=== PATIENT | female | born 1990 | race Caucasian/White ===

== ENCOUNTER 2023-04-12 17:33 | Emergency (ER) | payer BC, OTHER, SELFPAY ==
--- NOTE | 2023-04-12 17:37 | PC.NURSE ---
patient left without being triaged
== END 2023-04-12 18:23 | disposition left against medical advice (07) ==
LOC: ANHED 18:04
DX: Z53.21 Procedure and treatment not carried out due to patient leaving prior to being seen by health care provider (principal)
CPT/HCPCS: 99199

== ENCOUNTER 2023-04-18 17:28 | Emergency (ER) | payer BC, OTHER, SELFPAY ==
--- NOTE | ~2023-04-18 | XR_ITS ---
EXAM: XR foot LT min 3V DATE: 04/18/2023 20:45 HISTORY: swelling, pain, bruising . COMPARISON: None available. FINDINGS: Normal mineralization. Old lateral malleolus avulsion fracture fragment. No acute fracture or dislocation. No lytic or blastic lesion. Mild degenerative change at the tibiotalar joint. Mild A chilles and plantar enthesopathy. No erosion or periosteal change. Soft tissues within normal limits. IMPRESSION: No acute osseous finding in the left foot. Reviewed, dictated and finalized at location [facility]. ER
[2023-04-18 17:49] VITALS: BP 122/72; PULSE 76; RESP 16; TEMP 36.7; O2SAT 100
[2023-04-18 19:35] VITALS: BP 119/76; PULSE 68; RESP 15; O2SAT 100
[2023-04-18] MEDS: KETOROLAC 30 MG/ML VIAL (*BKC) 15 MG IM (21:20)
[2023-04-18] MEDS: ACETAMINOPHEN 500 MG TABLET 1000 MG PO (21:21)
--- NOTE | 2023-04-18 21:24 | ED.GENADULT ---
HPI - General Adult General Chief complaint: Extremity Injury, Lower Stated complaint: LEFT FOOT PAIN Time Seen by Provider: 04/18/23 20:36 History of Present Illness HPI narrative: This is a 32-year-old female presenting ED with chief complaint foot pain. She has had it for 2 weeks. It is worse with movement. She has some mild swelling over the top her foot. It is associated with some tingling in her center 3 toes. 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 Related Data Home Medications Medication Instructions Recorded Confirmed fluticasone propionate 50 intranasal 04/04/23 04/04/23 mcg/actuation nasal spray,suspension lisdexamfetamine 70 mg capsule 70 mg PO 04/04/23 04/04/23 (Vyvanse) pregabalin 100 mg capsule 100 mg PO TID 04/04/23 04/04/23 Allergies Allergy/AdvReac Type Severity Reaction Status Date / Time No Known Allergies Allergy Mild Verified 04/04/23 10:43 [facility] Past Medical History Medical History (Updated 04/18/23 @ 21:27 by Chance Saavedra MD) Encounter for removal of intrauterine contraceptive device Social History Social History (Updated 04/04/23 @ 10:47 by Page Johnson CMA) Smoking status: Current every day smoker Tobacco type: e-cigarettes/vaping Alcohol intake: never Substance use: never Living arrangements: with family Occupation/Education: occupation Gender identity (if verbalized by the patient): Female Exam Narrative: APPEARANCE: No apparent distress. Head: atraumatic. EYES: EOMI, NOSE: Atraumatic NECK: Trachea midline RESPIRATORY: No increased rate of breathing CARDIOVASCULAR: RRR, ABDOMINAL: Non-distended MUSCULOSKELETAl: Focal exam of the foot revealed some mild swelling over the top of the foot just proximal to the 2nd through 4th toes. NEURO: Alert. Moving 4/4 extremities SKIN:: Warm, dry. Normal color PSYCHIATRIC: Normal affect Course Vital Signs Vital signs: Vital Signs Temperature 98.1 F 04/18/23 17:49 Pulse Rate 76 04/18/23 17:49 Respiratory Rate 16 04/18/23 17:49 Blood Pressure 122/72 04/18/23 17:49 Pulse Oximetry 100 04/18/23 17:49 Temperature 98.1 F 04/18/23 17:49 Pulse Rate 76 04/18/23 17:49 Respiratory Rate 16 04/18/23 17:49 Blood Pressure 122/72 04/18/23 17:49 Pulse Oximetry 100 04/18/23 17:49 Medical Decision Making MDM Narrative Medical decision making narrative: -Course: 32-year-old female presenting with foot pain. X-ray negative. Patient treated with NSAIDs and given Podiatry follow-up -DDX includes but is not limited to: Saenz's neuroma, metatarsalgia arthritis, neuropathy -Co-morbidities complicating care: Neuropathy -Social determinants of health: Works at [employer] -Independent interpretation of studies: X-ray negative -Interventions: Toradol Tylenol -Shared decision making / Disposition: Discharge -RX Motrin Tylenol Vital Signs Vital Signs: Vital Signs Temperature 98.1 F 04/18/23 17:49 Pulse Rate 76 04/18/23 17:49 Respiratory Rate 16 04/18/23 17:49 Blood Pressure 122/72 04/18/23 17:49 Pulse Oximetry 100 04/18/23 17:49 Temperature 98.1 F 04/18/23 17:49 Pulse Rate 76 04/18/23 17:49 Respiratory Rate 16 04/18/23 17:49 Blood Pressure 122/72 04/18/23 17:49 Pulse Oximetry 100 04/18/23 17:49 Discharge Plan Discharge Clinical Impression: Acute foot pain Patient Disposition: Home, Self-Care Condition: Stable Instructions: Antibiotic Form, Metatarsalgia (DC) Additional Instructions: please take Motrin Tylenol as instructed. Please follow-up Podiatry Prescriptions: New ibuprofen 800 mg tablet 800 mg PO TID PRN (Reason: pain) 7 Days Qty: 21 0RF acetaminophen 500 mg tablet 1,000 mg PO TID PRN (Reason: zena) 7 Days Qty: 42 0RF No Action pregabalin 100 mg capsule 100 mg PO TID fluticasone propionate 50 mcg/actuation spray,suspension intranasal lisdexamfetami
[2023-04-18 21:49] VITALS: BP 124/77; PULSE 73; RESP 16; O2SAT 100
== END 2023-04-18 21:50 | disposition home or self-care (01) ==
PROVIDERS: Emergency Provider Emergency Medicine; PCP Family Medicine
DX: M79.672 Pain in left foot (principal); F17.290 Nicotine dependence, other tobacco product, uncomplicated
CPT/HCPCS: 73630; 96372; 99283; A9270; J1885

== ENCOUNTER 2023-05-13 19:31 | Emergency (ER) | payer BC, OTHER, SELFPAY ==
[2023-05-13 19:40] VITALS: BP 131/77; PULSE 78; RESP 14; TEMP 36; O2SAT 96
--- NOTE | 2023-05-13 20:55 | ED.DENTAL ---
HPI - Dental/Oral General Chief complaint: Dental/Oral Stated complaint: broken tooth Time Seen by Provider: 05/13/23 19:54 History of Present Illness HPI Narrative: 32-year-old female presenting with dental pain. States that she thinks that she cracked 1 of her top molars a few days ago. She saw her dentist yesterday who got x-rays. They were unsure if they needed to pull the tooth or if she needed a root canal so they scheduled her to see an press set up person in 4 days. They sent her home with Tylenol with codeine and ibuprofen but no antibiotics. She states that the pain has continued. No swelling or fevers. No further complaints. Related Data Home Medications Medication Instructions Recorded Confirmed fluticasone propionate 50 intranasal 04/04/23 04/21/23 mcg/actuation nasal spray,suspension lisdexamfetamine 70 mg capsule 70 mg PO 04/04/23 04/21/23 (Vyvanse) pregabalin 100 mg capsule 100 mg PO TID 04/04/23 04/21/23 Allergies Allergy/AdvReac Type Severity Reaction Status Date / Time No Known Allergies Allergy Mild Verified 04/21/23 09:10 Review of Systems Review of Systems: All systems reviewed & are unremarkable except as noted in HPI and below PMFSH Past Medical History Medical History Encounter for removal of intrauterine contraceptive device Social History Social History Smoking status: Current every day smoker Tobacco type: e-cigarettes/vaping Alcohol intake: never Substance use: never Living arrangements: with family Occupation/Education: occupation Gender identity (if verbalized by the patient): Female Exam Narrative: GENERAL: Well-appearing, In no acute distress HEAD: Normocephalic, atraumatic. EYES: PERRLA and EOMI. ENT: +tenderness of tooth #3, no obvious cavities, no abscess NECK: Supple. CHEST: No respiratory distress. HEART: Regular rate and rhythm. EXTREMITIES: Normal range of motion. SKIN: Warm, dry, no rash. NEURO: Alert and oriented x3. PSYCH: Normal mood and affect. Course Vital Signs Vital signs: Vital Signs Temperature 96.8 F L 05/13/23 19:40 Pulse Rate 78 03/22/24 19:40 Respiratory Rate 14 05/13/23 19:40 Blood Pressure 131/77 05/13/23 19:40 Pulse Oximetry 96 05/13/23 19:40 Temperature 96.8 F L 05/13/23 19:40 Pulse Rate 78 05/13/23 19:40 Respiratory Rate 14 05/13/23 19:40 Blood Pressure 131/77 05/13/23 19:40 Pulse Oximetry 96 05/13/23 19:40 MDM - Dental/Oral MDM Narrative Medical decision making narrative: 32-year-old female presenting with dental pain. Vitals are stable. Tooth 3 is tender with palpation. Patient has already seen her dentist, has an appointment with an press set up person in 4 days. She is already on ibuprofen and Tylenol with codeine. Will start her on Augmentin. She is safe for outpatient management. Discharged stable condition. Differential Diagnosis Differential diagnosis: Likely gingival abscess, dental caries, toothache, dental abscess, fracture of tooth and aphthous ulcer Medical Records Attestation: I reviewed the patient's medical records. Critical Care Time Critical Care Time Critical Care Time: No Discharge Plan Discharge Clinical Impression: Toothache Patient Disposition: Home, Self-Care Condition: Stable Instructions: Antibiotic Form, Toothache (ED) Additional Instructions: Please complete the antibiotics as prescribed. Please use the ibuprofen and Tylenol with codeine as prescribed. Follow up with the press set up person as scheduled. Prescriptions: New amoxicillin-pot clavulanate 875-125 mg tablet 1 tablet PO Q12H Qty: 14 0RF No Action pregabalin 100 mg capsule 100 mg PO TID fluticasone propionate 50 mcg/actuation spray,suspension intranasal lisdexamfetamine [Vyvanse] 70 mg capsule 70 mg PO Follow-up/Ref
[2023-05-13] MEDS: oxyCODONE/ACETAMINOPHEN (*CRX) 5-325 MG TABLET 1 TABLET PO (21:04)
[2023-05-13] MEDS: KETOROLAC 30 MG/ML VIAL (*BKC) IM (21:04)
[2023-05-13] MEDS: AMOXICILLIN/CLAVULANATE K 875-125 MG TAB 1 TABLET PO (21:10)
== END 2023-05-13 21:16 | disposition home or self-care (01) ==
PROVIDERS: Emergency Provider Emergency Medicine; PCP Family Medicine
DX: K08.89 Other specified disorders of teeth and supporting structures (principal); F17.290 Nicotine dependence, other tobacco product, uncomplicated
CPT/HCPCS: 96372; 99283; A9270; J1885

== ENCOUNTER 2023-05-18 05:36 | Emergency (ER) | payer BC, OTHER, SELFPAY ==
[2023-05-18 05:40] VITALS: BP 147/93; PULSE 95; RESP 18; TEMP 36.4; O2SAT 99
--- NOTE | 2023-05-18 05:48 | ED.DENTAL ---
HPI - Dental/Oral General Chief complaint: Dental/Oral Stated complaint: dental pain, upper right Time Seen by Provider: 05/18/23 05:47 History of Present Illness HPI Narrative: Patient is a 32-year-old female who presents emergency department this evening complaining of a toothache. Patient admits that she had a root canal performed earlier today and she was placed on antibiotics but was not provided with pain medications. Patient states that her tooth continues to bother her and she could not sleep. She denies any fevers or chills, and is currently denying any additional symptoms. There are no other modifying, alleviating, or precipitating factors at this time. Related Data Home Medications Medication Instructions Recorded Confirmed fluticasone propionate 50 intranasal 04/04/23 04/21/23 mcg/actuation nasal spray,suspension lisdexamfetamine 70 mg capsule 70 mg PO 04/04/23 04/21/23 (Vyvanse) pregabalin 100 mg capsule 100 mg PO TID 04/04/23 04/21/23 Allergies Allergy/AdvReac Type Severity Reaction Status Date / Time No Known Allergies Allergy Mild Verified 04/21/23 09:10 Review of Systems Review of Systems: All systems are reviewed and are negative unless stated otherwise in the HPI. [facility] Past Medical History Medical History Encounter for removal of intrauterine contraceptive device Social History Social History Smoking status: Current every day smoker Tobacco type: e-cigarettes/vaping Alcohol intake: never Substance use: never Living arrangements: with family Occupation/Education: occupation Gender identity (if verbalized by the patient): Female Exam Narrative: General: Alert, awake, afebrile, in no acute distress. HEENT: PERRL, no rhinorrhea, no post nasal drip, oropharynx clear, no evidence dental abscess, good dental hygiene. Neck: Trachea midline, no JVD, no lymphadenopathy. Cardiovascular: Regular rate and rhythm, no murmurs, rubs or gallops, no peripheral edema. Respiratory: Clear to auscultation bilaterally, no tachypnea, no wheezing, no rhonchi, no rubs, no respiratory distress. Abdomen: Soft, nontender, nondistended, no rebound, no guarding, no peritoneal signs. Musculoskeletal: No joint swelling or deformity, normal muscle tone. Skin: No rashes or petechia, no signs of infection. Psychiatric: Alert and oriented, normal behavior and judgment for situation. Neurological: Alert and oriented to person, place, and time. Follows all commands. No focal deficits, speech is clear and fluent. Course Vital Signs Vital signs: Vital Signs Temperature 97.5 F L 05/18/23 05:40 Pulse Rate 95 05/18/23 05:40 Respiratory Rate 18 05/18/23 05:40 Blood Pressure 147/93 H 05/18/23 05:40 Pulse Oximetry 99 05/18/23 05:40 Oxygen Delivery Room Air 05/18/23 05:40 Temperature 97.5 F L 05/18/23 05:40 Pulse Rate 95 05/18/23 05:40 Respiratory Rate 18 05/18/23 05:40 Blood Pressure 147/93 H 05/18/23 05:40 Pulse Oximetry 99 05/18/23 05:40 Oxygen Delivery Room Air 05/18/23 05:40 MDM - Dental/Oral MDM Narrative Medical decision making narrative: The patient was evaluated by myself in the emergency department. History is obtained from patient who is an independent historian and physical exam was performed. External medical records were reviewed at this time. Patient was administered an oral Keyes 5-325 mg after confirming that she did not drive here and has a ride home. She was informed that she will not be prescribed any narcotics to go home on as the root canal should have taking care of her pain and that if she continues to have pain she needs to follow up with her dentist for further evaluation patient is agreeable. Comorbidities impacting this visit include none. I have evaluated and discussed social determinants of health with the
[2023-05-18] MEDS: HYDROcodone/acetaminophen (*CRX) 7.5-325 MG TABLET 1 TAB PO (06:22)
== END 2023-05-18 06:24 | disposition home or self-care (01) ==
PROVIDERS: Emergency Provider Emergency Medicine; PCP Family Medicine
DX: K08.89 Other specified disorders of teeth and supporting structures (principal); Z98.818 Other dental procedure status; F17.290 Nicotine dependence, other tobacco product, uncomplicated
CPT/HCPCS: 99283; A9270

== ENCOUNTER 2023-10-16 21:20 | Emergency (ER) | payer BC, SELFPAY ==
[2023-10-16 21:23] VITALS: BP 142/87; PULSE 93; RESP 15; TEMP 36.5; O2SAT 100
--- NOTE | 2023-10-17 05:00 | PC.NURSE ---
Radiology notified of need for 7am outpatient ultrasound appt.
--- NOTE | 2023-10-17 05:11 | ED.GENADULT ---
HPI - General Adult General Chief complaint: Extremity Injury, Lower Stated complaint: lump on R leg , a little SOB Time Seen by Provider: 10/17/23 04:46 History of Present Illness HPI narrative: Patient is a 32-year-old female who presents the emergency department this evening complaining of an area of erythema and tenderness to her right scott region. Patient states that she has had a bump there for a few months but recently noticed that the area was becoming more red and warm to the touch and tender. Patient was concerned about DVT and decided to come to the emergency department for further evaluation. Patient states that she is approximately 4 weeks . Denies any additional symptoms or concerns at this time including any chest pain or shortness of breath. Related Data Home Medications Medication Instructions Recorded Confirmed fluticasone propionate 50 intranasal 04/04/23 04/21/23 mcg/actuation nasal spray,suspension lisdexamfetamine 70 mg capsule 70 mg PO 04/04/23 04/21/23 (Vyvanse) pregabalin 100 mg capsule 100 mg PO TID 04/04/23 04/21/23 Allergies Allergy/AdvReac Type Severity Reaction Status Date / Time No Known Allergies Allergy Mild Verified 10/16/23 21:26 Review of Systems Review of Systems: All systems are reviewed and are negative unless stated otherwise in the HPI. [facility] Past Medical History Medical History Encounter for removal of intrauterine contraceptive device Social History Social History Smoking status: Current every day smoker Tobacco type: e-cigarettes/vaping Alcohol intake: never Substance use: never Living arrangements: with family Occupation/Education: occupation Gender identity (if verbalized by the patient): Female Exam Narrative: General: Alert, awake, afebrile, in no acute distress. HEENT: PERRL, no rhinorrhea, no post nasal drip, oropharynx clear. Cardiovascular: Regular rate and rhythm, no murmurs, rubs or gallops, no peripheral edema. Respiratory: Clear to auscultation bilaterally, no tachypnea, no wheezing, no rhonchi, no rubs, no respiratory distress. Abdomen: Soft, nontender, nondistended, no rebound, no guarding, no peritoneal signs. Musculoskeletal: Right mid scott round area of erythema that is tender to touch measuring approximately 2 x 2 cm, no calf swelling or tenderness to palpation Skin: No rashes or petechia, no signs of infection. Neurological: Alert and oriented to person, place, and time. Follows all commands. No focal deficits, speech is clear and fluent. Course Vital Signs Vital signs: Vital Signs Temperature 97.7 F 10/16/23 21:23 Pulse Rate 93 10/16/23 21:23 Respiratory Rate 15 10/16/23 21:23 Blood Pressure 142/87 H 10/16/23 21:23 Pulse Oximetry 100 10/16/23 21:23 Oxygen Delivery Room Air 10/16/23 21:23 Temperature 97.7 F 10/16/23 21:23 Pulse Rate 93 10/16/23 21:23 Respiratory Rate 15 10/16/23 21:23 Blood Pressure 142/87 H 10/16/23 21:23 Pulse Oximetry 100 10/16/23 21:23 Oxygen Delivery Room Air 10/16/23 21:23 Medical Decision Making MDM Narrative Medical decision making narrative: The patient was evaluated by myself in the emergency department. History is obtained from patient who is an independent historian and physical exam was performed. External medical records were reviewed at this time. Patient was informed that the area does appear to be a local skin infection/ cellulitis. No evidence of fluid collection or abscess. Bedside ultrasound was performed at this time and did reveal cobblestoning concerning with cellulitis patient was informed that she will be placed on an oral antibiotic. Patient was also informed that she will be scheduled for an outpatient ultrasound of right lower extremity to rule out a DVT which will be scheduled in the morning at
[2023-10-17 05:25] VITALS: BP 132/72; PULSE 88; RESP 14; O2SAT 100
== END 2023-10-17 05:27 | disposition home or self-care (01) ==
PROVIDERS: Emergency Provider Emergency Medicine; PCP Family Medicine
DX: L03.115 Cellulitis of right lower limb (principal); F17.290 Nicotine dependence, other tobacco product, uncomplicated
CPT/HCPCS: 99283

== ENCOUNTER 2023-10-17 07:06 | Outpatient (CLI) | payer BC, SELFPAY ==
--- NOTE | ~2023-10-17 | US_ITS ---
Duplex Sonography of the right extremity: Indication: Pain Findings: Sagittal and transverse B-mode images as well as color-flow imaging were performed on the r ight femoral and popliteal veins. B-mode examination was done without and with compression in the tr ansverse plane. There is good visualization of the common femoral, proximal profunda femoral, superf icial femoral, greater saphenous, and popliteal veins. Normal flow was seen on color-flow imaging. N ormal compressibility was demonstrated. Visualized calf veins are also patent. Impression: No evidence of deep vein thrombosis involving the right lower extremity. Reviewed, dictated and finalized at location M. Impression: No evidence of deep vein thrombosis involving the right lower extremity.
== END 2023-10-17 07:07 | disposition home or self-care (01) ==
PROVIDERS: Visit Provider Emergency Medicine
DX: M79.604 Pain in right leg (principal)
CPT/HCPCS: 93971

== ENCOUNTER 2023-11-02 10:28 | Outpatient (CLI) | payer BC, SELFPAY ==
[2023-11-02 19:33] LABS: Basophils Percent Auto 0.3 % (0.2-1.2); Eosinophils Absolute Auto 0.1 K/mm3 (0-0.3); Eosinophils Percent Auto 0.9 % (0-4.4); Hematocrit 37.4 % (37.0-47.0); Hemoglobin 12.5 g/dL (12.0-15.0); Immature Granulocyte Absolute 0.01 K/mm3 (0.00-0.031); Immature Granulocyte Percent A 0.1 % (0-0.5); Lymphocytes Absolute Auto 1.41 K/mm3 (0.9-3.2); Lymphocytes Percent Auto 17.8 % (18.3-44.2); Mean Corpuscular HGB Conc 33.4 g/dl (32-36); Mean Corpuscular Volume 92.8 fl (80-100); Mean Platelet Volume 10.9 fl (7.4-10.4); Monocytes Absolute Auto 0.5 K/mm3 (0.1-0.6); Monocytes Percent Auto 6.4 % (2.6-8.5); Neutrophils Absolute Auto 5.9 K/mm3 (1.3-6.7); Neutrophils Percent Auto 74.5 % (45.5-73.1); Platelet Count Result 256 k/mm3 (150-375); Red Blood Count 4.03 M/mm3 (4.2-5.4); Red Cell Distribution Width 13.1 % (11.5-14.5); White Blood Count 7.9 K/mm3 (4.5-10.0)
[2023-11-02 20:23] LABS: Alanine Aminotransferase 14 U/L (6-35); Albumin Level 3.9 g/dL (3.5-5.1); Alkaline Phosphatase 55 U/L (38-126); Anion Gap 13 mmol/L (4-12); Aspartate Amino Transferase 31 U/L (14-36); Bilirubin,Total 0.3 mg/dL (0.2-1.3); Blood Urea Nitrogen 11 mg/dL (7-17); Carbon Dioxide 21 mmol/L (22-30); Chloride 102 mmol/L (98-107); Estimated Glomerular Filt Rate > 60; Glucose 110 mg/dL (65-110); Glucose 1 Hour PP 50gm Dose 109 mg/dL; Potassium 3.4 mmol/L (3.4-5.0); Sodium 136 mmol/L (137-145)
[2023-11-02 20:43] LABS: Hepatitis B Surface Antigen Negative (Negative); Rubella IgG Antibody 40.4 IU/ML
[2023-11-02 20:45] LABS: HIV 1/2 Ab P24 Ag Result Negative (Negative)
[2023-11-03 01:37] LABS: Rapid Plasma Reagin Non-Reactive (NonReactive)
== END 2023-11-02 10:29 | disposition home or self-care (01) ==
PROVIDERS: Visit Provider Obstetrics & Gynecology
DX: Z34.90 Encounter for supervision of normal pregnancy, unspecified, unspecified trimester (principal); Z3A.00 Weeks of gestation of pregnancy not specified; Z87.59 Personal history of other complications of pregnancy, childbirth and the puerperium
CPT/HCPCS: 36415; 80053; 82947; 84702; 85025; 86592; 86644; 86703; 86747; 86762; 86787; 86850; 86900; 86901; 87086; 87340; G0432

== ENCOUNTER 2023-11-05 10:29 | Emergency (ER) | payer BC, SELFPAY ==
--- NOTE | 2023-11-05 10:44 | PC.NURSE ---
No answer when called for in lobby for triage.
== END 2023-11-05 11:02 | disposition left against medical advice (07) ==
LOC: ANHED 10:53
DX: Z53.21 Procedure and treatment not carried out due to patient leaving prior to being seen by health care provider (principal)
CPT/HCPCS: 99199

== ENCOUNTER 2024-03-26 11:11 | Outpatient (RCR) | payer BC, SELFPAY ==
[2024-03-26 11:31] VITALS: BP 118/65; PULSE 92
[2024-03-26 11:46] VITALS: BP 114/65; PULSE 93
[2024-03-26 12:01] VITALS: BP 112/67; PULSE 90
[2024-03-26 12:16] VITALS: BP 120/70; PULSE 100
[2024-03-26 12:20] VITALS: BP 118/65; PULSE 98
== END 2024-06-24 23:59 | disposition home or self-care (01) ==
LOC: ANHOBOP 11:11
PROVIDERS: Visit Provider Obstetrics & Gynecology
DX: O36.8190 Decreased fetal movements, unspecified trimester, not applicable or unspecified (principal)
CPT/HCPCS: 59025

== ENCOUNTER 2024-04-02 15:25 | Outpatient (CLI) | payer BC, SELFPAY ==
--- OUTSIDE RECORDS SUMMARY | 2024-04-02 15:34 | XMS_ITS | Encounter Summary ---
Author Organization [facility] Address [address] [place] [address] Phone Care Team Providers Care Surveillance Sensor Operator Name Role Phone Enrrique Ordonez MD Primary Care Provider [phone] Rohit Hodgson APRN, CNP Primary Care Pr ovider Reason for Visit * Reason Comments Medication Refill Encounter Details Date Type Department Care Team (Late st Contact Info) Description 06/23/2021 Refill [facility] - Family Medicine [facility] [address] [place] [id number] Enrrique Ordonez MD [address] [place] [address] Medication Refill Social History Tobacco Use Types Packs/Day Years Used Date Smoking Tobacco: Never Cigarettes Smokeless Tobacco: Never Alcohol Use Standard Drinks/Week Comments No 0 (1 standard drink = 0.6 oz pur e alcohol) Quit in 2018 PHQ-2 Answer Date Recorded Total Score - Questions 1-9 10 07/22 Education Answer Date Recorded What is the highest level of school you have completed or the highest degree you have received? Associate degree: academic program 02/13/2020 Comments No Sex and Gender Information Value Date Recorded Sex Assigned at Not on file Legal Sex Female 7:04 AM CDT Gender Identity Female 11/18/2022 7:00 PM CDT Sexual Orientation Straight 11/18/2022 7: 00 PM CDT Occupation Industry Job Start Date Job End Date [employer] Not on file Not on file Not on file documented as of this encounter Miscellaneous Notes * Telephone Encounter - Jenni Crawford RN - 06/24/2021 11:28 AM CDT Medication failed the protocol, provider to review and approve the medication order if appropriate. Requested Prescriptions Pending Prescriptions Disp Refills pregabalin (LYRICA) 100 MG Capsule [Pharmacy Med Name: PREGABALIN 100MG CAPSULES] 90 Capsule 0 Sig: TAKE 1 CAPSULE BY MOUTH THREE TIMES DAILY Not Delegated - Anticonvulsants Excluding Benzodiazepines Protocol Failed - 06/23/2021 7:32 PM Failed - This refill cannot be delegated Passed - Visit with relevant provider in past 12 months or upcoming 90 days Recent Visits Date Type Provider Dept 04/21/21 Office Visit Enrrique Ordonez MD [facility] 03/03/21 Telemedicine Enrrique Ordonez MD [facility] 12/10/20 Office Visit Enrrique Ordonez MD [facility] 07/01/20 Telemedicine Enrrique Ordonez MD [facility] Showing recent visits within past 365 days and meeting all other requirements Future Appointments No visits were found meeting these conditions. Showing future appointments within next 90 days and meeting all other requirements documented in this encounter Plan of Treatment Not on file documented as of this encounter Visit Diagnoses Diagnosis Neuropathy Mononeuritis of unspecified site documented in this encounter Additional Health Concerns Infection Onset Date Last Indicated Resolved Time COVID - 19 12/21/2022 12/21/2022 12/31/2022 12:1 6 AM MANAGEMENT ASSISTANT Assessment Noted Time PHQ-9 Depression Total Score: 10 020 9:19 AM CDT documented as of this encounter Care Teams Surveillance Sensor Operator Relationship Specialty Start Date End Date Enrrique Ordonez MD PCP - General Family Medicine 08/03/19 10/12/23 Rohit Hodgson APRN, MAIL PROCESSING MACHINE OPERATOR [address] [place] [address] PCP - General Advanced Practice Nurse 10/14/23 documented as of this encounter
--- OUTSIDE RECORDS SUMMARY | 2024-04-02 15:34 | XMS_ITS | Encounter Summary ---
Author Organization [facility] Address [address] [place] [address] Phone Care Team Providers Care [employer] Name Role Phone Enrrique Ordonez MD Primary Care Provider [phone] Rohit Hodgson APRN, CNP Primary Care Pr ovider Reason for Visit * Reason Comments Medication Refill Encounter Details Date Type Department Care Team (Late st Contact Info) Description 07/24/2021 Refill [facility] Medical [facility] - Family Medicine [facility] [address] [place] [phone] Enrrique Ordonez MD [address] [place] [address] Medication Refill Social History Tobacco Use Types [...] Industry Job Start Date Job End Date [employer] Not on file Not on file Not on file documented as of this encounter Miscellaneous Notes * Telephone Encounter - Jenni Crawford RN - 07/28/2021 8:15 AM CDT Name from pharmacy: PREGABALIN 100MG CAPSULES Will file in chart as: pregabalin (LYRICA) 100 MG Capsule The original prescription was reordered on 07/24/2021 by Enrrique Ordonez MD. * Telephone Encounter - Helen Bradford RN - 07/24/2021 4:16 PM CDT Duplicate request, original sent to PCP documented in this encounter Plan of Treatment Not on file documented as of this encounter Visit Diagnoses Diagnosis Neuropathy Mononeuritis of unspecified site documented in this encounter Additional Health Concerns Infection Onset Date Last Indicated Resolved Time COVID - 19 12/21/2022 12/21/2022 12/31/2022 12:1 6 AM HAT STOCK LAMINATING MACHINE OPERATOR Assessment Noted Time PHQ-9 Depression Total Score: 10 08/02/ 020 9:19 AM CDT documented as of this encounter Care Teams [employer] Relationship Specialty Start Date End Date Enrrique Ordonez MD PCP - General Family Medicine 08/03/19 10/12/23 Rohit Hodgson, METAL BUGGY OPERATOR, CODING AUDITOR [address] [address] PCP - General Advanced Practice Nurse 10/14/23 documented as of this encounter
--- OUTSIDE RECORDS SUMMARY | 2024-04-02 15:34 | XMS_ITS | Encounter Summary ---
Author Organization [facility] Address [address] [place] [address] Phone Care Team Providers Care Reconciliation Machine Operator Name Role Phone Enrrique Ordonez MD Primary Care Provider [phone] Rohit Hodgson APRN, CNP Primary Care Pr ovider Reason for Visit * Reason Comments Medication Refill Encounter Details Date Type Department Care Team (Late st Contact Info) Description 10/25/[address] [facility] Medical Group - Family Medicine [facility] [address] [place] [address] Rohit Hodgson APRN, EMMANUEL [address] [address] Medication Refill Social History Tobacco Use Types Packs/Day Years Used Date Smoking Tobacco: Never Smokeless Tobacco: Never Alcohol Use Standard Drinks/Week Comments No 0 (1 standard drink = 0.6 oz pur e alcohol) Quit in 2018 PHQ-2 Answer Date Recorded Total Score - Questions 1-9 10 07/22 Education Answer Date Recorded What is the highest level of school you have completed or the highest degree you have received? 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 Requested Prescriptions Pending Prescriptions Disp Refills Lidocaine Viscous HCl (XYLOCAINE) 2 % Solution [Pharmacy Med Name: LIDOCAINE 2% VISC ORAL SOLUTION]300 mL 0 Sig: GARGLE AND SWALLOW 10ML BY MOUTH/THROAT EVERY 4 HOURS NEEDED FOR PAIN OR IRRITATION. Not Delegated - Off Protocol Failed - 10/25/2022 7:59 PM Failed - This refill cannot be delegated Passed - Visit with relevant provider in past 12 months or upcoming 90 days Recent Visits Date Type Provider Dept 04/26/22 Telemedicine Rohit Hodgson APRN, EMMANUEL [facility] [place] 02/01/22 Office Visit Enrrique Ordonez MD [facility] 01/04/22 Office Visit Enrrique Ordonez MD [facility] 12/07/21 Office Visit Enrrique Ordonez MD [facility] 11/09/21 Office Visit Enrrique Ordonez MD [facility] [place] Showing recent visits within past 365 days and meeting all other requirements Future Appointments No visits were found meeting these conditions. Showing future appointments within next 90 days and meeting all other requirements documented in this encounter Plan of Treatment Not on file documented as of this encounter Visit Diagnoses Diagnosis Strep pharyngitis Streptococcal sore throat documented in this encounter Additional Health Concerns Infection Onset Date Last Indicated Resolved Time COVID - 19 12/21/2022 12/21/2022 12/31/2022 12:1 6 AM SKIN CARE INSTRUCTOR Assessment Noted Time PHQ-9 Depression Total Score: 10 020 9:19 AM CDT documented as of this encounter Care Teams Reconciliation Machine Operator Relationship Specialty Start Date End Date Enrrique Ordonez MD PCP - General Family Medicine 08/03/19 10/12/23 Rohit Hodgson APRN, INSULATION HOSEMAN [address] [place] [address] PCP - General Advanced Practice Nurse 10/14/23 documented as of this encounter
--- OUTSIDE RECORDS SUMMARY | 2024-04-02 15:34 | XMS_ITS | Encounter Summary ---
Author Organization [facility] Address [address] 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 No / Unsure 04/13/2021 9:52 AM BLOGS MANAGER documented as of this encounter Miscellaneous Notes * Telephone Encounter - Noa Arce - 04/13/2021 9:52 AM CST Images from the original note were not included. Travel Screening Question Response In the last month, have you been in contact with someone who was confirmed or suspected to have Coronavirus / COVID-19? No / Unsure Have you had a COVID-19 viral test in the last 14 days? Do you have any of the following new or worsening symptoms? Fever;Cough;Fatigue Have you traveled internationally in the last month? No Travel History Travel since 03/13/21 No documented travel since 03/13/21 Is patient experiencing any of the following? Trouble breathing: Persistent pain or pressure in the chest: New confusion: Inability to wake or stay awake: Pale, you, or blue colored skin, lips, or nail Date symptoms began or date of exposure or date of positive test:N/A If none of the above symptoms continue with the below advice: 1. Testing is recommended- go online to [email or web address] for testing locations, utilize [employer] toschedule testing, or use the [employer] tana on your smart phone to locate local testing sites. 2. Remain at home while awaiting test results and until after at least 5 day since symptoms first appeared AND at least 24 hours with no fever without the use of fever-reducing medications AND symptoms have improved. 3. Stay at home unless medical care is advised by your provider 4. Separate yourself from other people and animals in your home as much as possible, wear a well-fitting mask when around others 5. Clean all high touch surfaces everyday. 6. Monitor your symptoms, if you have an emergency warning sign (including trouble breathing) seek emergency medical care immediately. 7. Loss of taste and smell may persist for weeks or months after recovery and need not delay the end of isolation. 8. Utilize cdc.gov for any additional information. [facility] is evaluating the most recent CDC guidance and will make changes as necessary S MANAGER documented in this encounter Plan of Treatment Not on file documented as of this encounter Visit Diagnoses Not on filedocumented in this encounter Additional Health Concerns Infection Onset Date Last Indicated Resolved Time COVID - 19 12/21/2022 12/21/2022 12/31/2022 12:1 6 AM BLOGS MANAGER Assessment Noted Time PHQ-9 Depression Total Score: 10 020 9:19 AM CDT documented as of this encounter Care Teams Educational Diagnostician Relationship Specialty Start Date End Date Enrrique Ordonez MD PCP - General Family Medicine 08/03/19 10/12/23 Rohit Hodgson, DIGITAL COMPUTER SYSTEMS ANALYST, JUMP ROLL OPERATOR [address] [address] PCP - General Advanced Practice Nurse 10/14/23 documented as of this encounter
--- OUTSIDE RECORDS SUMMARY | 2024-04-02 15:34 | XMS_ITS | Encounter Summary ---
Author Organization [facility] Address [address] [place] [address] Phone Care Team Providers Care Drainage Inspector Name Role Phone Enrrique Ordonez MD Primary Care Provider [phone] Rohit Hodgson APRN CANDLEMAKING LABORER Primary Care Pr ovider Reason for Visit * Reason Onset Date Comments Medication Refill Medication Refill 10/28/2020 Medication Refill 10/30/2020 Encounter Details Date Type Department Care Team (Late st Contact Info) Description 10/24/2020 Refill [facility] Medical Group - Family Medicine [facility] [address] [place] [address] Enrrique Ordonez MD [address] [place] [address] Medication Refill; Medication Refill; Medication Refill Social History Tobacco Use Types [...] 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 To [facility]? She will schedule her annual appointment * Telephone Encounter - Jenni Crawford RN - 10/28/2020 10:23 AM CDT Name from pharmacy: PREGABALIN 75MG CAPSULES Will file in chart as: pregabalin (LYRICA) 75 MG Capsule The original prescription was discontinued on 07/01/2020 by Enrrique Ordonez MD for the following reason: Lack of Efficacy. Dose was increased to 100 mg tabs documented in this encounter Plan of Treatment Not on file documented as of this encounter Visit Diagnoses Diagnosis Neuropathy Mononeuritis of unspecified site documented in this encounter Additional Health Concerns Infection Onset Date Last Indicated Resolved Time COVID - 19 Confirmed 03/07/2021 03/07/2021 022 12:16 AM FRONT OFFICE ATTENDANT COVID - 19 12/21/2022 12/21/2022 12/31/2022 12:1 6 AM FRONT OFFICE ATTENDANT Assessment Noted Time PHQ-9 Depression Total Score: 10 020 9:19 AM CDT documented as of this encounter Care Teams Drainage Inspector Relationship Specialty Start Date End Date Enrrique Ordonez MD PCP - General Family Medicine 08/03/19 10/12/23 Rohit Hodgson, INCIDENT HANDLER, CANDLEMAKING LABORER [address] [address] PCP - General Advanced Practice Nurse 10/14/23 documented as of this encounter
--- OUTSIDE RECORDS SUMMARY | 2024-04-02 15:34 | XMS_ITS | Clinical Summary ---
Author Organization [facility] Address [address] [place] [address] Phone Care Team Providers Care Rn Acute Name Role Phone Rohit Hodgson APRN, CNP Primary Care Pr ovider Allergies No known active allergies Medications ondansetron (Zofran) 4 MG Tablet Take 4 mg by mouth every 6 hours as needed for Nausea - 1st line. Active acetaminophen (Tylenol) 325 MG Tablet Take 325 mg by mouth every 4 hours as needed. Active Active Problems Problem Noted Date Diagnosed Date Insomnia 01/04/2022 Increased urinary frequency 01/04/2022 Anxiety 05/07/2020 Attention deficit disorder (ADD) without hyperac tivity 01/02/2020 Visit for annual health examination (Adult) 07/22 Hypothyroid 08/03/2019 Viral hepatitis C 02/20/2018 Overview (08/03/2019): New diagnosis of HCV on 02/18/18 in setting of h/o IVDU. GI consult as above for transaminitis. HCV PCR pending. Cluster B personality disorder 09/25/2012 Overview (08/03/2019): Overview: Personality disorder Depressive disorder 04/13/2012 Overview (08/03/2019): Last Assessment & Plan: Unspecified Depressive Disorder (F 32.9) (secondary diagnoses: Stimulant use disorder, severe, in partial remission Opioid use disorder, severe, in remission) This is a 27 year-old woman with a history of significant substance use and affective symptoms who was admitted for transaminitis. At this time, it is difficult to assign a specific affective disorder diagnosis given significant drug use overlaying her depressive/manic symptoms. It would appear based on history that patient has never had a sustained period of mood elevation/mood depression meeting full criteria for either a Major Depressive Disorder or Bipolar Affective Disorder. However, patient has also never been truly sober for more than 6 months since the onset of substance use at age 19. Furthermore, her lifelong story of emotional dysregulation, volatile relationships, chronic sense of emptiness, fear of abandonment and impulsivity was concerning for Borderline Personality Disorder, which could contribute to the affective symptoms. Given these complicating factors, would assign Unspecified Depressive Disorder, with differentials between substance- induced mood disorder, Major Depressive Disorder, and cluster B personality disorder. Delirium is lower at the differential given no recent history of waxing/waning mental status and 30/30 MMSE. Mental status exam today was otherwise reassuring; there was no objective evidence of psychomotor retardation, dysthymia, or suicidal ideations. Even more encouraging is that patient demonstrates strong sense of responsibility for her unborn child and good future planning. At this time, patient is chronically at low/moderate risk of harming herself due to impulsivity, history of multiple substance use disorders, unstable social situations, and ongoing medical condition. She is protected by good future planning, sense of obligation, access to healthcare, and supportive family. Recommendations: - please continue excellent medical care - based on today's assessment, it would appear that patient's depressive symptoms are reasonably controlled. Given up-trending liver enzymes, will advise to stop duloxetine 20mg right now as the risks outweigh the benefits at this point - once her liver function normalizes, please start a trial of bupropion (Wellbutrin XL): 150mg PO qAM for seven days, then 300mg PO qAM The benefits/risks/side effects were discussed with the patient. We have chosen this agent as patient has failed the first-line agent (SNRI) and has had possibly unwanted side effect in the past with SSRI (possibly paroxetine). Further questionings revealed that patient has had no significant history of seizure or brain injury, which are contraindications to this medication. - please make sure patient is set up to follow a psychiatrist through the [facility] service, if they haven't already been following Psychiatry will follow peripherally. Please call for any questions or concern. Neuropathy Overview (12/04/2019): legs and arms Estimated Date of Delivery Comme nts Yes 06/21/2024 Resolved Problems Problem Noted Date Diagnosed Date Resolved Date Injury of right wrist 08/03/20192019 Finger injury, right, initial encounter 08/03/2019 12/04/2019 Immunizations Immunization Administration Dates Next Due Covid-19, Mrna, Lnp-s, PF, 1 00 mcg/0.5 mL Dose (Moderna) 07/01/2020,06/03/2020 Influenza Vaccine 03/02/2018 Influenza Vaccine greater than 3 yrs 10/15/2020 Influenza Vaccine, Quadrivalent, PF 11/09/2021 Influenza, Recombinant, Quadrivalent,injectable, Pf 12/07/2019 TDAP Vaccine 03/02/2018 Family History Medical History Relation Name Comments No Known Problems Father No Known Problems Maternal Grandfather No Known Problems Maternal Grandmother Cancer Mother Shameka Hoffmann No Known Problems Paternal Grandfather No Known Problems Paternal Grandmother Relation Name Status Comments Father Maternal Grandfather Maternal Grandmother Mother Shameka Hoffmann Alive Paternal Grandfather Paternal Grandmother Social History Tobacco Use Types Packs/Day Years Used Date Smoking Tobacco: Never Smokeless Tobacco: Never Tobacco Cessation:Counseling Given: No Alcohol Use Standard Drinks/Week Comments No 0 (1 standard drink = 0.6 oz pur e alcohol) Quit in 2018 [facility] Utilities Answer Date Recorded In the past 12 months has [email or web address], gas, oil, or water company threatened to shut off services in your home? No 04/20/2023 Social Connection and Isolat ion Panel [NHANES] Answer Date Recorded In a typical week, how many times do you talk on the phone with family, friends, or neighbors? More than three times a week 04/20/2023 How often do you get togethe r with friends or relatives? Once a week 04/20/2023 How often do you attend [facility] or adventist services? 1 to 4 times per year 04/20/2023 Do you belong to any clubs o r organizations such as congregational groups, unions, fraternal or athletic groups, or school groups? No 04/20/2023 How often do you attend meet ings of the clubs or organizations you belong to? Never 04/20/2023 Are you , , di vorced, , never , or living with a partner? Living with partner 04/20/2023 AUDIT-C Answer Date Recorded Q1: How often do you have a drink containing alcohol? Never 04/20/2023 Q2: How many drinks containi ng alcohol do you have on a typical day when you are drinking? Patient does not drink Q3: How often do you have si x or more drinks on one occasion? Never 04/20/2023 Overall Financial Resource Strain (CARDIA) Answe r Date Recorded How hard is it for you to pa y for the very basics like food, housing, medical care, and heating? Not very hard 04/20/2023 PHQ-2 Answer Date Recorded Total Score - Questions 1-9 10 07/22 [facility] - Occupational Stress Questionnaire Answer Date Recorded Do you feel stress - tense, restless, nervous, or anxious, or unable to sleep at night because your mind is troubled all the time - these days? To some extent 04/20/2023 Exercise Vital Sign Answer Date Recorde d On average, how many days pe r week do you engage in moderate to strenuous exercise (like a brisk walk)? 2 days 04/20/2023 On average, how many minutes do you engage in exercise at this level? 20 min 04/20/2023 Hunger Vital Sign Answer Date Recorded Within the past 12 months, y ou worried that your food would run out before you got the money to buy more. Never true 04/20/19 24 Within the past 12 months, t he food you bought just didn't last and you didn't have money to get more. Never true 04/20/2023 PRAPARE - Transportation Answer Date Re corded In the past 12 months, has l ack of transportation kept you from medical appointments or from getting medications? No 03/25 In the past 12 months, has l ack of transportation kept you from meetings, work, or from getting things needed for daily living? No 04/20/2023 Housing Stability Vital Sign Answer Elias e Recorded In the last 12 months, was t here a time when you were not able to pay the mortgage or rent on time? No 04/20/2023 In the last 12 months, how many places have you lived? 1 04/20/2023 In the last 12 months, was t here a time when you did not have a steady place to sleep or slept in a residential (including now)? No 04/20/2023 Education Answer Date Recorded What is the highest level of school you have completed or the highest degree you have received? 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 on file Not on file Last Filed Vital Signs Vital Sign Reading Time Taken Comments Blood Pressure 116/62 12/02/2023 9:24 AM CDT Pulse 93 12/02/2023 9:24 AM CDT Temperature 36.3 C (97.4 F) 12/02/2023 9:24 AM CDT Respiratory Rate 16 12/02/2023 9:24 AM CDT Oxygen Saturation 99% 12/02/2023 9:24 AM CDT Inhaled Oxygen Concentration - - Weight 101.6 kg (224 lb) 12/02/2023 9:24 AM CDT Height 170.2 cm (5' 7 ) 12/02/2023 9:24 AM CDT Body Mass Index 35.08 12/02/2023 9:24 AM CDT Plan of Treatment Health Maintenance Due Date Last Done Comments Hepatitis B Immunization (1 of 3 - 19+ 3-dose series) 12/04/2011 Pap Smear 10/10/2021 10/10/2018, 10/10/2018 Cervical Cancer Screening (CCS) 2022 HPV/Cotest 2022 Influenza Immunization (#1) 10/23/202310/22, 10/15/2020, 12/07/2019, Additional history exists Td Immunization Every 10 Years (Adults With 1 Tdap) 03/02/2028 03/02/2018 SARS-COV-2 Immunization Discontinued 04/30/19 22, 07/01/2020, 06/03/2020 Meningococcal Immunization (ACWY) Aged Out No longer eligible based on patient's age to complete this topic Pneumococcal Immunization Combined Aged Out No longer eligible based on patient's age to complete this topic Respiratory Syncytial Virus (RSV) Immunization (Adult) (No Doses Required) Completed Rotavirus Immunization Aged Out No lo nger eligible based on patient's age to complete this topic Procedures Procedure Name Priority Date/Time Associated Diagnosis Comments PATHOLOGY CYTOLOGY RECORD MAKER Routine 10/10/2018 from Last 3 Months or Most Recently Relevant to Health Maintenance Results * PATHOLOGY CYTOLOGY RECORD MAKER (10/10/2018) Other Alissa Schultz MD PATHOLOGY/CYTOLOGY ORDER DENNIS Final Result from Last 3 Months or Most Recently Relevant to Health [place] [address] [place] [address] [facility] Care Teams Rn Acute Relationship Specialty Start Date End Date Rohit Hodgson, COACH BUILDER, AVIATION SAFETY EQUIPMENT TECHNICIAN [address] [place] [id number] PCP - General Advanced Practice Nurse 10/14/23
--- OUTSIDE RECORDS SUMMARY | 2024-04-02 15:34 | XMS_ITS | Encounter Summary ---
Author Organization [facility] Address [address] 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 Requested Prescriptions Pending Prescriptions Disp Refills pregabalin (LYRICA) 100 MG Capsule [Pharmacy Med Name: PREGABALIN 100MG CAPSULES] 90 Capsule Sig: TAKE 1 CAPSULE BY MOUTH THREE TIMES DAILY Not Delegated - Anticonvulsants Excluding Benzodiazepines Protocol Failed - 09/30/2021 1:24 PM Failed - This refill cannot be delegated Passed - Visit with relevant provider in past 12 months or upcoming 90 days Recent Visits Date Type Provider Dept 04/21/21 Office Visit Enrrique Ordonez MD [facility] 03/03/21 Telemedicine Enrrique Ordonez MD [facility] 12/10/20 Office Visit Enrrique Ordonez MD [facility] [place] Showing recent visits within past 365 [...] 19 12/21/2022 12/21/2022 12/31/2022 12:1 6 AM RECREATION THERAPY AIDES TEACHER Assessment Noted Time PHQ-9 Depression Total Score: 10 020 9:19 AM CDT documented as of this encounter Care Teams Manager Clinical Research Relationship Specialty Start Date End Date Enrrique Ordonez MD PCP - General Family Medicine 08/03/19 10/12/23 Rohit Hodgson APRN, COMMERCIAL CARPENTER [address] [place] [address] [address] PCP - General Advanced Practice Nurse 10/14/23 documented as of this encounter
--- OUTSIDE RECORDS SUMMARY | 2024-04-02 15:34 | XMS_ITS | Encounter Summary ---
Author Organization [facility] Address [address] [place] [address] Phone Care Team Providers Care Goodwill Representative Name Role Phone Enrrique Ordonez MD Primary Care Provider [phone] Rohit Hodgson APRN, REALTY LOAN SPECIALIST Primary Care Pr ovider Reason for Visit * Reason Comments Medication Refill Encounter Details Date Type Department Care Team (Late st Contact Info) Description 12/21/2022 Refill 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 No / Unsure 12/21/2022 7:00 AM CDT documented as of this encounter Plan of Treatment Not on file documented as of this encounter Visit Diagnoses Diagnosis Viral upper respiratory illness Acute upper respiratory infections of unspecified site documented in this encounter Additional Health Concerns Infection Onset Date Last Indicated Resolved Time COVID - 19 12/21/2022 12/21/2022 12/31/2022 12:1 6 AM APARTMENT MAINTENANCE SUPERVISOR Assessment Noted Time PHQ-9 Depression Total Score: 10 020 9:19 AM CDT documented as of this encounter Care Teams Goodwill Representative Relationship Specialty Start Date End Date Enrrique Ordonez MD PCP - General Family Medicine 08/03/19 10/12/23 Rohit Hodgson APRN, REALTY LOAN SPECIALIST #[address] [address] PCP - General Advanced Practice Nurse 10/14/23 documented as of this encounter
--- OUTSIDE RECORDS SUMMARY | 2024-04-02 15:34 | XMS_ITS | Encounter Summary ---
Author Organization [facility] Address [address] [place] [address] Phone Care Team Providers Care Ground Host/Hostess Name Role Phone Enrrique Ordonez MD Primary Care Provider [phone] Rohit Hodgson APRN, CNP Primary Care Pr ovider Reason for Visit * Reason Comments Medication Refill Encounter Details Date Type Department Care Team (Late st Contact Info) Description 04/10/2022 Refill [facility] - [facility] [address] [place] [id number] Enrrique Ordonez MD [address] [place] [address] Medication Refill Social History Tobacco Use Types [...] have received? 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 Not on file Not on file documented as of this encounter Plan of Treatment Not on file documented as of this encounter Visit Diagnoses Diagnosis Neuropathy Mononeuritis of unspecified site documented in this encounter Additional Health Concerns Infection Onset Date Last Indicated Resolved Time COVID - 19 12/21/2022 12/21/2022 12/31/2022 12:1 6 AM FLORAL DEPARTMENT SPECIALIST Assessment Noted Time PHQ-9 Depression Total Score: 10 020 9:19 AM CDT documented as of this encounter Care Teams Ground Host/Hostess Relationship Specialty Start Date End Date Enrrique Ordonez MD PCP - General Family Medicine 08/03/19 10/12/23 Rohit Hodgson, HEDGE FUND ACCOUNTANT, PARACHUTE CROWN SEWER #[address] [address] PCP - General Advanced Practice Nurse 10/14/23 documented as of this encounter
--- OUTSIDE RECORDS SUMMARY | 2024-04-02 15:34 | XMS_ITS | Encounter Summary ---
Author Organization [facility] Address [address] 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 No / Unsure 11/09/2021 1:12 PM CDT documented as of this encounter Miscellaneous Notes * Telephone Encounter - Jenni Crawford RN - 2021 7:36 AM CDT Name from pharmacy: PREGABALIN 100MG CAPSULES Will file in chart as: pregabalin (LYRICA) 100 MG Capsule The original prescription was reordered on 12/02/2021 by Enrrique Ordonez MD. * Telephone Encounter - Jenni Crawford RN - 12/02/2021 11:59 AM CDT duplicate documented in this encounter Plan of Treatment Not on file documented as of this encounter Visit Diagnoses Diagnosis Neuropathy Mononeuritis of unspecified site documented in this encounter Additional Health Concerns Infection Onset Date Last Indicated Resolved Time COVID - 19 12/21/2022 12/21/2022 12/31/2022 12:1 6 AM PEDIATRIC CARDIOLOGIST Assessment Noted Time PHQ-9 Depression Total Score: 10 020 9:19 AM CDT documented as of this encounter Care Teams Process Improvement Engineer Relationship Specialty Start Date End Date Enrrique Ordonez MD PCP - General Family Medicine 08/03/19 10/12/23 Rohit Hodgson APRN, FACILITIES MANAGER #[address] [address] PCP - General Advanced Practice Nurse 10/14/23 documented as of this encounter
--- OUTSIDE RECORDS SUMMARY | 2024-04-02 15:34 | XMS_ITS | Encounter Summary ---
Author Organization [facility] Address [address] 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 Unsure of cause muscle pain goes up to right calf ASSESSMENT: Symptom Description / Location: right foot pain sharp pain and tender to touch Pain (0-10): 10 upon rising 8 later with activity Temp: no Treatment / Response: lyrica 100 three times daily and Venlafaxine 75 mg daily ibuprofen LMP / / : no RECOMMENDATION: See care advice and disposition for Guideline Patient states she works two jobs and pain in foot is interfering with work Patient is in severe pain and would not be able to get off for two weeks and she lives far away Instructed according to care advice Request something for pain or imaging Will send a picture to [employer] Please advise? Pharm/meds/allergies/address verified First positive answer recorded, all responses to prior questions were negative. If symptoms increase, change or if new symptoms develop, call your HCP or call back. Recommendations were based on caller information and is not a diagnosis. Verified and reviewed all triage information with caller. Reason for Disposition ??? SEVERE pain (e.g., excruciating, unable to do any normal activities) Protocols used: FOOT PAIN-A-OH documented in this encounter Plan of Treatment Not on file documented as of this encounter Visit Diagnoses Not on filedocumented in this encounter Additional Health Concerns Infection Onset Date Last Indicated Resolved Time COVID - 19 12/21/2022 12/21/2022 12/31/2022 12:1 6 AM MACHINE CEMENTER AND FOLDER Assessment Noted Time PHQ-9 Depression Total Score: 10 020 9:19 AM CDT documented as of this encounter Care Teams Nascar Driver Relationship Specialty Start Date End Date Enrrique Ordonez MD PCP - General Family Medicine 08/03/19 10/12/23 Rohit Hodgson, BUCKLE ATTACHING MACHINE OPERATOR, INVASIVE CARDIOLOGIST [address] [place] [address] PCP - General Advanced Practice Nurse 10/14/23 documented as of this encounter
--- OUTSIDE RECORDS SUMMARY | 2024-04-02 15:34 | XMS_ITS | Encounter Summary ---
Author Organization [facility] Address [address] [place] [address] Phone Care Team Providers Care Tool Drawing Checker Name Role Phone Ernrique Ordonez MD Primary Care Provider [phone] Rohit Hodgson APRN, CNP Primary Care Pr ovider Reason for Visit * Reason Comments Medication Refill Encounter Details Date Type Department Care Team (Late st Contact Info) Description 03/28/[address] 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 No / Unsure 03/20/2021 10:09 AM INSIDE SALES SUPERVISOR documented as of this encounter Miscellaneous Notes * Telephone Encounter - Jenni Crawford RN - 03/30/2021 9:42 AM CST PDMP 02/24/21 Medication failed the protocol, provider to review and approve the medication order if appropriate. Requested Prescriptions Pending Prescriptions Disp Refills pregabalin (LYRICA) 100 MG Capsule [Pharmacy Med Name: PREGABALIN 100MG CAPSULES] 90 Capsule 2 Sig: TAKE 1 CAPSULE BY MOUTH THREE TIMES DAILY Not Delegated - Anticonvulsants Excluding Benzodiazepines Protocol Failed - 03/30/2021 9:42 AM Failed - This refill cannot be delegated Passed - Visit with relevant provider in past 12 months or upcoming 90 days Recent Visits Date Type Provider Dept 03/03/21 Appointment Enrrique Ordonez MD [facility] 12/10/20 Office Visit Enrrique Ordonez MD [facility] 07/01/20 Telemedicine Enrrique Ordonez MD [facility] Showing recent visits within past 365 days and meeting all other requirements Future Appointments No visits were found meeting these conditions. Showing future appointments within next 90 days and meeting all other requirements DE SALES SUPERVISOR documented in this encounter Plan of Treatment Not on file documented as of this encounter Visit Diagnoses Diagnosis Neuropathy Mononeuritis of unspecified site documented in this encounter Additional Health Concerns Infection Onset Date Last Indicated Resolved Time COVID - 19 12/21/2022 12/21/2022 12/31/2022 12:1 6 AM INSIDE SALES SUPERVISOR Assessment Noted Time PHQ-9 Depression Total Score: 10 020 9:19 AM CDT documented as of this encounter Care Teams Tool Drawing Checker Relationship Specialty Start Date End Date Enrrique Ordonez MD PCP - General Family Medicine 08/03/19 10/12/23 Rohit Hodgson APRN, 3D MODELER #[address] [address] PCP - General Advanced Practice Nurse 10/14/23 documented as of this encounter
--- OUTSIDE RECORDS SUMMARY | 2024-04-02 15:34 | XMS_ITS | Encounter Summary ---
Author Organization [facility] Address [address] 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 on file Not on file documented as of this encounter Miscellaneous Notes * Telephone Encounter - Mita Bates RN - 06/14/2022 9:43 AM CDT Duplicate documented in this encounter Plan of Treatment Not on file documented as of this encounter Visit Diagnoses Diagnosis Insomnia, unspecified type documented in this encounter Additional Health Concerns Infection Onset Date Last Indicated Resolved Time COVID - 19 12/21/2022 12/21/2022 12/31/2022 12:1 6 AM PRODUCTION LINE WELDER Assessment Noted Time PHQ-9 Depression Total Score: 10 020 9:19 AM CDT documented as of this encounter Care Teams Railcar Mechanic Relationship Specialty Start Date End Date Enrrique Ordonez MD PCP - General Family Medicine 08/03/19 10/12/23 Rohit Hodgson, ESTABLISHMENT GUIDE, CATEGORY DIRECTOR #[address] [address] PCP - General Advanced Practice Nurse 10/14/23 documented as of this encounter
--- OUTSIDE RECORDS SUMMARY | 2024-04-02 15:34 | XMS_ITS | Encounter Summary ---
Author Organization [facility] Address [address] [place] [address] Phone Care Team Providers Care Electrical Electronics Engineer Name Role Phone Enrrique Ordonez MD Primary Care Provider [phone] Rohit Hodgson APRN, CNP Primary Care Pr ovider Reason for Visit * Reason Onset Date Comments Medication Refill 10/23/2019 Encounter Details Date Type Department Care Team (Late st Contact Info) Description 10/23/2019 Refill [facility] [address] [place] [address] Enrrique Ordonez MD [address] [place] [address] Medication Refill Social History Tobacco Use Types Packs/Day Years Used Date Smoking Tobacco: Never Cigarettes Smokeless Tobacco: Never Alcohol Use Standard Drinks/Week Comments No 0 (1 standard drink = 0.6 oz pur e alcohol) Quit in 2018 PHQ-2 Answer Date Recorded Total Score - Questions 1-9 10 07/22 Comments No Sex and Gender Information Value Date Recorded Sex Assigned at Not on file Legal Sex Female 7:04 AM CDT Gender Identity Female 11/18/2022 7:00 PM CDT Sexual Orientation Straight 11/18/2022 7: 00 PM CDT 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 No / Unsure 10/16/2019 2:55 PM CDT documented as of this encounter Miscellaneous Notes * Telephone Encounter - Linda Kendrick RN - 10/23/2019 6:11 PM CDT Refill pended * Telephone Encounter - Pratima Bentley RN - 10/23/2019 2:05 PM CDT NEW PHARMACY Received: [x]FAX []TELEPHONE CALL []MYCHART from: [x]PHARMACY []PATIENT/OTHER regarding medication management. Medication name and dose: gabapentin 400mg caps Quantity: (30 day, 90 day, 3 monthly scripts) 90 days Pharmacy preference for this medication: [facility] Outcome: [x]Medication pended, routed to surescripts []Medication refused []Informed caller of refills at pharmacy []Additional message to medication management RN []Verbal authorization for written order to pharmacy []Additional message to provider []Verified medication with pharmacy SUKHDEV Padilla RN Nurse Triage documented in this encounter Plan of Treatment Not on file documented as of this encounter Visit Diagnoses Not on filedocumented in this encounter Additional Health Concerns Infection Onset Date Last Indicated Resolved Time COVID - 19 03/10/2020 03/10/2020 03/13/2020 10:0 5 PM PUBLICATION EDITOR COVID - 19 09/23/2020 09/23/2020 09/24/2020 9:09 AM CDT COVID - 19 Confirmed 03/07/2021 03/07/2021 022 12:16 AM PUBLICATION EDITOR COVID - 19 12/21/2022 12/21/2022 12/31/2022 12:1 6 AM PUBLICATION EDITOR Assessment Noted Time PHQ-9 Depression Total Score: 10 020 9:19 AM CDT documented as of this encounter Care Teams Electrical Electronics Engineer Relationship Specialty Start Date End Date Enrrique Ordonez MD PCP - General Family Medicine 08/03/19 10/12/23 Rohit Hodgson, CARLINE, STRINGED INSTRUMENT TUNER [address] [place] [address] PCP - General Advanced Practice Nurse 10/14/23 documented as of this encounter
--- OUTSIDE RECORDS SUMMARY | 2024-04-02 15:34 | XMS_ITS | Encounter Summary ---
Author Organization [facility] Address [address] 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 * Telephone Encounter - Jenni Crawford RN - 08/31/2021 2:34 PM CDT Duplicate pended to PCP documented in this encounter Plan of Treatment Not on file documented as of this encounter Visit Diagnoses Diagnosis Neuropathy Mononeuritis of unspecified site documented in this encounter Additional Health Concerns Infection Onset Date Last Indicated Resolved Time COVID - 19 12/21/2022 12/21/2022 12/31/2022 12:1 6 AM [employer] SALES CONSULTANT Assessment Noted Time PHQ-9 Depression Total Score: 10 08/02/ 020 9:19 AM CDT documented as of this encounter Care Teams Medical Office Receptionist Relationship Specialty Start Date End Date Enrrique Ordonez MD PCP - General Family Medicine 08/03/19 10/12/23 Rohit Hodgson APRN, ELECTRONIC DEVICE REPAIRER #[address] [address] PCP - General Advanced Practice Nurse 10/14/23 documented as of this encounter
[2024-04-02 19:00] LABS: Hematocrit 33.7 % (37.0-47.0); Hemoglobin 11.3 g/dL (12.0-15.0); Mean Corpuscular HGB Conc 33.5 g/dl (32-36); Mean Corpuscular Hemoglobin 30.5 pg (26-34); Mean Corpuscular Volume 90.8 fl (80-100); Platelet Count Result 271 k/mm3 (150-375); Red Blood Count 3.71 M/mm3 (4.2-5.4); Red Cell Distribution Width 12.6 % (11.5-14.5); White Blood Count 11.6 K/mm3 (4.5-10.0)
[2024-04-02 19:49] LABS: HIV 1/2 Ab P24 Ag Result Negative (Negative)
[2024-04-03 13:32] LABS: Rapid Plasma Reagin Non-Reactive (NonReactive)
[2024-04-06 15:53] LABS: Chenodeoxycholic Acid <0.5 umol/L (< OR = 3.9); Cholic Acid <0.5 umol/L (< OR = 2.8); Deoxycholic Acid <0.5 umol/L (< OR = 2.3); Total Bile Acids <1.5 umol/L (< OR = 8.3)
== END 2024-04-02 15:26 | disposition home or self-care (01) ==
PROVIDERS: Visit Provider Obstetrics & Gynecology
DX: Z34.90 Encounter for supervision of normal pregnancy, unspecified, unspecified trimester (principal); L29.9 Pruritus, unspecified; R35.0 Frequency of micturition
CPT/HCPCS: 36415; 82542; 85027; 86592; 86703; 87086; G0432

== ENCOUNTER 2024-04-03 11:16 | Emergency (ER) | payer BC, SELFPAY ==
[2024-04-03 11:27] VITALS: BP 150/76; PULSE 115; RESP 18; TEMP 36.1; O2SAT 100
--- OUTSIDE RECORDS SUMMARY | 2024-04-03 12:39 | XMS_ITS | Encounter Summary ---
Author Organization [facility] Address [address] [place] [address] Phone Care Team Providers Care Branch Examiner Name Role Phone Enrrique Ordonez MD Primary Care Provider [phone] Rohit Hodgson APRN, CNP Primary Care Pr ovider Reason for Visit * Reason Onset Date Comments Medication Refill 10/23/2019 Encounter Details Date Type Department Care Team (Late st Contact Info) Description 10/23/[address] 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 on file Not [...] days Pharm[facility] preference [facility] medication[facility] [place] Outcome: [x]Medication pended, routed to surescripts []Medication [...] 19 03/10/2020 03/10/2020 03/13/2020 10:0 5 PM RHEOSTAT ASSEMBLER COVID - 19 09/23/2020 09/23/2020 09/24/2020 9:09 AM CDT COVID - 19 Confirmed 03/07/2021 03/07/2021 022 12:16 AM RHEOSTAT ASSEMBLER COVID - 19 12/21/2022 12/21/2022 12/31/2022 12:1 6 AM RHEOSTAT ASSEMBLER Assessment Noted Time PHQ-9 Depression Total Score: 10 020 9:19 AM CDT documented as of this encounter Care Teams Branch Examiner Relationship Specialty Start Date End Date Enrrique Ordonez MD PCP - General Family Medicine 08/03/19 10/12/23 Rohit Hodgson, CARLINE, CHAIN TENDER [address] [place] [address] PCP - General Advanced Practice Nurse 10/14/23 documented as of this encounter
--- OUTSIDE RECORDS SUMMARY | 2024-04-03 12:39 | XMS_ITS | Encounter Summary ---
Author Organization [facility] Address [address] 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
--- OUTSIDE RECORDS SUMMARY | 2024-04-03 12:39 | XMS_ITS | Clinical Summary ---
Author Organization [facility] Address [address] [place] [address] Phone Care Team Providers Care Supervisor Research Kennel Name Role Phone Rohit Hodgson APRN, CNP [...] to follow a psychiatrist through the [facility] service, if they haven't already been [...] oz pur e alcohol) Quit in 2018 [facility] Utilities Answer Date Recorded In the past 12 months has [employer], gas, oil, or water company threatened to [...] week 04/20/2023 How often do you attend [facility] or [facility] services? 1 to 4 times per year 04/20/2023 Do you belong to any clubs o r organizations such as rastafari groups, unions, fraternal or athletic groups, or [...] Total Score - Questions 1-9 10 07/22 [facility] - Occupational [...] place to sleep or slept in a mcc (including now)? 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 on file Not [...] Priority Date/Time Associated Diagnosis Comments PATHOLOGY CYTOLOGY QUALITY ASSURANCE DIRECTOR Routine 10/10/2018 from Last 3 Months or Most Recently Relevant to Health Maintenance Results * PATHOLOGY CYTOLOGY QUALITY ASSURANCE DIRECTOR (10/10/2018) Other Alissa Schultz MD PATHOLOGY/CYTOLOGY ORDER DENNIS Final Result from Last 3 Months or Most Recently Relevant to Health Maintenance [place] [address] [facility] Care Teams Supervisor Research Kennel Relationship Specialty Start Date End Date Rohit Hodgson, BOAT TESTER, POLYETHYLENE COMBINER [address] [place] [id number] PCP - General Advanced Practice Nurse 10/14/23
--- OUTSIDE RECORDS SUMMARY | 2024-04-03 12:39 | XMS_ITS | Encounter Summary ---
Author Organization [facility] Address [address] 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 [place] Showing recent visits within past 365 [...] 19 12/21/2022 12/21/2022 12/31/2022 12:1 6 AM CHARGE WEIGHER Assessment Noted Time PHQ-9 Depression Total Score: 10 020 9:19 AM CDT documented as of this encounter Care Teams Construction Management Instructor Relationship Specialty Start Date End Date Enrrique Ordonez MD PCP - General Family Medicine 08/03/19 10/12/23 Rohit Hodgson APRN, BREAD SLICER MACHINE [address] [place] [address] PCP - General Advanced Practice Nurse 10/14/23 documented as of this encounter
--- OUTSIDE RECORDS SUMMARY | 2024-04-03 12:39 | XMS_ITS | Encounter Summary ---
Author Organization [facility] Address [address] 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
--- OUTSIDE RECORDS SUMMARY | 2024-04-03 12:39 | XMS_ITS | Encounter Summary ---
Author Organization [facility] Address [address] 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 on file Not on file documented as of this encounter Plan of Treatment Not on file documented as of this encounter Visit Diagnoses Diagnosis Neuropathy Mononeuritis of unspecified site documented in this encounter Additional Health Concerns Infection Onset Date Last Indicated Resolved Time COVID - 19 12/21/2022 12/21/2022 12/31/2022 12:1 6 AM RISK CONTROL ANALYST Assessment Noted Time PHQ-9 Depression Total Score: 10 020 9:19 AM CDT documented as of this encounter Care Teams Tree Cutter Relationship Specialty Start Date End Date Enrrique Ordonez MD PCP - General Family Medicine 08/03/19 10/12/23 Rohit Hodgson, SPREADER OPERATOR AUTOMATIC, ROLLER STAKER #[address] [address] PCP - General Advanced Practice Nurse 10/14/23 documented as of this encounter
--- OUTSIDE RECORDS SUMMARY | 2024-04-03 12:39 | XMS_ITS | Encounter Summary ---
Author Organization [facility] Address [address] 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
--- OUTSIDE RECORDS SUMMARY | 2024-04-03 12:39 | XMS_ITS | Encounter Summary ---
Author Organization [facility] Address [address] 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 No / Unsure 03/20/2021 10:09 AM SCHOOL AGE PROGRAM ASSOCIATE documented as of this encounter Miscellaneous Notes [...] 90 days and meeting all other requirements OL AGE PROGRAM ASSOCIATE documented in this encounter Plan of Treatment Not on file documented as of this encounter Visit Diagnoses Diagnosis Neuropathy Mononeuritis of unspecified site documented in this encounter Additional Health Concerns Infection Onset Date Last Indicated Resolved Time COVID - 19 12/21/2022 12/21/2022 12/31/2022 12:1 6 AM SCHOOL AGE PROGRAM ASSOCIATE Assessment Noted Time PHQ-9 Depression Total Score: 10 020 9:19 AM CDT documented as of this encounter Care Teams Back Up Scan Coordinator Relationship Specialty Start Date End Date Enrrique Ordonez MD PCP - General Family Medicine 08/03/19 10/12/23 Rohit Hodgson APRN, CONFIGURATION SPECIALIST #[address] [address] PCP - General Advanced Practice Nurse 10/14/23 documented as of this encounter
--- OUTSIDE RECORDS SUMMARY | 2024-04-03 12:39 | XMS_ITS | Encounter Summary ---
Author Organization [facility] Address [address] 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
--- OUTSIDE RECORDS SUMMARY | 2024-04-03 12:39 | XMS_ITS | Encounter Summary ---
Author Organization [facility] Address [address] 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 Not [...] [facility] 07/01/20 Telemedicine [facility] Showing recent visits within past 365 days [...] 19 12/21/2022 12/21/2022 12/31/2022 12:1 6 AM CARBONATION EQUIPMENT TENDER Assessment Noted Time PHQ-9 Depression Total Score: 10 020 9:19 AM CDT documented as of this encounter Care Teams Skiving Machine Operator Relationship Specialty Start Date End Date Enrrique Ordonez MD PCP - General Family Medicine 08/03/19 10/12/23 Rohit Hodgson APRN, LOSS PREVENTION SUPERVISOR [address] [place] [address] PCP - General Advanced Practice Nurse 10/14/23 documented as of this encounter
--- OUTSIDE RECORDS SUMMARY | 2024-04-03 12:39 | XMS_ITS | Encounter Summary ---
Author Organization [facility] Address [address] [place] [address] Phone Care Team Providers Care Mac Artist Name Role Phone Enrrique Ordonez MD Primary Care Provider [phone] Rohit Hodgson APRN, CNP Primary Care Pr ovider Reason for Visit * Reason Onset Date Comments Foot Pain 05/29/2021 Encounter Details Date Type Department Care Team (Late st Contact Info) Description 05/29/2021 Nurse Triage [facility] Medical Group - Family 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 Pharm/meds/allergies/address verified First positive answer [...] 12/21/2022 12/21/2022 12/31/2022 12:1 6 AM SCHOOL DIRECTOR Assessment Noted Time PHQ-9 Depression Total Score: 10 020 9:19 AM CDT documented as of this encounter Care Teams Mac Artist Relationship Specialty Start Date End Date Enrrique Ordonez MD PCP - General Family Medicine 08/03/19 10/12/23 Rohit Hodgson, NUTRITION EDUCATOR, SET UP OPERATOR [address] [place] [address] PCP - General Advanced Practice Nurse 10/14/23 documented as of this encounter
--- OUTSIDE RECORDS SUMMARY | 2024-04-03 12:39 | XMS_ITS | Encounter Summary ---
Author Organization [facility] Address [address] [place] [address] Phone Care Team Providers Care Pathology Laboratory Technologist Name Role Phone Enrrique Ordonez MD Primary Care Provider [phone] Rohit Hodgson APRN, SENIOR PARALEGAL Primary Care Pr ovider Reason for Visit * Reason Comments Medication Refill Encounter Details Date Type Department Care Team (Late st Contact Info) Description 12/21/2022 Refill 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
--- OUTSIDE RECORDS SUMMARY | 2024-04-03 12:39 | XMS_ITS | Encounter Summary ---
Author Organization [facility] Address [address] 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 No / Unsure 04/13/2021 9:52 AM FROZEN FOOD DEPARTMENT MANAGER documented as of this encounter Miscellaneous [...] 1. Testing is recommended- go online to [employer] for testing locations, utilize [employer] toschedule testing, or use the [employer] tana on your smart phone to locate [...] guidance and will make changes as necessary EN FOOD DEPARTMENT MANAGER documented in this encounter Plan of Treatment Not on file documented as of this encounter Visit Diagnoses Not on filedocumented in this encounter Additional Health Concerns Infection Onset Date Last Indicated Resolved Time COVID - 19 12/21/2022 12/21/2022 12/31/2022 12:1 6 AM FROZEN FOOD DEPARTMENT MANAGER Assessment Noted Time PHQ-9 Depression Total Score: 10 020 9:19 AM CDT documented as of this encounter Care Teams Infant Toddler Lead Teacher Relationship Specialty Start Date End Date Enrrique Ordonez MD PCP - General Family Medicine 08/03/19 10/12/23 Rohit Hodgson, FILTER CLOTH MAKER, ENVIRONMENTAL CONTROL ADMINISTRATOR #[address] [address] PCP - General Advanced Practice Nurse 10/14/23 documented as of this encounter
--- OUTSIDE RECORDS SUMMARY | 2024-04-03 12:39 | XMS_ITS | Encounter Summary ---
Author Organization [facility] Address [address] [place] [address] Phone Care Team Providers Care Water Jet Loom Fixer Name Role Phone Enrrique Ordonez MD Primary Care Provider [phone] Rohit Hodgson APRN LIGHT OIL OPERATOR Primary Care Pr ovider Reason for Visit * Reason Onset Date Comments Medication Refill Medication Refill 10/28/2020 Medication Refill 10/30/2020 Encounter Details Date Type Department Care Team (Late st Contact Info) Description 10/24/2020 Refill [facility] Medical Group - Family Medicine [facility] #2 [place] [address] Enrrique Ordonez MD [address] [place] [address] Medication Refill; Medication Refill; Medication Refill Social [...] 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 Dose was increased to 100 mg tabs documented in this encounter Plan of Treatment Not on file documented as of this encounter Visit Diagnoses Diagnosis Neuropathy Mononeuritis of unspecified site documented in this encounter Additional Health Concerns Infection Onset Date Last Indicated Resolved Time COVID - 19 Confirmed 03/07/2021 03/07/2021 022 12:16 AM HOUSE MOVER HELPER COVID - 19 12/21/2022 12/21/2022 12/31/2022 12:1 6 AM HOUSE MOVER HELPER Assessment Noted Time PHQ-9 Depression Total Score: 10 020 9:19 AM CDT documented as of this encounter Care Teams Water Jet Loom Fixer Relationship Specialty Start Date End Date Enrrique Ordonez MD PCP - General Family Medicine 08/03/19 10/12/23 Rohit Hodgson, GRIPPER INSTALLER, LIGHT OIL OPERATOR #[address] [address] PCP - General Advanced Practice Nurse 10/14/23 documented as of this encounter
--- OUTSIDE RECORDS SUMMARY | 2024-04-03 12:39 | XMS_ITS | Encounter Summary ---
Author Organization [facility] Address [address] [place] [address] Phone Care Team Providers Care Used Car Salesperson Name Role Phone Enrrique Ordonez MD Primary Care Provider [phone] Rohit Hodgson APRN, CNP Primary Care Pr ovider Reason for Visit * Reason Comments Medication Refill Encounter Details Date Type Department Care Team (Late st Contact Info) Description 09/30/[address] 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 Not [...] [place] 12/10/20 Office Visit Enrrique Ordonez MD [facility] [place] Showing recent visits within past [...] 19 12/21/2022 12/21/2022 12/31/2022 12:1 6 AM SPECIAL EDUCATION TEACHER Assessment Noted Time PHQ-9 Depression Total Score: 10 020 9:19 AM CDT documented as of this encounter Care Teams Used Car Salesperson Relationship Specialty Start Date End Date Enrrique Ordonez MD PCP - General Family Medicine 08/03/19 10/12/23 Rohit Hodgson APRN, SIGNAL HELPER [address] [place] [address] [address] PCP - General Advanced Practice Nurse 10/14/23 documented as of this encounter
[2024-04-03 14:16] LABS: Influenza A QL RT-PCR Negative (Negative); Influenza B QL RT-PCR Negative (Negative); RSV RNA, RT-PCR Negative (Negative); SARS-CoV-2 RNA PCR Negative (Negative)
--- NOTE | 2024-04-03 14:32 | ED_ITS ---
HPI - Nausea/Vomiting/Diarrhea General Chief complaint: Nausea/Vomiting/Diarrhea <Olivia Valerio PA-C - Last Filed: 04/03/24 15:15> Stated complaint: flulike s/s 29 weeks <Olivia Valerio PA-C - Last Filed: 04/03/24 15:15> Time Seen by Provider: 04/03/24 14:32 <Olivia Valerio PA-C - Last Filed: 04/03/24 15:15> Focused HPI: Patient is a 33-year-old female who presents the ED with report of headache. Patient reports over the past few days, she has been having intermittent HAs, bilateral blurry vision, trouble focusing/concentrating at work. Noted her BP was elevated today. Patient is and currently 29 weeks gestation. Was referred to the ED by her OBGYN, Dr. Delgado. Patient does have Hx of preeclampsia with previous with labor. She does take ASA 81mg daily. Has not taken anything further for pain today. Declined tylenol. Also reports abdominal pain RUQ intermittently for the past 1 week, and diarrhea for past few days. Denies fevers, vaginal bleeding, significant edema in BLE. GENERAL: Well-appearing, obese with BMI of 37.9, and in no acute distress. HEAD: Normocephalic, atraumatic. CHEST: Clear to auscultation. ?No respiratory distress. HEART: Regular rate and rhythm.? ABD: Uterus gravid, nontender. NEURO: ?Alert and oriented x3. Patient screened in triage and initial orders placed.? ?Additional care and disposition to be based upon?diagnostic testing and treatment. <Olivia Valerio PA-C - Last Filed: 04/03/24 15:15> Source: patient <Olivia Valerio PA-C - Last Filed: 04/03/24 15:15> Mode of arrival: ambulatory <Olivia Valerio PA-C - Last Filed: 04/03/24 15:15> Limitations: no limitations <Olivia Valerio PA-C - Last Filed: 04/03/24 15:15> History of Present Illness HPI Narrative: agree with HPI <Shasha Nunn MD - Last Filed: 04/03/24 17:17> Related Data Home medications: Home Medications ?Medication ?Instructions ?Recorded ?Confirmed ?Last Taken ?Type No Home Medications 02/29/24 03/28/24 Unknown History <Olivia Valerio PA-C - Last Filed: 04/03/24 15:15> Allergies/Adverse reactions: Allergies Allergy/AdvReac Type Severity Reaction Status Date / Time No Known Allergies Allergy Mild Verified 04/03/24 11:31 <Olivia Valerio PA-C - Last Filed: 04/03/24 15:15> Review of Systems 2 Review of Systems: All systems reviewed & are unremarkable except as noted in HPI and below <Shasha Nunn MD - Last Filed: 04/03/24 17:17> [facility] Past Medical History Medical History: Medical History (Updated 04/03/24 @ 17:07 by Shasha Nunn MD) Dysuria Itching of both hands Encounter for removal of intrauterine contraceptive device <Olivia Valerio PA-C - Last Filed: 04/03/24 15:15> Social History Social History: Social History Smoking status: Former smoker Tobacco type: e-cigarettes/vaping Alcohol intake: never Substance use: never Do You Feel Safe in your Home?: Yes Lack of Transportation: No Lack of Food: Never True Current Housing: I Have Housing Concerned About Future Housing: No Difficulty Paying Gas/Electric Bills: No Difficulty Paying for Meds: No Currently Unemployed: No Education: Bachelor's Degree Difficulty w/ Childcare or Family Care: No Living arrangements: with family Occupation/Education: occupation Gender identity (if verbalized by the patient): Female <Olivia Valerio PA-C - Last Filed: 04/03/24 15:15> Exam 2 Narrative: EXAMINATION OF ORGAN SYSTEMS/BODY AREAS: Constitutional: Vital signs per nursing GENERAL:[No acute distress, non-toxic appearing.] HEAD: Normal with no signs of head trauma. EYES: EOMI, conjunctiva normal ENT: Hearing grossly intact LUNGS: Nonlabored breathing. HEART: [Regular rate and rhythm] ABD: [Soft], [nontender to palpation], gravid EXT: Normal range of motion SKIN: [No rashes or lesions.] NEURO: [Alert and oriented x 3. No gross focal sensory or strength deficits.] PSYCH: Normal affect <Shasha Nunn MD - Last Filed: 04/03/24 17:17> Course Vital Signs Vital signs: Vital Signs Temperature 97.0 F L 04/03/24 11:27 Pulse Rate 115 H 04/03/24 11:27 Respiratory Rate 18 04/03/24 11:27 Blood Pressure 150/76 H 04/03/24 11:27 Pulse Oximetry 100 04/03/24 11:27 Oxygen Delivery Room Air 04/03/24 11:27 Temperature 97.0 F L 04/03/24 11:27 Pulse Rate 97 04/03/24 15:33 Respiratory Rate 18 04/03/24 15:33 Blood Pressure 125/80 04/03/24 15:33 Pulse Oximetry 100 04/03/24 15:33 Oxygen Delivery Room Air 04/03/24 11:27 <Olivia Valerio PA-C - Last Filed: 04/03/24 15:15> Vital Signs Temperature 97.0 F L 04/03/24 11:27 Pulse Rate 115 H 04/03/24 11:27 Respiratory Rate 18 04/03/24 11:27 Blood Pressure 150/76 H 04/03/24 11:27 Pulse Oximetry 100 04/03/24 11:27 Oxygen Delivery Room Air 04/03/24 11:27 Temperature 97.0 F L 04/03/24 11:27 Pulse Rate 97 04/03/24 15:33 Respiratory Rate 18 04/03/24 15:33 Blood Pressure 125/80 04/03/24 15:33 Pulse Oximetry 100 04/03/24 15:33 Oxygen Delivery Room Air 04/03/24 11:27 <Shasha Nunn MD - Last Filed: 04/03/24 17:17> MDM - Nausea/Vomiting/Diarrhea MDM Narrative Medical decision making narrative: MSE by IVETTE in triage. <Olivia Valerio PA-C - Last Filed: 04/03/24 15:15> MSE by IVETTE in triage. // Patient 21 weeks here with some viral syndrome with headache, some itching to her legs, he intermittent right-sided pain, in diarrhea for last few days. Very concern for preeclampsia given prior history, blood pressure slightly elevated here when she 1st arrived however potentially from anxiety since after she had within the room and discussed normal labs, she calmed down and her blood pressure is now completely normal and so was her heart rate. Labs thankfully benign with normal LFTs, creatinine, no proteinuria. She is tolerating p.o. without issues. Discussed with her OBGYN, reassuring labs/exam/vital signs, not c/w pre-eclampsia, he is working her up outpt for the itching, and will follow up with her in clinic, agreeable to outpatient management. On re-evaluation she feels much better. Strict return precautions discussed. <Shasha Nunn MD - Last Filed: 04/03/24 17:17> Lab Data Result diagrams: 04/03/24 15:01 04/03/24 15:01 <Olivia Valerio PA-C - Last Filed: 04/03/24 15:15> Labs: Lab Results 04/03/24 04/03/24 Range/Units 13:34 15:01 WBC 11.4 H (4.5-10.0) K/mm3 RBC 3.80 L (4.2-5.4) M/mm3 Hgb 11.7 L (12.0-15.0) g/dL Hct 35.3 L (37.0-47.0) % MCV 92.9 (80-100) fl MCH 30.8 (26-34) pg MCHC 33.1 (32-36) g/dl RDW 12.9 (11.5-14.5) % Plt Count 273 (150-375) k/mm3 MPV 9.5 (7.4-10.4) fl Immature Gran % (Auto) 0.4 (0-0.5) % Neut % (Auto) 80.1 H (45.5-73.1) % Lymph % (Auto) 14.3 L (18.3-44.2) % [place] % (Auto) 4.5 (2.6-8.5) % Eos % (Auto) 0.5 (0-4.4) % Baso % (Auto) 0.2 (0.2-1.2) % Lymph # (Auto) 1.63 (0.9-3.2) K/mm3 [place] # (Auto) 0.5 (0.1-0.6) K/mm3 Eos # (Auto) 0.1 (0-0.3) K/mm3 Baso # (Auto) 0.0 (0.0-0.1) K/mm3 Abs Immat Gran (auto) 0.04 H (0.00-0.031) K/mm3 Absolute Neuts (auto) 9.1 H (1.3-6.7) K/mm3 Absolute Nucleated RBC 0.000 (0.0-0.012) K/mm3 Nucleated RBC % 0.0 (0.0-0.2) % PT 14.0 (11.1-14.7) Seconds INR 1.0 APTT 30.3 (22.3-36.8) Seconds Fibrinogen 455 (215-510) mg/dl Sodium 136 L (137-145) mmol/L Potassium 4.0 (3.4-5.0) mmol/L Chloride 107 (98-107) mmol/L Carbon Dioxide 21 L (22-30) mmol/L Anion Gap 8 (4-12) mmol/L BUN 9 (7-17) mg/dL Creatinine 0.44 L (0.7-1.0) mg/dL Estim Creat Clear Calc 194 ml/min Estimated GFR > 60 (59 - ) Glucose 82 (65-110) mg/dL Calcium 8.9 (8.4-10.2) mg/dL Magnesium 1.9 (1.6-2.3) mg/dL Total Bilirubin 0.4 (0.2-1.3) mg/dL AST 17 (14-36) U/L ALT 11 (6-35) U/L Alkaline Phosphatase 85 (38-126) U/L Lactate Dehydrogenase 148 (120-246) U/L Total Protein 7.0 (6.3-8.2) g/dL Albumin 3.6 (3.5-5.1) g/dL Urine Color Yellow (Yellow) Urine Appearance Clear (Clear) Urine pH 6.0 (5.0-9.0) Ur Specific [place] 1.024 (1.001-1.035) Urine Protein Negative (Negative) mg/dL Urine Glucose (UA) Negative (Negative) mg/dL Urine Ketones Negative (Negative) mg/dL Ur Blood (Man) Negative (Negative) Urine Nitrate Negative (Negative) Urine Bilirubin Negative (Negative) Urine Urobilinogen 0.2 (<2.0) mg/dL Leukocyte Esterase Rfl Negative (Negative) ERASMO/UL Influenza A (RT-PCR) Negative (Negative) Influenza B (RT-PCR) Negative (Negative) RSV (RT-PCR) Negative (Negative) SARS-CoV-2 RNA (RT-PCR) Negative (Negative) <Olivia Valerio PA-C - Last Filed: 04/03/24 15:15> Lab Results 04/03/24 04/03/24 Range/Units 13:34 15:01 WBC 11.4 H (4.5-10.0) K/mm3 RBC 3.80 L (4.2-5.4) M/mm3 Hgb 11.7 L (12.0-15.0) g/dL Hct 35.3 L (37.0-47.0) % MCV 92.9 (80-100) fl MCH 30.8 (26-34) pg MCHC 33.1 (32-36) g/dl RDW 12.9 (11.5-14.5) % Plt Count 273 (150-375) k/mm3 MPV 9.5 (7.4-10.4) fl Immature Gran % (Auto) 0.4 (0-0.5) % Neut % (Auto) 80.1 H (45.5-73.1) % Lymph % (Auto) 14.3 L (18.3-44.2) % [place] % (Auto) 4.5 (2.6-8.5) % Eos % (Auto) 0.5 (0-4.4) % Baso % (Auto) 0.2 (0.2-1.2) % Lymph # (Auto) 1.63 (0.9-3.2) K/mm3 [place] # (Auto) 0.5 (0.1-0.6) K/mm3 Eos # (Auto) 0.1 (0-0.3) K/mm3 Baso # (Auto) 0.0 (0.0-0.1) K/mm3 Abs Immat Gran (auto) 0.04 H (0.00-0.031) K/mm3 Absolute Neuts (auto) 9.1 H (1.3-6.7) K/mm3 Absolute Nucleated RBC 0.000 (0.0-0.012) K/mm3 Nucleated RBC % 0.0 (0.0-0.2) % PT 14.0 (11.1-14.7) Seconds INR 1.0 APTT 30.3 (22.3-36.8) Seconds Fibrinogen 455 (215-510) mg/dl Sodium 136 L (137-145) mmol/L Potassium 4.0 (3.4-5.0) mmol/L Chloride 107 (98-107) mmol/L Carbon Dioxide 21 L (22-30) mmol/L Anion Gap 8 (4-12) mmol/L BUN 9 (7-17) mg/dL Creatinine 0.44 L (0.7-1.0) mg/dL Estim Creat Clear Calc 194 ml/min Estimated GFR > 60 (59 - ) Glucose 82 (65-110) mg/dL Calcium 8.9 (8.4-10.2) mg/dL Magnesium 1.9 (1.6-2.3) mg/dL Total Bilirubin 0.4 (0.2-1.3) mg/dL AST 17 (14-36) U/L ALT 11 (6-35) U/L Alkaline Phosphatase 85 (38-126) U/L Lactate Dehydrogenase 148 (120-246) U/L Total Protein 7.0 (6.3-8.2) g/dL Albumin 3.6 (3.5-5.1) g/dL Urine Color Yellow (Yellow) Urine Appearance Clear (Clear) Urine pH 6.0 (5.0-9.0) Ur Specific [place] 1.024 (1.001-1.035) Urine Protein Negative (Negative) mg/dL Urine Glucose (UA) Negative (Negative) mg/dL Urine Ketones Negative (Negative) mg/dL Ur Blood (Man) Negative (Negative) Urine Nitrate Negative (Negative) Urine Bilirubin Negative (Negative) Urine Urobilinogen 0.2 (<2.0) mg/dL Leukocyte Esterase Rfl Negative (Negative) ERASMO/UL Influenza A (RT-PCR) Negative (Negative) Influenza B (RT-PCR) Negative (Negative) RSV (RT-PCR) Negative (Negative) SARS-CoV-2 RNA (RT-PCR) Negative (Negative) <Shasha Nunn MD - Last Filed: 04/03/24 17:17> Discharge Plan Discharge Clinical Impression: Diarrhea <Olivia Valerio PA-C - Last Filed: 04/03/24 15:15> Patient Disposition: Home, Self-Care <Olivia Valerio PA-C - Last Filed: 04/03/24 15:15> Condition: Stable <Olivia Valerio PA-C - Last Filed: 04/03/24 15:15> Instructions: Acute Diarrhea (ED) <Olivia Valerio PA-C - Last Filed: 04/03/24 15:15> Additional Instructions: Please follow-up with your OBGYN, make sure you are keeping hydrated, and come back to the emergency room for any further issues. <Olivia Valerio PA-C - Last Filed: 04/03/24 15:15> Patient Language: Armenian <Olivia Valerio PA-C - Last Filed: 04/03/24 15:15> Prescriptions: No Action No Home Medications <Olivia Valerio PA-C - Last Filed: 04/03/24 15:15> Follow-up/Referrals: Jun Delgado MD [Physician] - 2 Days PHYSICIAN NOT ON STAFF,NONSTAFF [Non-Staff] - <Olivia Valerio PA-C - Last Filed: 04/03/24 15:15>
[2024-04-03 15:08] LABS: Basophils Percent Auto 0.2 % (0.2-1.2); Eosinophils Absolute Auto 0.1 K/mm3 (0-0.3); Eosinophils Percent Auto 0.5 % (0-4.4); Hematocrit 35.3 % (37.0-47.0); Hemoglobin 11.7 g/dL (12.0-15.0); Immature Granulocyte Absolute 0.04 K/mm3 (0.00-0.031); Immature Granulocyte Percent A 0.4 % (0-0.5); Lymphocytes Absolute Auto 1.63 K/mm3 (0.9-3.2); Lymphocytes Percent Auto 14.3 % (18.3-44.2); Mean Corpuscular HGB Conc 33.1 g/dl (32-36); Mean Corpuscular Hemoglobin 30.8 pg (26-34); Mean Corpuscular Volume 92.9 fl (80-100); Mean Platelet Volume 9.5 fl (7.4-10.4); Monocytes Absolute Auto 0.5 K/mm3 (0.1-0.6); Monocytes Percent Auto 4.5 % (2.6-8.5); Neutrophils Absolute Auto 9.1 K/mm3 (1.3-6.7); Neutrophils Percent Auto 80.1 % (45.5-73.1); Platelet Count Result 273 k/mm3 (150-375); Red Cell Distribution Width 12.9 % (11.5-14.5); White Blood Count 11.4 K/mm3 (4.5-10.0)
[2024-04-03 15:10] LABS: Add Urine Microscopic? NO; Appearance Urine Clear (Clear); Bilirubin Urine Negative (Negative); Blood Urine Negative (Negative); Color Urine Yellow (Yellow); Glucose Urine UA Negative (Negative); Ketones Urine Negative (Negative); Leukocyte Esterase Ur Negative LEU/UL (Negative); Nitrate Urine Negative (Negative); Protein Urine Negative (Negative); Specific Grav Ur 1.024 (1.001-1.035); Urobilinogen Urine 0.2 mg/dL (<2.0)
[2024-04-03 15:18] LABS: Alanine Aminotransferase 11 U/L (6-35); Albumin Level 3.6 g/dL (3.5-5.1); Alkaline Phosphatase 85 U/L (38-126); Anion Gap 8 mmol/L (4-12); Aspartate Amino Transferase 17 U/L (14-36); Bilirubin,Total 0.4 mg/dL (0.2-1.3); Blood Urea Nitrogen 9 mg/dL (7-17); Calcium 8.9 mg/dL (8.4-10.2); Carbon Dioxide 21 mmol/L (22-30); Chloride 107 mmol/L (98-107); Estimated CRCL calculation 194 ml/min; Estimated Glomerular Filt Rate > 60; Glucose 82 mg/dL (65-110); Lactate Dehydrogenase 148 U/L (120-246); Sodium 136 mmol/L (137-145)
[2024-04-03 15:24] LABS: Fibrinogen 455 mg/dl (215-510); Partial Thromboplastin Time 30.3 Seconds (22.3-36.8)
--- OUTSIDE RECORDS SUMMARY | 2024-04-03 15:32 | XMS_ITS | Encounter Summary ---
Author Organization [facility] Address [address] 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
--- OUTSIDE RECORDS SUMMARY | 2024-04-03 15:32 | XMS_ITS | Encounter Summary ---
Author Organization [facility] Address [address] [place] [address] Phone Care Team Providers Care Lead Teller Name Role Phone Enrrique Ordonez MD Primary Care Provider [phone] Rohit Hodgson APRN, CNP Primary Care Pr ovider Reason for Visit * Reason Comments Medication Refill Encounter Details Date Type Department Care Team (Late st Contact Info) Description 10/25/2022 Refill [facility] Medical [facility] - Family Medicine [facility] [address] [place] [address] Rohit Hodgson APRN, EMMANUEL [address] [address] Medication Refill Social History Tobacco Use Types [...] 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 on file Not [...] Dept 04/26/22 Telemedicine Rohit Hodgson APRN[place] [facility] [place] Office Visit Enrrique Ordonez MD [facility] 01/04/22 Office Visit Enrrique Ordonez MD [facility] 12/07/21 Office Visit Enrrique Ordonez MD [facility] 11/09/21 Office Visit Enrrique Ordonez MD [facility] [place] Showing recent visits within past 365 [...] 19 12/21/2022 12/21/2022 12/31/2022 12:1 6 AM VALUE ENGINEER Assessment Noted Time PHQ-9 Depression Total Score: 10 020 9:19 AM CDT documented as of this encounter Care Teams Lead Teller Relationship Specialty Start Date End Date Enrrique Ordonez MD PCP - General Family Medicine 08/03/19 10/12/23 Rohit Hodgson APRN, ABRASIVE WORKER [address] [place] [address] PCP - General Advanced Practice Nurse 10/14/23 documented as of this encounter
--- OUTSIDE RECORDS SUMMARY | 2024-04-03 15:32 | XMS_ITS | Encounter Summary ---
Author Organization [facility] Address [address] 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
--- OUTSIDE RECORDS SUMMARY | 2024-04-03 15:32 | XMS_ITS | Encounter Summary ---
Author Organization [facility] Address [address] [place] [address] Phone Care Team Providers Care Independent Sales Representative Name Role Phone Enrrique Ordonez MD Primary Care Provider [phone] Rohit Hodgson APRN, SANITATION INSPECTOR Primary Care Pr ovider Reason for Visit * Reason Comments Medication Refill Encounter Details Date Type Department Care Team (Late st Contact Info) Description 12/21/2022 Refill [facility] Medical [facility] - Family Medicine [facility] [address] [place] [address] Rosie Velez APRN, SANITATION INSPECTOR [address] [place] [address] Medication Refill Social History Tobacco Use Types [...] 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
--- OUTSIDE RECORDS SUMMARY | 2024-04-03 15:32 | XMS_ITS | Encounter Summary ---
Author Organization [facility] Address [address] 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 No / Unsure 10/16/2019 2:55 PM CDT documented as of this encounter Miscellaneous Notes * Telephone Encounter - Linda Kednrick RN - 10/23/2019 6:11 PM CDT Refill pended * Telephone Encounter - Pratiam Bentley RN - 10/23/2019 2:05 PM CDT NEW PHARMACY Received: [x]FAX []TELEPHONE CALL []MYCHART from: [x]PHARMACY []PATIENT/OTHER regarding medication management. Medication name and dose: gabapentin 400mg caps Quantity: (30 day, 90 day, 3 monthly scripts) 90 days Pharmacy preference for this medication: [facility] Outcome: [x]Medication pended, routed to surescripts []Medication [...] 19 03/10/2020 03/10/2020 03/13/2020 10:0 5 PM CASH CONTROL SPECIALIST COVID - 19 09/23/2020 09/23/2020 09/24/2020 9:09 AM CDT COVID - 19 Confirmed 03/07/2021 03/07/2021 022 12:16 AM CASH CONTROL SPECIALIST COVID - 19 12/21/2022 12/21/2022 12/31/2022 12:1 6 AM CASH CONTROL SPECIALIST Assessment Noted Time PHQ-9 Depression Total Score: 10 020 9:19 AM CDT documented as of this encounter Care Teams Industrial Diamond Polisher Relationship Specialty Start Date End Date Enrrique Ordonez MD PCP - General Family Medicine 08/03/19 10/12/23 Rohit Hodgson, CARLINE, UTILITY TECHNICIAN [address] [place] [address] PCP - General Advanced Practice Nurse 10/14/23 documented as of this encounter
--- OUTSIDE RECORDS SUMMARY | 2024-04-03 15:32 | XMS_ITS | Encounter Summary ---
Author Organization [facility] Address [address] [place] [address] Phone Care Team Providers Care Procurement Coordinator Name Role Phone Enrrique Ordonez MD Primary Care Provider [phone] Rohit Hodgson APRN PIPE AND TEST SUPERVISOR Primary Care Pr ovider Reason for Visit * Reason Onset Date Comments Medication Refill Medication Refill 10/28/2020 Medication Refill 10/30/2020 Encounter Details Date Type Department Care Team (Late st Contact Info) Description 10/24/2020 Refill [facility] Medical [facility] - Family Medicine [facility] [address] [place] [address] Enrrique Ordonez MD [address] [place] [address] Medication Refill; Medication Refill; Medication Refill Social [...] 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
--- OUTSIDE RECORDS SUMMARY | 2024-04-03 15:32 | XMS_ITS | Encounter Summary ---
Author Organization [facility] Address [address] 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
--- OUTSIDE RECORDS SUMMARY | 2024-04-03 15:32 | XMS_ITS | Encounter Summary ---
Author Organization [facility] Address [address] 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
--- OUTSIDE RECORDS SUMMARY | 2024-04-03 15:32 | XMS_ITS | Encounter Summary ---
Author Organization [facility] Address [address] 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 Not [...] [place] 12/10/20 Office Visit Enrrique Ordonez MD [facility] [place] Showing recent visits within past 365 [...] 19 12/21/2022 12/21/2022 12/31/2022 12:1 6 AM COMMUNITY HEALTH COORDINATOR Assessment Noted Time PHQ-9 Depression Total Score: 10 020 9:19 AM CDT documented as of this encounter Care Teams Maintenance Worker House Trailer Relationship Specialty Start Date End Date Enrrique Ordonez MD PCP - General Family Medicine 08/03/19 10/12/23 Rohit Hodgson APRN, SPINNER FIXER [address] [address] [address] PCP - General Advanced Practice Nurse 10/14/23 documented as of this encounter
--- OUTSIDE RECORDS SUMMARY | 2024-04-03 15:32 | XMS_ITS | Encounter Summary ---
Author Organization [facility] Address [address] 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
--- OUTSIDE RECORDS SUMMARY | 2024-04-03 15:32 | XMS_ITS | Clinical Summary ---
Author Organization [facility] Address [address] [place] [address] Phone Care Team Providers Care Information Systems Professor Name Role Phone Rohit Hodgson APRN, CNP [...] up to follow a psychiatrist through the [facility] service, if they haven't already been [...] oz pur e alcohol) Quit in 2018 [facility] Utilities Answer Date Recorded In the past 12 months has [employer], gas, oil, or water company threatened to [...] week 04/20/2023 How often do you attend [facility] or alevism services? 1 to 4 times per year 04/20/2023 Do you belong to any clubs o r organizations such as sikh groups, unions, fraternal or athletic groups, or [...] Total Score - Questions 1-9 10 07/22 [facility] of Occupat ional Health - Occupational Stress [...] place to sleep or slept in a skilled nursing (including now)? 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 on file Not [...] Priority Date/Time Associated Diagnosis Comments PATHOLOGY CYTOLOGY MUD ANALYSIS WELL LOGGING CAPTAIN Routine 10/10/2018 from Last 3 Months or Most Recently Relevant to Health Maintenance Results * PATHOLOGY CYTOLOGY MUD ANALYSIS WELL LOGGING CAPTAIN (10/10/2018) Other Alissa Schultz MD PATHOLOGY/CYTOLOGY ORDER DENNIS Final Result from Last 3 Months or Most Recently Relevant to Health Maintenance [place] [address] [facility] Care Teams Information Systems Professor Relationship Specialty Start Date End Date Rohit Hodgson, COURT SUPERVISOR, DIESEL DINKEY OPERATOR [address] [place] [id number] PCP - General Advanced Practice Nurse 10/14/23
--- OUTSIDE RECORDS SUMMARY | 2024-04-03 15:32 | XMS_ITS | Encounter Summary ---
Author Organization [facility] Address [address] [place] [address] Phone Care Team Providers Care Coating Technician Name Role Phone Enrrique Ordonez MD Primary Care Provider Rohit Hodgson APRN, CNP Primary Care Pr ovider Reason for Visit * Reason Onset Date Comments Foot Pain 05/29/2021 Encounter Details Date Type Department Care Team (Late st Contact Info) Description 05/29/2021 Nurse Triage [facility] Medical Group - Family [facility] [address] [place] [address] Enrrique Ordonez MD [address] [place] [address] Foot Pain Social History Tobacco Use Types [...] Industry Job Start Date Job End Date [employer] Not on file Not on file Not [...] or imaging Will send a picture to [employer] Please advise? Pharm/meds/allergies/address verified First positive answer [...] 19 12/21/2022 12/21/2022 12/31/2022 12:1 6 AM POLICE LIEUTENANT Assessment Noted Time PHQ-9 Depression Total Score: 10 020 9:19 AM CDT documented as of this encounter Care Teams Coating Technician Relationship Specialty Start Date End Date Enrrique Ordonez MD PCP - General Family Medicine 08/03/19 10/12/23 Rohit Hodgson, THERMITE WELDER, AUTOMOTIVE LOT ATTENDANT [address] [place] [address] PCP - General Advanced Practice Nurse 10/14/23 documented as of this encounter
--- OUTSIDE RECORDS SUMMARY | 2024-04-03 15:32 | XMS_ITS | Encounter Summary ---
Author Organization [facility] Address [address] [facility] 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 No / Unsure 04/13/2021 9:52 AM INSURANCE SALESPERSON documented as of this encounter Miscellaneous Notes [...] 1. Testing is recommended- go online to [employer] for testing locations, utilize [employer] toschedule testing, or use the [employer] tana on your smart phone to locate [...] guidance and will make changes as necessary RANCE SALESPERSON documented in this encounter Plan of Treatment Not on file documented as of this encounter Visit Diagnoses Not on filedocumented in this encounter Additional Health Concerns Infection Onset Date Last Indicated Resolved Time COVID - 19 12/21/2022 12/21/2022 12/31/2022 12:1 6 AM INSURANCE SALESPERSON Assessment Noted Time PHQ-9 Depression Total Score: 10 020 9:19 AM CDT documented as of this encounter Care Teams Dinkey Locomotive Operator Relationship Specialty Start Date End Date Enrrique Ordonez MD PCP - General Family Medicine 08/03/19 10/12/23 Rohit Hodgson, VEGETABLE FARMING SUPERVISOR, TOWER CLEANER #[address] [address] PCP - General Advanced Practice Nurse 10/14/23 documented as of this encounter
--- OUTSIDE RECORDS SUMMARY | 2024-04-03 15:32 | XMS_ITS | Encounter Summary ---
Author Organization [facility] Address [address] 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 No / Unsure 03/20/2021 10:09 AM HEAD START COORDINATOR documented as of this encounter Miscellaneous Notes [...] 90 days and meeting all other requirements START COORDINATOR documented in this encounter Plan of Treatment Not on file documented as of this encounter Visit Diagnoses Diagnosis Neuropathy Mononeuritis of unspecified site documented in this encounter Additional Health Concerns Infection Onset Date Last Indicated Resolved Time COVID - 19 12/21/2022 12/21/2022 12/31/2022 12:1 6 AM HEAD START COORDINATOR Assessment Noted Time PHQ-9 Depression Total Score: 10 020 9:19 AM CDT documented as of this encounter Care Teams Propulsion Machinery Service Engineer Relationship Specialty Start Date End Date Enrrique Ordonez MD PCP - General Family Medicine 08/03/19 10/12/23 Rohit Hodgson APRN, TENSILE TESTER [address] [address] PCP - General Advanced Practice Nurse 10/14/23 documented as of this encounter
--- OUTSIDE RECORDS SUMMARY | 2024-04-03 15:32 | XMS_ITS | Encounter Summary ---
Author Organization [facility] Address [address] 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 Not on file Not on file documented as of this encounter Plan of Treatment Not on file documented as of this encounter Visit Diagnoses Diagnosis Neuropathy Mononeuritis of unspecified site documented in this encounter Additional Health Concerns Infection Onset Date Last Indicated Resolved Time COVID - 19 12/21/2022 12/21/2022 12/31/2022 12:1 6 AM LOOM CHECKER Assessment Noted Time PHQ-9 Depression Total Score: 10 020 9:19 AM CDT documented as of this encounter Care Teams Director Corporate Communications Relationship Specialty Start Date End Date Enrrique Ordonez MD PCP - General Family Medicine 08/03/19 10/12/23 Rohit Hodgson, BOX SPRING FRAME BUILDER, DIRECTOR OF ACCREDITATION #[address] [address] PCP - General Advanced Practice Nurse 10/14/23 documented as of this encounter
[2024-04-03 15:33] VITALS: BP 125/80; PULSE 97; RESP 18; O2SAT 100
[2024-04-03 15:55] LABS: Magnesium 1.9 mg/dL (1.6-2.3)
[2024-04-03] MEDS: METOCLOPRAMIDE HCL INJ 10 MG/2 ML VIAL IV PUSH (16:15)
[2024-04-03] MEDS: diphenhydrAMINE HCl INJ 50 MG/ML VIAL 25 MG IV PUSH (16:15)
[2024-04-03] MEDS: LACTATED RINGERS 1,000 ML 999 ML IV CONT (16:15)
[2024-04-03 17:40] VITALS: BP 113/70; PULSE 88; RESP 16; TEMP 36.3; O2SAT 100
== END 2024-04-03 17:48 | disposition home or self-care (01) ==
PROVIDERS: Physician Assistant; Emergency Provider Emergency Medicine
DX: O99.891 Other specified diseases and conditions complicating pregnancy (principal); R19.7 Diarrhea, unspecified; Z20.822 Contact with and (suspected) exposure to COVID-19; Z3A.29 29 weeks gestation of pregnancy
CPT/HCPCS: 36415; 80053; 81003; 83615; 83735; 85025; 85384; 85610; 85730; 87637; 96361; 96374; 96375; 99284; J1200; J2765; J7120

== ENCOUNTER 2024-04-05 15:39 | Outpatient (CLI) | payer BC, SELFPAY ==
--- OUTSIDE RECORDS SUMMARY | 2024-04-05 15:49 | XMS_ITS | Encounter Summary ---
Author Organization [facility] Address [address] 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
--- OUTSIDE RECORDS SUMMARY | 2024-04-05 15:49 | XMS_ITS | Encounter Summary ---
Author Organization [facility] Address [address] 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
--- OUTSIDE RECORDS SUMMARY | 2024-04-05 15:49 | XMS_ITS | Encounter Summary ---
Author Organization [facility] Address [address] [facility] 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 No / Unsure 04/13/2021 9:52 AM MANAGER MENTAL HEALTH documented as of this encounter Miscellaneous Notes [...] 1. Testing is recommended- go online to [employer] for testing locations, utilize KeepTraxhart toschedule testing, or use the [employer] tana on your smart phone to locate [...] guidance and will make changes as necessary GER MENTAL HEALTH documented in this encounter Plan of Treatment Not on file documented as of this encounter Visit Diagnoses Not on filedocumented in this encounter Additional Health Concerns Infection Onset Date Last Indicated Resolved Time COVID - 19 12/21/2022 12/21/2022 12/31/2022 12:1 6 AM MANAGER MENTAL HEALTH Assessment Noted Time PHQ-9 Depression Total Score: 10 020 9:19 AM CDT documented as of this encounter Care Teams Beef Specialist Relationship Specialty Start Date End Date Enrrique Ordonez MD PCP - General Family Medicine 08/03/19 10/12/23 Rohit Hodgson, UROLOGY PHYSICIAN ASSISTANT, GOLF STUD RIVETER #[address] [address] PCP - General Advanced Practice Nurse 10/14/23 documented as of this encounter
--- OUTSIDE RECORDS SUMMARY | 2024-04-05 15:49 | XMS_ITS | Encounter Summary ---
Author Organization [facility] Address [address] 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 on file Not [...] Dept 04/26/22 Telemedicine Rohit Hodgson APRN, EMMANUEL [facility] [place] [facility] Office Visit Enrrique [...] 19 12/21/2022 12/21/2022 12/31/2022 12:1 6 AM HEART DOCTOR Assessment Noted Time PHQ-9 Depression Total Score: 10 020 9:19 AM CDT documented as of this encounter Care Teams Alberene Stone Setter Relationship Specialty Start Date End Date Enrrique Ordonez MD PCP - General Family Medicine 08/03/19 10/12/23 Rohit Hodsgon APRN, TELECOMMUNICATIONS ENGINEER [address] [place] [address] PCP - General Advanced Practice Nurse 10/14/23 documented as of this encounter
--- OUTSIDE RECORDS SUMMARY | 2024-04-05 15:49 | XMS_ITS | Encounter Summary ---
Author Organization [facility] Address [address] [place] [address] Phone Care Team Providers Care Certified Registered Dental Assistant Name Role Phone Enrrique Ordonez MD Primary Care Provider [phone] Rohit Hodgson APRN, CNP Primary Care Pr ovider Reason for Visit * Reason Comments Medication Refill Encounter Details Date Type Department Care Team (Late st Contact Info) Description 03/28/2021 Refill [facility] Medical Group - Family Medicine [facility] [address]2 [place] [phone] Enrrique Ordonez MD [address] [place] [address] Medication Refill Social History Tobacco Use Types [...] 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 No / Unsure 03/20/2021 10:09 AM REGIONAL SERVICE MANAGER documented as of this encounter Miscellaneous [...] 90 days and meeting all other requirements ONAL SERVICE MANAGER documented in this encounter Plan of Treatment Not on file documented as of this encounter Visit Diagnoses Diagnosis Neuropathy Mononeuritis of unspecified site documented in this encounter Additional Health Concerns Infection Onset Date Last Indicated Resolved Time COVID - 19 12/21/2022 12/21/2022 12/31/2022 12:1 6 AM REGIONAL SERVICE MANAGER Assessment Noted Time PHQ-9 Depression Total Score: 10 020 9:19 AM CDT documented as of this encounter Care Teams Certified Registered Dental Assistant Relationship Specialty Start Date End Date Enrrique Ordonez MD PCP - General Family Medicine 08/03/19 10/12/23 Rohit Hodgson APRN, EARLY CHILDHOOD DIRECTOR [address] [address] PCP - General Advanced Practice Nurse 10/14/23 documented as of this encounter
--- OUTSIDE RECORDS SUMMARY | 2024-04-05 15:49 | XMS_ITS | Encounter Summary ---
Author Organization [facility] Address [address] 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
--- OUTSIDE RECORDS SUMMARY | 2024-04-05 15:49 | XMS_ITS | Encounter Summary ---
Author Organization [facility] Address [address] [place] [address] Phone Care Team Providers Care Fur Buyer Name Role Phone Enrrique Ordonez MD Primary Care Provider [phone] Rohit Hodgson APRN, CNP Primary Care Pr ovider Reason for Visit * Reason Comments Medication Refill Encounter Details Date Type Department Care Team (Late st Contact Info) Description 06/13/2022 Refill [facility] Medical Group - Family Medicine 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
--- OUTSIDE RECORDS SUMMARY | 2024-04-05 15:49 | XMS_ITS | Clinical Summary ---
Author Organization [facility] Address [address] [place] [address] Phone Care Team Providers Care Paper Tube Cutter Name Role Phone Rohit Hodgson APRN, CNP [...] up to follow a psychiatrist through the [facility] service, if they haven't already been following [...] oz pur e alcohol) Quit in 2018 [facility] Utilities Answer Date Recorded In the past 12 months has [employer], gas, oil, or water company threatened to [...] week 04/20/2023 How often do you attend [facility] or synagogue services? 1 to 4 times per year 04/20/2023 Do you belong to any clubs o r organizations such as judaism groups, unions, fraternal or athletic groups, or [...] Total Score - Questions 1-9 10 07/22 [facility] of Occupat ional Health - Occupational Stress [...] place to sleep or slept in a fpc (including now)? 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 [...] Priority Date/Time Associated Diagnosis Comments PATHOLOGY CYTOLOGY SQUARE CUTTER Routine 10/10/2018 from Last 3 Months or Most Recently Relevant to Health Maintenance Results * PATHOLOGY CYTOLOGY SQUARE CUTTER (10/10/2018) Other Alissa Schultz MD PATHOLOGY/CYTOLOGY ORDER DENNIS Final Result from Last 3 Months or Most Recently Relevant to Health Maintenance [place] [address] [place] [address] [facility] Care Teams Paper Tube Cutter Relationship Specialty Start Date End Date Rohit Hodgson, PHYS THERAPIST, SUPERVISOR CLOTH WINDING [address] [place] [id number] PCP - General Advanced Practice Nurse 10/14/23
--- OUTSIDE RECORDS SUMMARY | 2024-04-05 15:49 | XMS_ITS | Encounter Summary ---
Author Organization [facility] Address [address] [place] [address] Phone Care Team Providers Care Inventory Representative Name Role Phone Enrrique Ordonez MD Primary Care Provider [phone] Rohit Hodgson APRN, ENDOSCOPY RN Primary Care Pr ovider Reason for Visit * Reason Comments Medication Refill Encounter Details Date Type Department Care Team (Late st Contact Info) Description 12/21/2022 Refill 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
--- OUTSIDE RECORDS SUMMARY | 2024-04-05 15:49 | XMS_ITS | Encounter Summary ---
Author Organization [facility] Address [address] [place] [address] Phone Care Team Providers Care Curriculum Assistant Principal Name Role Phone Enrrique Ordonez MD Primary Care Provider [phone] Rohit Hodgson APRN, CNP Primary Care Pr ovider Reason for Visit * Reason Onset Date Comments Foot Pain 05/29/2021 Encounter Details Date Type Department Care Team (Late st Contact Info) Description 05/29/[address] 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 Pharm/meds/allergies/address verified First positive answer [...] 19 12/21/2022 12/21/2022 12/31/2022 12:1 6 AM ICER MACHINE OPERATOR Assessment Noted Time PHQ-9 Depression Total Score: 10 020 9:19 AM CDT documented as of this encounter Care Teams Curriculum Assistant Principal Relationship Specialty Start Date End Date Enrrique Ordonez MD PCP - General Family Medicine 08/03/19 10/12/23 Rohit Hodgson, BREAD DOUGH MIXER, POST GRADUATE INTERNSHIP #2 [place] [address] PCP - General Advanced Practice Nurse 10/14/23 documented as of this encounter
--- OUTSIDE RECORDS SUMMARY | 2024-04-05 15:49 | XMS_ITS | Encounter Summary ---
Author Organization [facility] Address [address] 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
--- OUTSIDE RECORDS SUMMARY | 2024-04-05 15:49 | XMS_ITS | Encounter Summary ---
Author Organization [facility] Address [address] [place] [address] Phone Care Team Providers Care Automobile Parts Assembler Name Role Phone Enrrique Ordonez MD Primary Care Provider [phone] Rohit Hodgson APRN PANEL SAW OPERATOR Primary Care Pr ovider Reason for Visit * Reason Onset Date Comments Medication Refill Medication Refill 10/28/2020 Medication Refill 10/30/2020 Encounter Details Date Type Department Care Team (Late st Contact Info) Description 10/24/2020 Refill [facility] Medical Group - Family Medicine [facility] [address]2 [place] [address] Enrrique Ordonez MD [address] [place] [address] Medication Refill; Medication Refill; Medication Refill Social [...] 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
--- OUTSIDE RECORDS SUMMARY | 2024-04-05 15:49 | XMS_ITS | Encounter Summary ---
Author Organization [facility] Address [address] 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 file Not on file documented as of this encounter Plan of Treatment Not on file documented as of this encounter Visit Diagnoses Diagnosis Neuropathy Mononeuritis of unspecified site documented in this encounter Additional Health Concerns Infection Onset Date Last Indicated Resolved Time COVID - 19 12/21/2022 12/21/2022 12/31/2022 12:1 6 AM CHANNEL SALES DIRECTOR Assessment Noted Time PHQ-9 Depression Total Score: 10 020 9:19 AM CDT documented as of this encounter Care Teams Clinical Assoc Relationship Specialty Start Date End Date Enrrique Ordonez MD PCP - General Family Medicine 08/03/19 10/12/23 Rohit Hodgson, EXPANSION JOINT BUILDER, CIRCUIT COURT MAGISTRATE #[address] [address] PCP - General Advanced Practice Nurse 10/14/23 documented as of this encounter
--- OUTSIDE RECORDS SUMMARY | 2024-04-05 15:49 | XMS_ITS | Encounter Summary ---
Author Organization [facility] Address [address] 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 on file [...] days Pharmacy preference for this medication: [facility] Outcome: [x]Medication pended, routed to surescripts []Medication [...] 19 03/10/2020 03/10/2020 03/13/2020 10:0 5 PM VENDING MACHINE MECHANIC COVID - 19 09/23/2020 09/23/2020 09/24/2020 9:09 AM CDT COVID - 19 Confirmed 03/07/2021 03/07/2021 022 12:16 AM VENDING MACHINE MECHANIC COVID - 19 12/21/2022 12/21/2022 12/31/2022 12:1 6 AM VENDING MACHINE MECHANIC Assessment Noted Time PHQ-9 Depression Total Score: 10 020 9:19 AM CDT documented as of this encounter Care Teams Patient Day Coordinator Relationship Specialty Start Date End Date Enrrique Ordonez MD PCP - General Family Medicine 08/03/19 10/12/23 Rohit Hodgson, CARLINE, MOTOR COACH DRIVER [address] [place] [address] PCP - General Advanced Practice Nurse 10/14/23 documented as of this encounter
--- OUTSIDE RECORDS SUMMARY | 2024-04-05 15:49 | XMS_ITS | Encounter Summary ---
Author Organization [facility] Address [address] 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 * Telephone Encounter - eJnni Crawford RN - 12/02/2021 11:59 AM CDT duplicate documented in this encounter Plan of Treatment Not on file documented as of this encounter Visit Diagnoses Diagnosis Neuropathy Mononeuritis of unspecified site documented in this encounter Additional Health Concerns Infection Onset Date Last Indicated Resolved Time COVID - 19 12/21/2022 12/21/2022 12/31/2022 12:1 6 AM BOAT TENDER Assessment Noted Time PHQ-9 Depression Total Score: 10 020 9:19 AM CDT documented as of this encounter Care Teams Save All Operator Relationship Specialty Start Date End Date Enrrique Ordonez MD PCP - General Family Medicine 08/03/19 10/12/23 Rohit Hodgson APRN, PT SKILLED #[address] [address] PCP - General Advanced Practice Nurse 10/14/23 documented as of this encounter
--- NOTE | 2024-04-05 15:50 | PC.NURSE ---
pt reports having blurred vision while up moving around, [place] that is dull but denies taking pain medication. Pt also reports having facial swelling. Pt states her palms, feet and shins are itchy. Pt states that MD knows about these symptoms.
[2024-04-05 16:00] VITALS: BP 125/70; PULSE 102
[2024-04-05 16:02] VITALS: BP 124/62; PULSE 97
[2024-04-05 16:16] VITALS: BP 126/66; PULSE 101
--- NOTE | 2024-04-05 16:24 | PC.NURSE ---
MD notified of pt symptoms. MD aware of pt having pending Bile acids and pt having PIH blood work 2 days ago. Order received for PIH work up today.
[2024-04-05 16:31] VITALS: BP 134/97; PULSE 102
[2024-04-05 16:51] LABS: Basophils Percent Auto 0.1 % (0.2-1.2); Eosinophils Absolute Auto 0.1 K/mm3 (0-0.3); Eosinophils Percent Auto 0.7 % (0-4.4); Hemoglobin 11.1 g/dL (12.0-15.0); Immature Granulocyte Absolute 0.06 K/mm3 (0.00-0.031); Immature Granulocyte Percent A 0.4 % (0-0.5); Lymphocytes Absolute Auto 1.46 K/mm3 (0.9-3.2); Lymphocytes Percent Auto 10.9 % (18.3-44.2); Mean Corpuscular HGB Conc 33.6 g/dl (32-36); Mean Corpuscular Hemoglobin 30.9 pg (26-34); Mean Corpuscular Volume 91.9 fl (80-100); Mean Platelet Volume 9.6 fl (7.4-10.4); Monocytes Absolute Auto 0.6 K/mm3 (0.1-0.6); Monocytes Percent Auto 4.2 % (2.6-8.5); Neutrophils Absolute Auto 11.2 K/mm3 (1.3-6.7); Neutrophils Percent Auto 83.7 % (45.5-73.1); Platelet Count Result 273 k/mm3 (150-375); Red Blood Count 3.59 M/mm3 (4.2-5.4); Red Cell Distribution Width 12.7 % (11.5-14.5); White Blood Count 13.4 K/mm3 (4.5-10.0)
[2024-04-05 17:01] LABS: Add Urine Microscopic? YES; Appearance Urine Turbid (Clear); Bacteria Urine None Seen /hpf; Bilirubin Urine Negative (Negative); Blood Urine Negative (Negative); Calcium Oxalate Crystals Urine Present /hpf; Color Urine Yellow (Yellow); Glucose Urine UA Negative (Negative); Ketones Urine Trace mg/dL (Negative); Leukocyte Esterase Ur Negative LEU/UL (Negative); Need Manual Microscopic Reviewed; Nitrate Urine Negative (Negative); Non Pathogenic Casts 0-2; Protein Urine Trace mg/dL (Negative); RBC Urine 0-2 /hpf (0-2); Specific Grav Ur 1.028 (1.001-1.035); Squamous Epithelial Cell Urine Few /hpf (Few); Urobilinogen Urine 0.2 mg/dL (<2.0); WBC Urine 0-5 /hpf (0-3)
[2024-04-05 17:05] VITALS: BP 126/66; PULSE 101
[2024-04-05 17:09] LABS: Alanine Aminotransferase 12 U/L (6-35); Albumin Level 3.3 g/dL (3.5-5.1); Alkaline Phosphatase 73 U/L (38-126); Anion Gap 10 mmol/L (4-12); Aspartate Amino Transferase 15 U/L (14-36); Bilirubin,Total 0.3 mg/dL (0.2-1.3); Blood Urea Nitrogen 12 mg/dL (7-17); Carbon Dioxide 18 mmol/L (22-30); Chloride 107 mmol/L (98-107); Estimated Glomerular Filt Rate > 60; Glucose 89 mg/dL (65-110); Potassium 3.6 mmol/L (3.4-5.0); Sodium 135 mmol/L (137-145); Uric Acid 3.7 mg/dL (2.5-7.5)
[2024-04-05 17:12] LABS: Creatinine Urine 266.6 mg/dL; Total Protein Urine Random 13 mg/dL; Ur Ttl Prot Creatinine Ratio 0.05 mg/mg (0-0.20)
--- NOTE | 2024-04-05 17:31 | PC.NURSE ---
Dr. Cheng updated on labs. MD okay with pt going home. Pt to see MD in the office at her normal appointment. If symptoms get worse to come back in and be checked out.
== END 2024-04-05 17:32 | disposition home or self-care (01) ==
LOC: ANHOBOP 15:44 → ANHOBPP 15:46
PROVIDERS: Visit Provider Obstetrics & Gynecology
DX: O13.9 Gestational [pregnancy-induced] hypertension without significant proteinuria, unspecified trimester (principal); Z3A.00 Weeks of gestation of pregnancy not specified
CPT/HCPCS: 36415; 59025; 80053; 81001; 82570; 84156; 84550; 85025; 99199

== ENCOUNTER 2024-06-03 13:51 | Observation (INO) | payer BC, SELFPAY ==
--- OUTSIDE RECORDS SUMMARY | 2024-06-03 13:56 | XMS_ITS | Encounter Summary ---
Author Organization [facility] Address [address] 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
--- OUTSIDE RECORDS SUMMARY | 2024-06-03 13:56 | XMS_ITS | Encounter Summary ---
Author Organization [facility] Address [address] 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 No / Unsure 04/13/2021 9:52 AM MUSEUM LIBRARIAN documented as of this encounter Miscellaneous Notes [...] 1. Testing is recommended- go online to [employer] for testing locations, utilize [employer] toschedule testing, or use the [employer] tana on your smart phone to locate [...] guidance and will make changes as necessary UM LIBRARIAN documented in this encounter Plan of Treatment Not on file documented as of this encounter Visit Diagnoses Not on filedocumented in this encounter Additional Health Concerns Infection Onset Date Last Indicated Resolved Time COVID - 19 12/21/2022 12/21/2022 12/31/2022 12:1 6 AM MUSEUM LIBRARIAN Assessment Noted Time PHQ-9 Depression Total Score: 10 020 9:19 AM CDT documented as of this encounter Care Teams Director Of Public Health Relationship Specialty Start Date End Date Enrrique Ordonez MD PCP - General Family Medicine 08/03/19 10/12/23 Rohit Hodgson, LINK TRAINER TEACHER, MILITARY EXCHANGE WIRELESS MANAGER #[address] [address] PCP - General Advanced Practice Nurse 10/14/23 documented as of this encounter
--- OUTSIDE RECORDS SUMMARY | 2024-06-03 13:56 | XMS_ITS | Encounter Summary ---
Author Organization [facility] Address [address] 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
--- OUTSIDE RECORDS SUMMARY | 2024-06-03 13:56 | XMS_ITS | Encounter Summary ---
Author Organization [facility] Address [address] 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 Pharm/meds/allergies/address verified First positive answer [...] 19 12/21/2022 12/21/2022 12/31/2022 12:1 6 AM ADMINISTRATIVE ASSISTANT COORDINATOR Assessment Noted Time PHQ-9 Depression Total Score: 10 020 9:19 AM CDT documented as of this encounter Care Teams Volunteer Services Manager Relationship Specialty Start Date End Date Enrrique Ordonez MD PCP - General Family Medicine 08/03/19 10/12/23 Rohit Hodgson, LAWN MAINTENANCE WORKER, LENS POLISHER HAND [address] [place] [address] PCP - General Advanced Practice Nurse 10/14/23 documented as of this encounter
--- OUTSIDE RECORDS SUMMARY | 2024-06-03 13:56 | XMS_ITS | Clinical Summary ---
Author Organization [facility] Address [address] [place] [address] Phone Care Team Providers Care Natural Science Manager Name Role Phone Rohit Hodgson APRN, CNP [...] up to follow a psychiatrist through the [facility] service, if they haven't already been following [...] oz pur e alcohol) Quit in 2018 [facility] Utilities Answer Date Recorded In the past 12 months has [employer], gas, oil, or water company threatened to [...] week 04/20/2023 How often do you attend formerly [facility] or restorationist services? 1 to 4 times per year 04/20/2023 Do you belong to any clubs o r organizations such as gnosticist groups, unions, fraternal or athletic groups, or [...] Total Score - Questions 1-9 10 07/22 [facility] - Occupational [...] place to sleep or slept in a assisted (including now)? 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 [...] Priority Date/Time Associated Diagnosis Comments PATHOLOGY CYTOLOGY ELECTRON BEAM MACHINE WELDER SETTER Routine 10/10/2018 from Last 3 Months or Most Recently Relevant to Health Maintenance Results * PATHOLOGY CYTOLOGY ELECTRON BEAM MACHINE WELDER SETTER (10/10/2018) Other Alissa Schultz MD PATHOLOGY/CYTOLOGY ORDER DENNIS Final Result from Last 3 Months or Most Recently Relevant to Health Maintenance [place] [place] [address] [facility] Care Teams Natural Science Manager Relationship Specialty Start Date End Date Rohit Hodgson, DEBURRER, DEVELOPER SUPPORT ENGINEER [address] [place] [id number] PCP - General Advanced Practice Nurse 10/14/23
--- OUTSIDE RECORDS SUMMARY | 2024-06-03 13:57 | XMS_ITS | Encounter Summary ---
Author Organization [facility] Address [address] 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 No / Unsure 03/20/2021 10:09 AM COMPOSITE ASSEMBLER documented as of this encounter Miscellaneous Notes [...] 90 days and meeting all other requirements OSITE ASSEMBLER documented in this encounter Plan of Treatment Not on file documented as of this encounter Visit Diagnoses Diagnosis Neuropathy Mononeuritis of unspecified site documented in this encounter Additional Health Concerns Infection Onset Date Last Indicated Resolved Time COVID - 19 12/21/2022 12/21/2022 12/31/2022 12:1 6 AM COMPOSITE ASSEMBLER Assessment Noted Time PHQ-9 Depression Total Score: 10 020 9:19 AM CDT documented as of this encounter Care Teams Recovery Engineer Relationship Specialty Start Date End Date Enrrique Ordonez MD PCP - General Family Medicine 08/03/19 10/12/23 Rohit Hodgson APRN, COMPOSITION BOARD PRESS OPERATOR #[address] [address] PCP - General Advanced Practice Nurse 10/14/23 documented as of this encounter
--- OUTSIDE RECORDS SUMMARY | 2024-06-03 13:57 | XMS_ITS | Encounter Summary ---
Author Organization [facility] Address [address] 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 Not on file Not on file documented as of this encounter Plan of Treatment Not on file documented as of this encounter Visit Diagnoses Diagnosis Neuropathy Mononeuritis of unspecified site documented in this encounter Additional Health Concerns Infection Onset Date Last Indicated Resolved Time COVID - 19 12/21/2022 12/21/2022 12/31/2022 12:1 6 AM SAFETY INVESTIGATOR/CAUSE ANALYST Assessment Noted Time PHQ-9 Depression Total Score: 10 020 9:19 AM CDT documented as of this encounter Care Teams Lay Midwife Relationship Specialty Start Date End Date Enrrique Ordonez MD PCP - General Family Medicine 08/03/19 10/12/23 Rohit Hodgson, CROSSING WATCHMAN, INFECTION CONTROL MANAGER #[address] [address] PCP - General Advanced Practice Nurse 10/14/23 documented as of this encounter
--- OUTSIDE RECORDS SUMMARY | 2024-06-03 13:57 | XMS_ITS | Encounter Summary ---
Author Organization [facility] Address [address] 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
--- OUTSIDE RECORDS SUMMARY | 2024-06-03 13:57 | XMS_ITS | Encounter Summary ---
Author Organization [facility] Address [address] 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 Not on file Not [...] Dept 04/26/22 Telemedicine Rohit Hodgson APRN, EMMANUEL [facility] [place] 02/01/22 Office Visit Enrrique Ordonez MD [facility] 01/04/22 Office Visit Enrrique Ordonez MD [facility] 12/07/21 Office Visit Enrrique Ordonez MD [facility] 11/09/21 Office Visit Enrrique Ordonez MD [facility] [place] Showing recent visits within past 365 [...] 19 12/21/2022 12/21/2022 12/31/2022 12:1 6 AM COST AND RISK ANALYSIS MANAGER Assessment Noted Time PHQ-9 Depression Total Score: 10 020 9:19 AM CDT documented as of this encounter Care Teams New Business Clerk Relationship Specialty Start Date End Date Enrrique Ordonez MD PCP - General Family Medicine 08/03/19 10/12/23 Rohit Hodgson APRN, SHIRT SEWER [address]2 [place] [address] PCP - General Advanced Practice Nurse 10/14/23 documented as of this encounter
--- OUTSIDE RECORDS SUMMARY | 2024-06-03 13:57 | XMS_ITS | Encounter Summary ---
Author Organization [facility] Address [address] 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 on file Not [...] days Pharmacy preference for this medication: [facility] Outcome: [x]Medication pended, routed to surescripts []Medication [...] 19 03/10/2020 03/10/2020 03/13/2020 10:0 5 PM RAILROAD CONDUCTOR COVID - 19 09/23/2020 09/23/2020 09/24/2020 9:09 AM CDT COVID - 19 Confirmed 03/07/2021 03/07/2021 022 12:16 AM RAILROAD CONDUCTOR COVID - 19 12/21/2022 12/21/2022 12/31/2022 12:1 6 AM RAILROAD CONDUCTOR Assessment Noted Time PHQ-9 Depression Total Score: 10 020 9:19 AM CDT documented as of this encounter Care Teams Assembly Worker Relationship Specialty Start Date End Date Enrrique Ordonez MD PCP - General Family Medicine 08/03/19 10/12/23 Rohit Hodgson, CARLINE, MOBILE GAME ENGINEER [address] [place] [address] PCP - General Advanced Practice Nurse 10/14/23 documented as of this encounter
--- OUTSIDE RECORDS SUMMARY | 2024-06-03 13:57 | XMS_ITS | Encounter Summary ---
Author Organization [facility] Address [address] 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 file Not [...] [place] 12/10/20 Office Visit Enrrique Ordonez MD [facility] [place] Showing recent visits within past 365 [...] 19 12/21/2022 12/21/2022 12/31/2022 12:1 6 AM SPOOL HAULER Assessment Noted Time PHQ-9 Depression Total Score: 10 020 9:19 AM CDT documented as of this encounter Care Teams Packaging Machine Supplies Distributor Relationship Specialty Start Date End Date Enrrique Ordonez MD PCP - General Family Medicine 08/03/19 10/12/23 Rohit Hodgson APRN, CELL POURER [address] [address] PCP - General Advanced Practice Nurse 10/14/23 documented as of this encounter
--- OUTSIDE RECORDS SUMMARY | 2024-06-03 13:57 | XMS_ITS | Encounter Summary ---
Author Organization [facility] Address [address] 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
--- OUTSIDE RECORDS SUMMARY | 2024-06-03 13:57 | XMS_ITS | Encounter Summary ---
Author Organization [facility] Address [address] [place] [address] Phone Care Team Providers Care Operations Accountant Name Role Phone Enrrique Ordonez MD Primary Care Provider [phone] Rohit Hodgson APRN PRIMARY CARE PHYSICIAN Primary Care Pr ovider Reason for Visit * Reason Onset Date Comments Medication Refill Medication Refill 10/28/2020 Medication Refill 10/30/2020 Encounter Details Date Type Department Care Team (Late st Contact Info) Description 10/24/2020 Refill [facility] - Family Medicine [facility] [address]2 [place] [address] Enrrique Ordonez MD [address] [place] [address] Medication Refill; Medication Refill; Medication Refill Social [...] 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
--- OUTSIDE RECORDS SUMMARY | 2024-06-03 13:57 | XMS_ITS | Encounter Summary ---
Author Organization [facility] Address [address] 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
--- OUTSIDE RECORDS SUMMARY | 2024-06-03 13:57 | XMS_ITS | Encounter Summary ---
Author Organization [facility] Address [address] 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
[2024-06-03 14:15] VITALS: BP 120/65; PULSE 103
[2024-06-03 14:30] VITALS: BP 117/72; PULSE 100
[2024-06-03 14:45] VITALS: BP 119/71; PULSE 105
[2024-06-03 15:00] VITALS: BP 114/75; PULSE 107
--- NOTE | 2024-06-03 15:11 | PM.OBTRLD ---
OB - Triage/Final Diagnosis Visit Information Comments/Additional reasons for admission: I have assessed the risk for this patient, Adrienne Carcamo, and determined that she would benefit from observation care. Evaluation Vital signs: Vital Signs - 24 hr 06/03/24 14:15 06/03/24 14:30 06/03/24 14:45 Pulse Rate 103 H 100 105 H Blood Pressure 120/65 117/72 119/71 06/03/24 15:00 Pulse Rate 107 H Blood Pressure 114/75 Final Diagnosis (1) Fall from slip, trip, or stumble: Code(s): W01.0XXA - Fall on same level from slipping, tripping and stumbling without subsequent striking against object, initial encounter Status: Acute
--- NOTE | 2024-06-03 15:12 | OBADM ---
This patient, Adrienne Carcamo, admitted to the OB room OB Post 116 for observation. Patient/family oriented to hospital policies and general routines including ID bracelet, bed and alarms, visiting hours, pain management, procedures, bathroom and other care routines, personal items, smoking policy, room service/diet, and visiting hours. Patient/Family are encouraged to report perceived risks to care and to ask questions if they do not understand what they are told or what they should do.
[2024-06-03 15:16] VITALS: BP 102/56; PULSE 104
== END 2024-06-03 16:09 | disposition home or self-care (01) ==
PROVIDERS: Admitting Provider Obstetrics & Gynecology; Visit Provider Obstetrics & Gynecology
DX: O26.893 Other specified pregnancy related conditions, third trimester (principal); W01.0XXA Fall on same level from slipping, tripping and stumbling without subsequent striking against object, initial encounter; Z3A.37 37 weeks gestation of pregnancy
CPT/HCPCS: G0378; G0379

== ENCOUNTER 2024-06-13 22:27 | Outpatient (CLI) | payer BC, MEDICAID, SELFPAY ==
[2024-06-13] VITALS (18 sets, daily range): BP systolic 136–140; BP diastolic 78–87; PULSE 85–111; O2SAT 95–100; BMI 43.1
--- NOTE | 2024-06-13 22:27 | PC.NURSE ---
Pt arrives to unit with elevated blood pressures at home, headache, blurred vision, and swelling.
--- OUTSIDE RECORDS SUMMARY | 2024-06-13 22:34 | XMS_ITS | Clinical Summary ---
Author Organization [facility] Address [address] [place] [address] Phone Care Team Providers Care Template Reproduction Technician Name Role Phone Rohit Hodgson APRN, CNP [...] up to follow a psychiatrist through the [facility] service, if they haven't already been following [...] oz pur e alcohol) Quit in 2018 [facility] Utilities Answer Date Recorded In the past 12 months has [employer], gas, oil, or water company threatened to [...] How often do you attend [facility] or gnosticist services? 1 to 4 times per year 04/20/2023 Do you belong to any clubs o r organizations such as anglican groups, unions, fraternal or athletic groups, or [...] Total Score - Questions 1-9 10 07/22 [facility] - Occupational [...] place to sleep or slept in a senior care (including now)? 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 Not [...] Priority Date/Time Associated Diagnosis Comments PATHOLOGY CYTOLOGY TROUBLE TRACER Routine 10/10/2018 from Last 3 Months or Most Recently Relevant to Health Maintenance Results * PATHOLOGY CYTOLOGY TROUBLE TRACER (10/10/2018) Other Alissa Schultz MD PATHOLOGY/CYTOLOGY ORDER DENNIS Final Result from Last 3 Months or Most Recently Relevant to Health [place] [address] [place] [address] [facility] Care Teams Template Reproduction Technician Relationship Specialty Start Date End Date Rohit Hodgson, CALL TAKER, UPPER CASER [address] [place] [id number] PCP - General Advanced Practice Nurse 10/14/23
--- OUTSIDE RECORDS SUMMARY | 2024-06-13 22:34 | XMS_ITS | Encounter Summary ---
Author Organization [facility] Address [address] [place] [address] Phone Care Team Providers Care Beef Ribber Name Role Phone Enrrique Ordonez MD Primary Care Provider [phone] Rohit Hodgson APRN, CNP Primary Care Pr ovider Reason for Visit * Reason Onset Date Comments Foot Pain 05/29/2021 Encounter Details Date Type Department Care Team (Late st Contact Info) Description 05/29/2021 Nurse Triage [facility] Medical [facility] - Family 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 Pharm/meds/allergies/address verified First positive answer [...] 19 12/21/2022 12/21/2022 12/31/2022 12:1 6 AM PULP MILL SUPERVISOR Assessment Noted Time PHQ-9 Depression Total Score: 10 020 9:19 AM CDT documented as of this encounter Care Teams Beef Ribber Relationship Specialty Start Date End Date Enrrique Ordonez MD PCP - General Family Medicine 08/03/19 10/12/23 Rohit Hodgson, ADVISORY INTERN, COATING AND BAKING OPERATOR [address] [place] [address] PCP - General Advanced Practice Nurse 10/14/23 documented as of this encounter
--- OUTSIDE RECORDS SUMMARY | 2024-06-13 22:34 | XMS_ITS | Encounter Summary ---
Author Organization [facility] Address [address] [facility] 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 No / Unsure 04/13/2021 9:52 AM CERTIFIED PERSONAL FINANCE COUNSELOR documented as of this encounter Miscellaneous Notes [...] 1. Testing is recommended- go online to [employer] for testing locations, utilize [employer] toschedule testing, or use the [employer] tana on your smart phone to locate [...] guidance and will make changes as necessary IFIED PERSONAL FINANCE COUNSELOR documented in this encounter Plan of Treatment Not on file documented as of this encounter Visit Diagnoses Not on filedocumented in this encounter Additional Health Concerns Infection Onset Date Last Indicated Resolved Time COVID - 19 12/21/2022 12/21/2022 12/31/2022 12:1 6 AM CERTIFIED PERSONAL FINANCE COUNSELOR Assessment Noted Time PHQ-9 Depression Total Score: 10 020 9:19 AM CDT documented as of this encounter Care Teams Class A Regional Drivers Relationship Specialty Start Date End Date Enrrique Ordonez MD PCP - General Family Medicine 08/03/19 10/12/23 Rohit Hodgson, WELL SERVICE FLOOR WORKER, MICA INSPECTOR #[address] [address] PCP - General Advanced Practice Nurse 10/14/23 documented as of this encounter
--- OUTSIDE RECORDS SUMMARY | 2024-06-13 22:34 | XMS_ITS | Encounter Summary ---
Author Organization [facility] Address [address] 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
--- OUTSIDE RECORDS SUMMARY | 2024-06-13 22:34 | XMS_ITS | Encounter Summary ---
Author Organization [facility] Address [address] 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
--- OUTSIDE RECORDS SUMMARY | 2024-06-13 22:34 | XMS_ITS | Encounter Summary ---
Author Organization [facility] Address [address] 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
--- OUTSIDE RECORDS SUMMARY | 2024-06-13 22:34 | XMS_ITS | Encounter Summary ---
Author Organization [facility] Address [address] 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 [...] [place] 12/10/20 Office Visit Enrrique Ordonez MD [facility] [place] Showing recent visits [...] 19 12/21/2022 12/21/2022 12/31/2022 12:1 6 AM OPERATIONS AND MAINTENANCE TECHNICAN Assessment Noted Time PHQ-9 Depression Total Score: 10 020 9:19 AM CDT documented as of this encounter Care Teams Calender Roll Operator Relationship Specialty Start Date End Date Enrrique Ordonez MD PCP - General Family Medicine 08/03/19 10/12/23 Rohit Hodgson APRN, PARALEGALS #[address] [address] PCP - General Advanced Practice Nurse 10/14/23 documented as of this encounter
--- OUTSIDE RECORDS SUMMARY | 2024-06-13 22:34 | XMS_ITS | Encounter Summary ---
Author Organization [facility] Address [address] 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 Not on file documented as of this encounter Plan of Treatment Not on file documented as of this encounter Visit Diagnoses Diagnosis Neuropathy Mononeuritis of unspecified site documented in this encounter Additional Health Concerns Infection Onset Date Last Indicated Resolved Time COVID - 19 12/21/2022 12/21/2022 12/31/2022 12:1 6 AM DEFENSIVE LINE COACH Assessment Noted Time PHQ-9 Depression Total Score: 10 020 9:19 AM CDT documented as of this encounter Care Teams Undercollar Baster Relationship Specialty Start Date End Date Enrrique Ordonez MD PCP - General Family Medicine 08/03/19 10/12/23 Rohit Hodgson, PATIENT ACCESS SPECIALIST, SALES PROMOTION DIRECTOR #[address] [address] PCP - General Advanced Practice Nurse 10/14/23 documented as of this encounter
--- OUTSIDE RECORDS SUMMARY | 2024-06-13 22:34 | XMS_ITS | Encounter Summary ---
Author Organization [facility] Address [address] 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
--- OUTSIDE RECORDS SUMMARY | 2024-06-13 22:34 | XMS_ITS | Encounter Summary ---
Author Organization [facility] Address [address] 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 * Telephone Encounter - Hleen Bradford RN - 07/24/2021 4:16 PM CDT Duplicate request, original sent to PCP documented in this encounter Plan of Treatment Not on file documented as of this encounter Visit Diagnoses Diagnosis Neuropathy Mononeuritis of unspecified site documented in this encounter Additional Health Concerns Infection Onset Date Last Indicated Resolved Time COVID - 19 12/21/2022 12/21/2022 12/31/2022 12:1 6 AM TOOL AND CUTTER GRINDER Assessment Noted Time PHQ-9 Depression Total Score: 10 08/02/ 020 9:19 AM CDT documented as of this encounter Care Teams Canvas Baster Relationship Specialty Start Date End Date Enrrique Ordonez MD PCP - General Family Medicine 08/03/19 10/12/23 Rohit Hodgson, BIODIESEL PROCESSING TECHNICIAN, SENIOR CLINICAL PROJECT MANAGER #[address] [address] PCP - General Advanced Practice Nurse 10/14/23 documented as of this encounter
--- OUTSIDE RECORDS SUMMARY | 2024-06-13 22:35 | XMS_ITS | Encounter Summary ---
Author Organization [facility] Address [address] 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 No / Unsure 03/20/2021 10:09 AM SAP TREASURY CONSULTANT documented as of this encounter Miscellaneous Notes [...] 90 days and meeting all other requirements TREASURY CONSULTANT documented in this encounter Plan of Treatment Not on file documented as of this encounter Visit Diagnoses Diagnosis Neuropathy Mononeuritis of unspecified site documented in this encounter Additional Health Concerns Infection Onset Date Last Indicated Resolved Time COVID - 19 12/21/2022 12/21/2022 12/31/2022 12:1 6 AM SAP TREASURY CONSULTANT Assessment Noted Time PHQ-9 Depression Total Score: 10 020 9:19 AM CDT documented as of this encounter Care Teams Medical Laboratory Specialist Relationship Specialty Start Date End Date Enrrique Ordonez MD PCP - General Family Medicine 08/03/19 10/12/23 Rohit Hodgson APRN, PRESS OFFICER #[address] [address] PCP - General Advanced Practice Nurse 10/14/23 documented as of this encounter
--- OUTSIDE RECORDS SUMMARY | 2024-06-13 22:35 | XMS_ITS | Encounter Summary ---
Author Organization [facility] Address [address] [place] [address] Phone Care Team Providers Care Direct Support Staff Name Role Phone Enrrique Ordonez MD Primary Care Provider [phone] Rohit Hodgson APRN CHIP MACHINE OPERATOR Primary Care Pr ovider Reason for Visit * Reason Onset Date Comments Medication Refill Medication Refill 10/28/2020 Medication Refill 10/30/2020 Encounter Details Date Type Department Care Team (Late st Contact Info) Description 10/24/2020 Refill 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
--- OUTSIDE RECORDS SUMMARY | 2024-06-13 22:35 | XMS_ITS | Encounter Summary ---
Author Organization [facility] Address [address] [place] [address] Phone Care Team Providers Care Floor Mechanic Name Role Phone Enrrique Ordonez MD Primary Care Provider [phone] Rohit Hodgson APRN, HOSPITALITY SERVICES MANAGER Primary Care Pr ovider Reason for Visit * Reason Comments Medication Refill Encounter Details Date Type Department Care Team (Late st Contact Info) Description 12/21/2022 Refill [facility] Medical [facility] - Family Medicine [facility] [address]2 [place] [address] Rosie Velez APRN, HOSPITALITY SERVICES MANAGER [address] [place] [address] Medication Refill Social History Tobacco Use Types [...] 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
--- OUTSIDE RECORDS SUMMARY | 2024-06-13 22:35 | XMS_ITS | Encounter Summary ---
Author Organization [facility] Address [address] 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 Not [...] Dept 04/26/22 Telemedicine Rohit Hodgson APRN, EMMANUEL [facility] [place] 02/01/22 Office Visit Enrrique Ordonez MD [facility] 01/04/22 Office Visit Enrrique Ordonez MD [facility] 12/07/21 Office Visit Enrrique Ordonez MD [facility] 11/09/21 Office Visit Enrrique Ordonez MD [facility] [place] Showing recent visits within past 365 [...] 19 12/21/2022 12/21/2022 12/31/2022 12:1 6 AM REHAB OFFICE COORDINATOR Assessment Noted Time PHQ-9 Depression Total Score: 10 020 9:19 AM CDT documented as of this encounter Care Teams Boating Safety Officer Relationship Specialty Start Date End Date Enrrique Ordonez MD PCP - General Family Medicine 08/03/19 10/12/23 Rohit Hodgson APRN, INSURANCE AGENTS SUPERVISOR [address] [place] [address] PCP - General Advanced Practice Nurse 10/14/23 documented as of this encounter
--- OUTSIDE RECORDS SUMMARY | 2024-06-13 22:35 | XMS_ITS | Encounter Summary ---
Author Organization [facility] Address [address] 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 on file [...] days Pharm[facility] preference for this medication[facility] [place] [facility] Outcome: [x]Medication pended, routed to surescripts []Medication [...] 19 03/10/2020 03/10/2020 03/13/2020 10:0 5 PM TOBACCO PACKER COVID - 19 09/23/2020 09/23/2020 09/24/2020 9:09 AM CDT COVID - 19 Confirmed 03/07/2021 03/07/2021 022 12:16 AM TOBACCO PACKER COVID - 19 12/21/2022 12/21/2022 12/31/2022 12:1 6 AM TOBACCO PACKER Assessment Noted Time PHQ-9 Depression Total Score: 10 020 9:19 AM CDT documented as of this encounter Care Teams Monument Erector Relationship Specialty Start Date End Date Enrrique Ordonez MD PCP - General Family Medicine 08/03/19 10/12/23 Rohit Hodgson, CARILNE, GAME OPERATOR [address] [place] [address] PCP - General Advanced Practice Nurse 10/14/23 documented as of this encounter
[2024-06-14] VITALS: BP 131/81; PULSE 86
[2024-06-14 00:01] LABS: Basophils Percent Auto 0.2 % (0.2-1.2); Eosinophils Absolute Auto 0.1 K/mm3 (0-0.3); Eosinophils Percent Auto 0.9 % (0-4.4); Hematocrit 29.9 % (37.0-47.0); Hemoglobin 9.6 g/dL (12.0-15.0); Immature Granulocyte Absolute 0.04 K/mm3 (0.00-0.031); Immature Granulocyte Percent A 0.4 % (0-0.5); Lymphocytes Absolute Auto 1.65 K/mm3 (0.9-3.2); Lymphocytes Percent Auto 15.6 % (18.3-44.2); Mean Corpuscular HGB Conc 32.1 g/dl (32-36); Mean Corpuscular Hemoglobin 27.8 pg (26-34); Mean Corpuscular Volume 86.7 fl (80-100); Mean Platelet Volume 10.1 fl (7.4-10.4); Monocytes Absolute Auto 0.8 K/mm3 (0.1-0.6); Monocytes Percent Auto 7.1 % (2.6-8.5); Neutrophils Absolute Auto 8.1 K/mm3 (1.3-6.7); Neutrophils Percent Auto 75.8 % (45.5-73.1); Platelet Count Result 264 k/mm3 (150-375); Red Blood Count 3.45 M/mm3 (4.2-5.4); Red Cell Distribution Width 13.7 % (11.5-14.5); White Blood Count 10.6 K/mm3 (4.5-10.0)
[2024-06-14 00:04] VITALS: PULSE 94; O2SAT 98
[2024-06-14 00:07] LABS: Add Urine Microscopic? YES; Appearance Urine Clear (Clear); Bacteria Urine None Seen /hpf; Bilirubin Urine Negative (Negative); Blood Urine Negative (Negative); Color Urine Yellow (Yellow); Glucose Urine UA Negative (Negative); Ketones Urine Negative (Negative); Leukocyte Esterase Ur Trace LEU/UL (Negative); Nitrate Urine Negative (Negative); Non Pathogenic Casts 0-2; Protein Urine Negative (Negative); RBC Urine 0-2 /hpf (0-2); Specific Grav Ur 1.018 (1.001-1.035); Squamous Epithelial Cell Urine Occasional /hpf (Few); Urobilinogen Urine 0.2 mg/dL (<2.0); WBC Urine 0-5 /hpf (0-3); pH Urine 6.5 (5.0-9.0)
[2024-06-14 00:08] LABS: Creatinine Urine 81.3 mg/dL; Total Protein Urine Random 21 mg/dL; Ur Ttl Prot Creatinine Ratio 0.26 mg/mg (0-0.20)
[2024-06-14 00:09] VITALS: PULSE 94; O2SAT 98
[2024-06-14 00:14] VITALS: PULSE 104; O2SAT 99
[2024-06-14 00:14] LABS: Alanine Aminotransferase 12 U/L (6-35); Albumin Level 3.2 g/dL (3.5-5.1); Alkaline Phosphatase 117 U/L (38-126); Anion Gap 11 mmol/L (4-12); Aspartate Amino Transferase 16 U/L (14-36); Bilirubin,Total 0.1 mg/dL (0.2-1.3); Blood Urea Nitrogen 9 mg/dL (7-17); Carbon Dioxide 18 mmol/L (22-30); Chloride 106 mmol/L (98-107); Estimated CRCL calculation 205 ml/min; Estimated Glomerular Filt Rate > 60; Glucose 117 mg/dL (65-110); Potassium 3.6 mmol/L (3.4-5.0); Sodium 135 mmol/L (137-145); Uric Acid 4.1 mg/dL (2.5-7.5)
--- NOTE | 2024-06-14 00:18 | PC.NURSE ---
Called Dr. Gallagher, update on pt, elevated blood pressure at home, headache, blurred vision, swelling, decreased movement, blood pressure, tracing, marking movement, tracing, and labs. Orders received to discharge pt with instructions to take Tylenol 1000 mg as needed for headache, keep next scheduled appointment, and when to return to the unit.
[2024-06-14 00:19] VITALS: PULSE 98; O2SAT 99
[2024-06-14 00:22] VITALS: BP 136/87; PULSE 95
--- NOTE | 2024-06-14 00:28 | PC.NURSE ---
Pt discharged with instructions to take Tylenol 1000 mg as needed for headache, keep next scheduled appointment, and when to return to the unit, pt verbalizes understanding.
== END 2024-06-14 00:28 | disposition home or self-care (01) ==
LOC: ANHOBOP 22:32 → ANHOBPP 22:33
PROVIDERS: Visit Provider Student in an Organized Health Care Education/Training Program
DX: O13.9 Gestational [pregnancy-induced] hypertension without significant proteinuria, unspecified trimester (principal); Z3A.00 Weeks of gestation of pregnancy not specified
CPT/HCPCS: 36415; 59025; 80053; 81001; 82570; 84156; 84550; 85025

== ENCOUNTER 2024-06-18 15:19 | Outpatient (CLI) | payer BC, MEDICAID, SELFPAY ==
--- NOTE | ~2024-06-18 | US_ITS ---
LIMITED OBSTETRIC ULTRASOUND/BIOPHYSICAL PROFILE Ordering provider: Jun Delgado MD History: . growth scan . Comparison: None. FINDINGS: MATERNAL CERVIX: Not visualized. PRESENTATION: Vertex Longitudinal lie. PLACENTAL LOCATION: Anterior No previa. HEART RATE: 137 bpm (normal is between 110 to 160 bpm). AMNIOTIC FLUID INDEX: 13.37 cm. 5th percentile is 7.2cm . 95th percentile is 22.6 cm. Largest vertic al pocket is 8.54 cm. normal (ROBERT between 5-25 cm in from 20-35 weeks gestation is considered normal) . Number of fetuses: BIOMETRY: BPD: 9.73 cm (39weeks 6 days) HC: 36.41 cm out of range. AC: 37.17 cm (41 weeks 1 days) FL: 7.47 cm (38 weeks 1 days) Parametric ratios: Today's average US gestational age: 39 weeks 5 days Today's EDC: June 20, 2024 Estimated weight: 4142 gm. Rank: EFW/GP 90.9%. ROBERT: 13.33 CI: 75.78 HC/AC: 0.98 FL/BPD: 76.77 FL/AC: 20.1 OTHER: Maternal ovaries not visualized. SCORE: breathing movements: 2 movements: 2 tone: 2 Amniotic fluid volume: 2 Total: 8 IMPRESSION: Normal biophysical profile. Single live fetus of cephalic presentation. Reviewed, dictated and finalized at location A.
[2024-06-18 15:28] VITALS: PULSE 117; BMI 43.1
[2024-06-18 15:39] VITALS: BP 118/73; PULSE 112
[2024-06-18 15:46] VITALS: BP 123/74; PULSE 102
[2024-06-18 16:00] VITALS: BP 132/72; PULSE 104
--- NOTE | 2024-06-18 16:06 | PC.NURSE ---
Called Dr. Delgado to notify of pt. admission. Orders received for NST BPP with growth.
--- NOTE | 2024-06-18 16:55 | PC.NURSE ---
Called Dr. Cheng with US results as Danny is psychosocial rehabilitation counselor. Order received to Call Dr. Delgado directly for him to determine plan of care.
--- NOTE | 2024-06-18 16:59 | PC.NURSE ---
Dr. Delgado Exchange number called with request for call back on if pt. can dc or needs to be admitted.
--- NOTE | 2024-06-18 17:14 | PC.NURSE ---
Dr. Delgado returned call. Discussed 90.9th percentile for growth, BPP 09/28 and ROBERT 13.33. Given order to dc pt. home to self care and to plan for induction on tuesday 06/20. If pt. elects to have a she will need to call the office to set up the surgery.
--- OUTSIDE RECORDS SUMMARY | 2024-06-18 17:33 | XMS_ITS | Encounter Summary ---
Author Organization [facility] Address [address] [place] [address] Phone Care Team Providers Care Apartment Assistant Manager Name Role Phone Enrrique Ordonez MD Primary Care Provider [phone] Rohit Hodgson APRN, ACTING INSTRUCTOR Primary Care Pr ovider Reason for Visit * Reason Comments Medication Refill Encounter Details Date Type Department Care Team (Late st Contact Info) Description 12/21/2022 Refill [facility] Medical Group - Family Medicine [facility] [address]2 [place] [address] Rosie Velez APRN, ACTING INSTRUCTOR [address] [place] [address] Medication Refill Social History Tobacco Use Types [...] 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
--- OUTSIDE RECORDS SUMMARY | 2024-06-18 17:33 | XMS_ITS | Encounter Summary ---
Author Organization [facility] Address [address] [facility] 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 No / Unsure 04/13/2021 9:52 AM AUDIT ASSOCIATE documented as of this encounter Miscellaneous [...] 1. Testing is recommended- go online to [employer] for testing locations, utilize VOIP Depoth[employer] toschedule testing, or use the [employer] tana on your smart phone to locate [...] guidance and will make changes as necessary T ASSOCIATE documented in this encounter Plan of Treatment Not on file documented as of this encounter Visit Diagnoses Not on filedocumented in this encounter Additional Health Concerns Infection Onset Date Last Indicated Resolved Time COVID - 19 12/21/2022 12/21/2022 12/31/2022 12:1 6 AM AUDIT ASSOCIATE Assessment Noted Time PHQ-9 Depression Total Score: 10 020 9:19 AM CDT documented as of this encounter Care Teams Clinical Operations Manager Relationship Specialty Start Date End Date Enrrique Ordonez MD PCP - General Family Medicine 08/03/19 10/12/23 Rohit Hodgson, CLEAT FEEDER, SEAM STEAMER [address] [address] PCP - General Advanced Practice Nurse 10/14/23 documented as of this encounter
--- OUTSIDE RECORDS SUMMARY | 2024-06-18 17:33 | XMS_ITS | Encounter Summary ---
Author Organization [facility] Address [address] 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 [place] 02/01/22 Office Visit Enrrique [...] 19 12/21/2022 12/21/2022 12/31/2022 12:1 6 AM STROKE PROGRAM COORDINATOR Assessment Noted Time PHQ-9 Depression Total Score: 10 020 9:19 AM CDT documented as of this encounter Care Teams Rocket Engine Tester Relationship Specialty Start Date End Date Enrrique Ordonez MD PCP - General Family Medicine 08/03/19 10/12/23 Rohit Hodgson APRN, SENIOR DIRECTOR [address] [place] [address] PCP - General Advanced Practice Nurse 10/14/23 documented as of this encounter
--- OUTSIDE RECORDS SUMMARY | 2024-06-18 17:33 | XMS_ITS | Encounter Summary ---
Author Organization [facility] Address [address] 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 Not [...] [facility] 07/01/20 Telemedicine Enrrique Ordonez MD [facility] Showing recent visits within past 365 days [...] 19 12/21/2022 12/21/2022 12/31/2022 12:1 6 AM DONOR CENTER TECHNICIAN Assessment Noted Time PHQ-9 Depression Total Score: 10 020 9:19 AM CDT documented as of this encounter Care Teams Electrocardiograph Operator Relationship Specialty Start Date End Date Enrrique Ordonez MD PCP - General Family Medicine 08/03/19 10/12/23 Rohit Hodgson APRN, OFFICE CLERK ROUTINE [address] [place] [address] PCP - General Advanced Practice Nurse 10/14/23 documented as of this encounter
--- OUTSIDE RECORDS SUMMARY | 2024-06-18 17:33 | XMS_ITS | Encounter Summary ---
Author Organization [facility] Address [address] [place] [address] Phone Care Team Providers Care Computer Forensics Analyst Name Role Phone Enrrique Ordonez MD Primary Care Provider [phone] Rohit Hodgson APRN MERCHANDISE EXECUTIVE Primary Care Pr ovider Reason for Visit * Reason Onset Date Comments Medication Refill Medication Refill 10/28/2020 Medication Refill 10/30/2020 Encounter Details Date Type Department Care Team (Late st Contact Info) Description 10/24/[address] [facility] - Family Medicine 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
--- OUTSIDE RECORDS SUMMARY | 2024-06-18 17:33 | XMS_ITS | Clinical Summary ---
Author Organization [facility] Address [address] [place] [address] Phone Care Team Providers Care Coding Team Lead Name Role Phone Rohit Hodgson APRN, CNP [...] up to follow a psychiatrist through the [facility] service, if they haven't already been [...] e alcohol) Quit in 2018 [facility] Utilities Answer Date Recorded In the past 12 months has [employer], gas, oil, or water company threatened to [...] 04/20/2023 How often do you attend [facility] or yazidi services? 1 to 4 times per year 04/20/2023 Do you belong to any clubs o r organizations such as faith groups, unions, fraternal or athletic groups, or [...] Total Score - Questions 1-9 10 07/22 [facility] - Occupational [...] place to sleep or slept in a snf (including now)? 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 [...] Priority Date/Time Associated Diagnosis Comments PATHOLOGY CYTOLOGY TELETYPE OR VARITYPE KEYBOARD OPERATOR Routine 10/10/2018 from Last 3 Months or Most Recently Relevant to Health Maintenance Results * PATHOLOGY CYTOLOGY TELETYPE OR VARITYPE KEYBOARD OPERATOR (10/10/2018) Other Alissa Schultz MD PATHOLOGY/CYTOLOGY ORDER DENNIS Final Result from Last 3 Months or Most Recently Relevant to Health Maintenance [place] [address] [place] [address] [facility] Care Teams Coding Team Lead Relationship Specialty Start Date End Date Rohit Hodgson, INSOLE STIFFENER, TRACK TEMPLATE MAKER [address] [place] [id number] PCP - General Advanced Practice Nurse 10/14/23
--- OUTSIDE RECORDS SUMMARY | 2024-06-18 17:33 | XMS_ITS | Encounter Summary ---
Author Organization [facility] Address [address] 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 on file Not [...] days [facility] Outcome: [x]Medication pended, routed to surescripts []Medication [...] 19 03/10/2020 03/10/2020 03/13/2020 10:0 5 PM SAND CARRIER COVID - 19 09/23/2020 09/23/2020 09/24/2020 9:09 AM CDT COVID - 19 Confirmed 03/07/2021 03/07/2021 022 12:16 AM SAND CARRIER COVID - 19 12/21/2022 12/21/2022 12/31/2022 12:1 6 AM SAND CARRIER Assessment Noted Time PHQ-9 Depression Total Score: 10 020 9:19 AM CDT documented as of this encounter Care Teams Decal Applier Relationship Specialty Start Date End Date Enrrique Ordonez MD PCP - General Family Medicine 08/03/19 10/12/23 Rohit Hodgson, CARLINE, COMPENSATOR WORKER [address] [place] [address] PCP - General Advanced Practice Nurse 10/14/23 documented as of this encounter
--- OUTSIDE RECORDS SUMMARY | 2024-06-18 17:33 | XMS_ITS | Encounter Summary ---
Author Organization [facility] Address [address] 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 No / Unsure 03/20/2021 10:09 AM STEAM FINISHER documented as of this encounter Miscellaneous Notes [...] 90 days and meeting all other requirements M FINISHER documented in this encounter Plan of Treatment Not on file documented as of this encounter Visit Diagnoses Diagnosis Neuropathy Mononeuritis of unspecified site documented in this encounter Additional Health Concerns Infection Onset Date Last Indicated Resolved Time COVID - 19 12/21/2022 12/21/2022 12/31/2022 12:1 6 AM STEAM FINISHER Assessment Noted Time PHQ-9 Depression Total Score: 10 020 9:19 AM CDT documented as of this encounter Care Teams Radio Mechanic Helper Relationship Specialty Start Date End Date Enrrique Ordonez MD PCP - General Family Medicine 08/03/19 10/12/23 Rohit Hodgson APRN, MASTER CONTROL TECHNICIAN #[address] [address] PCP - General Advanced Practice Nurse 10/14/23 documented as of this encounter
--- OUTSIDE RECORDS SUMMARY | 2024-06-18 17:33 | XMS_ITS | Encounter Summary ---
Author Organization [facility] Address [address] 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
--- OUTSIDE RECORDS SUMMARY | 2024-06-18 17:33 | XMS_ITS | Encounter Summary ---
Author Organization [facility] Address [address] 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 Pharm/meds/allergies/address verified First positive answer [...] 19 12/21/2022 12/21/2022 12/31/2022 12:1 6 AM BLENDER MACHINE OPERATOR Assessment Noted Time PHQ-9 Depression Total Score: 10 020 9:19 AM CDT documented as of this encounter Care Teams Central Office Maintainer Relationship Specialty Start Date End Date Enrrique Ordonez MD PCP - General Family Medicine 08/03/19 10/12/23 Rohit Hodgson, ENGINEERING MANAGER, PLATING TANK OPERATOR APPRENTICE #2 [place] [address] PCP - General Advanced Practice Nurse 10/14/23 documented as of this encounter
--- OUTSIDE RECORDS SUMMARY | 2024-06-18 17:33 | XMS_ITS | Encounter Summary ---
Author Organization [facility] Address [address] 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
--- OUTSIDE RECORDS SUMMARY | 2024-06-18 17:33 | XMS_ITS | Encounter Summary ---
Author Organization [facility] Address [address] 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
--- OUTSIDE RECORDS SUMMARY | 2024-06-18 17:33 | XMS_ITS | Encounter Summary ---
Author Organization [facility] Address [address] 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 Not on file documented as of this encounter Plan of Treatment Not on file documented as of this encounter Visit Diagnoses Diagnosis Neuropathy Mononeuritis of unspecified site documented in this encounter Additional Health Concerns Infection Onset Date Last Indicated Resolved Time COVID - 19 12/21/2022 12/21/2022 12/31/2022 12:1 6 AM UPHOLSTERY REPAIRER Assessment Noted Time PHQ-9 Depression Total Score: 10 020 9:19 AM CDT documented as of this encounter Care Teams Document Management Analyst Relationship Specialty Start Date End Date Enrrique Ordonez MD PCP - General Family Medicine 08/03/19 10/12/23 Rohit Hodgson, ENERGY AUDIT ADVISOR, LOCK TENDER CHIEF OPERATOR #[address] [address] PCP - General Advanced Practice Nurse 10/14/23 documented as of this encounter
--- OUTSIDE RECORDS SUMMARY | 2024-06-18 17:33 | XMS_ITS | Encounter Summary ---
Author Organization [facility] Address [address] [place] [address] Phone Care Team Providers Care Guitar Maker Hand Name Role Phone Enrrique Ordonez MD Primary Care Provider [phone] Rohit Hodgson APRN, CNP Primary Care Pr ovider Reason for Visit * Reason Comments Medication Refill Encounter Details Date Type Department Care Team (Late st Contact Info) Description 08/30/2021 Refill [facility] Medical Group - Family Medicine 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
--- OUTSIDE RECORDS SUMMARY | 2024-06-18 17:33 | XMS_ITS | Encounter Summary ---
Author Organization [facility] Address [address] 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
[2024-06-18 17:34] VITALS: BP 132/72; PULSE 104
== END 2024-06-18 17:20 | disposition home or self-care (01) ==
LOC: ANHOBOP 15:23 → ANHOBPP 15:24
PROVIDERS: Visit Provider Obstetrics & Gynecology
DX: O13.9 Gestational [pregnancy-induced] hypertension without significant proteinuria, unspecified trimester (principal); Z3A.00 Weeks of gestation of pregnancy not specified
CPT/HCPCS: 59025; 76816; 76819; 99199

== ENCOUNTER 2024-06-20 16:06 | Inpatient (IN) | payer MEDICAID, SELFPAY ==
[2024-06-20] VITALS (16 sets, daily range): BP systolic 122–142; BP diastolic 73–93; PULSE 85–100; RESP 20; TEMP 36.6–36.8; BMI 43.1
--- OUTSIDE RECORDS SUMMARY | 2024-06-20 16:37 | XMS_ITS | Encounter Summary ---
Author Organization [facility] Address [address] 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
--- OUTSIDE RECORDS SUMMARY | 2024-06-20 16:37 | XMS_ITS | Encounter Summary ---
Author Organization [facility] Address [address] 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 on file [...] days Pharmacy preference for this medication: [facility] Outcome: [x]Medication pended, routed to surescripts []Medication [...] 19 03/10/2020 03/10/2020 03/13/2020 10:0 5 PM LICENSED AIRCRAFT MAINTENANCE ENGINEER COVID - 19 09/23/2020 09/23/2020 09/24/2020 9:09 AM CDT COVID - 19 Confirmed 03/07/2021 03/07/2021 022 12:16 AM LICENSED AIRCRAFT MAINTENANCE ENGINEER COVID - 19 12/21/2022 12/21/2022 12/31/2022 12:1 6 AM LICENSED AIRCRAFT MAINTENANCE ENGINEER Assessment Noted Time PHQ-9 Depression Total Score: 10 020 9:19 AM CDT documented as of this encounter Care Teams Head Custodian Relationship Specialty Start Date End Date Enrrique Ordonez MD PCP - General Family Medicine 08/03/19 10/12/23 Rohit Hodgson, CARLINE, VICE PRESIDENT OF OPERATIONS [address]2 [place] [address] PCP - General Advanced Practice Nurse 10/14/23 documented as of this encounter
--- OUTSIDE RECORDS SUMMARY | 2024-06-20 16:37 | XMS_ITS | Encounter Summary ---
Author Organization [facility] Address [address] 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
--- OUTSIDE RECORDS SUMMARY | 2024-06-20 16:37 | XMS_ITS | Clinical Summary ---
Author Organization [facility] Address [address] [place] [address] Phone Care Team Providers Care Cheese Blender Name Role Phone Rohit Hodgson APRN, CNP [...] up to follow a psychiatrist through the [facility] service, if they haven't already been following [...] oz pur e alcohol) Quit in 2018 [facility] Utilities Answer Date Recorded In the past 12 months has [employer], gas, oil, or water company threatened to [...] week 04/20/2023 How often do you attend [facility] or scientologist services? 1 to 4 times per year 04/20/2023 Do you belong to any clubs o r organizations such as religious groups, unions, fraternal or athletic groups, or [...] Total Score - Questions 1-9 10 07/22 [facility] - Occupational [...] place to sleep or slept in a long-term (including now)? 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 on file [...] Priority Date/Time Associated Diagnosis Comments PATHOLOGY CYTOLOGY PLATEN GRINDER Routine 10/10/2018 from Last 3 Months or Most Recently Relevant to Health Maintenance Results * PATHOLOGY CYTOLOGY PLATEN GRINDER (10/10/2018) Other Alissa Schultz MD PATHOLOGY/CYTOLOGY ORDER DENNIS Final Result from Last 3 Months or Most Recently Relevant to Health Maintenance [place] [address] [place] [address] [facility] Care Teams Cheese Blender Relationship Specialty Start Date End Date Rohit Hodgson, TIP OUT WORKER, RESIDENT ADVISOR #[address] [place] [address] PCP - General Advanced Practice Nurse 10/14/23
--- OUTSIDE RECORDS SUMMARY | 2024-06-20 16:37 | XMS_ITS | Encounter Summary ---
Author Organization [facility] Address [address] 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
--- OUTSIDE RECORDS SUMMARY | 2024-06-20 16:37 | XMS_ITS | Encounter Summary ---
Author Organization [facility] Address [address] 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 on file Not [...] [place] 12/10/20 Office Visit Enrrique Ordonez MD [facility] [place] Showing recent visits within past 365 [...] 19 12/21/2022 12/21/2022 12/31/2022 12:1 6 AM GRAVITY PROSPECTING OBSERVER HELPER Assessment Noted Time PHQ-9 Depression Total Score: 10 020 9:19 AM CDT documented as of this encounter Care Teams Senior Cyber Intelligence Analyst Relationship Specialty Start Date End Date Enrrique Ordonez MD PCP - General Family Medicine 08/03/19 10/12/23 Rohit Hodgson APRN, MASK DESIGNER #[address] [place] [address] [address] PCP - General Advanced Practice Nurse 10/14/23 documented as of this encounter
--- OUTSIDE RECORDS SUMMARY | 2024-06-20 16:37 | XMS_ITS | Encounter Summary ---
Author Organization [facility] Address [address] [place] [address] Phone Care Team Providers Care Political Science Faculty Member Name Role Phone Enrrique Ordonez MD Primary Care Provider [phone] Rohit Hodgson APRN, CNP Primary Care Pr ovider Reason for Visit * Reason Comments Medication Refill Encounter Details Date Type Department Care Team (Late st Contact Info) Description 12/01/2021 Refill [facility] Medical Group - Family Medicine [facility] #2 [place] [phone] Enrrique Ordonez MD [address]1 [place] [address] Medication Refill Social History Tobacco Use Types [...] 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
--- OUTSIDE RECORDS SUMMARY | 2024-06-20 16:37 | XMS_ITS | Encounter Summary ---
Author Organization [facility] Address [address] 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
--- OUTSIDE RECORDS SUMMARY | 2024-06-20 16:37 | XMS_ITS | Encounter Summary ---
Author Organization [facility] Address [address] 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
--- OUTSIDE RECORDS SUMMARY | 2024-06-20 16:37 | XMS_ITS | Encounter Summary ---
Author Organization [facility] Address [address] 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 Not on file documented as of this encounter Plan of Treatment Not on file documented as of this encounter Visit Diagnoses Diagnosis Neuropathy Mononeuritis of unspecified site documented in this encounter Additional Health Concerns Infection Onset Date Last Indicated Resolved Time COVID - 19 12/21/2022 12/21/2022 12/31/2022 12:1 6 AM COPPER FLOTATION OPERATOR Assessment Noted Time PHQ-9 Depression Total Score: 10 020 9:19 AM CDT documented as of this encounter Care Teams Binding Printer Relationship Specialty Start Date End Date Enrrique Ordonez MD PCP - General Family Medicine 08/03/19 10/12/23 Rohit Hodgson, CEMENT CONVEYOR OPERATOR, BARREL POLISHER INSIDE #[address] [address] PCP - General Advanced Practice Nurse 10/14/23 documented as of this encounter
--- OUTSIDE RECORDS SUMMARY | 2024-06-20 16:37 | XMS_ITS | Encounter Summary ---
Author Organization [facility] Address [address] [place] [address] Phone Care Team Providers Care Support Services Coordinator Name Role Phone Enrrique Ordonez MD Primary Care Provider [phone] Rohit Hodgson APRN SENIOR ELECTRICAL PROJECT MANAGER Primary Care Pr ovider Reason for Visit * Reason Onset Date Comments Medication Refill Medication Refill 10/28/2020 Medication Refill 10/30/2020 Encounter Details Date Type Department Care Team (Late st Contact Info) Description 10/24/2020 Refill [facility] - Family Medicine [facility] [address] [place] [address] Enrrique Ordonez MD [address] [place] [address] Medication Refill; Medication Refill; Medication Refill Social [...] 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
--- OUTSIDE RECORDS SUMMARY | 2024-06-20 16:37 | XMS_ITS | Encounter Summary ---
Author Organization [facility] Address [address] [facility] 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 No / Unsure 04/13/2021 9:52 AM TRAINING CONSULTANT documented as of this encounter Miscellaneous [...] 1. Testing is recommended- go online to [email or web address] for testing locations, utilize [employer] toschedule testing, or use the [employer] tana on your smart phone to [...] guidance and will make changes as necessary NING CONSULTANT documented in this encounter Plan of Treatment Not on file documented as of this encounter Visit Diagnoses Not on filedocumented in this encounter Additional Health Concerns Infection Onset Date Last Indicated Resolved Time COVID - 19 12/21/2022 12/21/2022 12/31/2022 12:1 6 AM TRAINING CONSULTANT Assessment Noted Time PHQ-9 Depression Total Score: 10 020 9:19 AM CDT documented as of this encounter Care Teams Paralegal Assistant Relationship Specialty Start Date End Date Enrrique Ordonez MD PCP - General Family Medicine 08/03/19 10/12/23 Rohit Hodgson, SUPERVISOR GROUNDS, ADMISSIONS SPECIALIST #[address] [address] PCP - General Advanced Practice Nurse 10/14/23 documented as of this encounter
--- OUTSIDE RECORDS SUMMARY | 2024-06-20 16:37 | XMS_ITS | Encounter Summary ---
Author Organization [facility] Address [address] [place] [address] Phone Care Team Providers Care Driver Education Instructor Name Role Phone Enrrique Ordonez MD Primary Care Provider [phone] Rohit Hodgson APRN, CNP Primary Care Pr ovider Reason for Visit * Reason Comments Medication Refill Encounter Details Date Type Department Care Team (Late st Contact Info) Description 10/25/[address] 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 [...] Dept 04/26/22 Telemedicine Rohit Hodgson APRN, EMMANUEL [facility] 02/01/22 Office Visit Enrrique Ordonez MD [facility] 01/04/22 Office Visit Enrrique Ordonez MD [facility] 12/07/21 Office Visit Enrrique Ordonez MD [facility] 11/09/21 Office Visit Enrrique Ordonez MD [facility] Showing recent visits within past 365 [...] 19 12/21/2022 12/21/2022 12/31/2022 12:1 6 AM SPLASH LINE OPERATOR Assessment Noted Time PHQ-9 Depression Total Score: 10 020 9:19 AM CDT documented as of this encounter Care Teams Driver Education Instructor Relationship Specialty Start Date End Date Enrrique Ordonez MD PCP - General Family Medicine 08/03/19 10/12/23 Rohit Hodgson APRN, METER REPAIR SHOP SUPERVISOR [address] [place] [address] PCP - General Advanced Practice Nurse 10/14/23 documented as of this encounter
--- OUTSIDE RECORDS SUMMARY | 2024-06-20 16:37 | XMS_ITS | Encounter Summary ---
Author Organization [facility] Address [address] 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 No / Unsure 03/20/2021 10:09 AM FUR TRAPPER documented as of this encounter Miscellaneous Notes [...] 90 days and meeting all other requirements TRAPPER documented in this encounter Plan of Treatment Not on file documented as of this encounter Visit Diagnoses Diagnosis Neuropathy Mononeuritis of unspecified site documented in this encounter Additional Health Concerns Infection Onset Date Last Indicated Resolved Time COVID - 19 12/21/2022 12/21/2022 12/31/2022 12:1 6 AM FUR TRAPPER Assessment Noted Time PHQ-9 Depression Total Score: 10 020 9:19 AM CDT documented as of this encounter Care Teams Driller Multiple Spindle Relationship Specialty Start Date End Date Enrrique Ordonez MD PCP - General Family Medicine 08/03/19 10/12/23 Rohit Hodgson APRN, MEDIA PLANNER / BUYER #[address] [address] PCP - General Advanced Practice Nurse 10/14/23 documented as of this encounter
--- OUTSIDE RECORDS SUMMARY | 2024-06-20 16:37 | XMS_ITS | Encounter Summary ---
Author Organization [facility] Address [address] 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 Pharm/meds/allergies/address verified First positive answer [...] 19 12/21/2022 12/21/2022 12/31/2022 12:1 6 AM RAND MAKER Assessment Noted Time PHQ-9 Depression Total Score: 10 020 9:19 AM CDT documented as of this encounter Care Teams Wood Craftsman Relationship Specialty Start Date End Date Enrrique Ordonez MD PCP - General Family Medicine 08/03/19 10/12/23 Rohit Hodgson, REWINDER OPERATOR HELPER, FISCAL ACCOUNTING CLERK [address] [place] [address] PCP - General Advanced Practice Nurse 10/14/23 documented as of this encounter
--- NOTE | 2024-06-20 18:08 | LDADM ---
This patient, Adrienne Carcamo, was admitted to Labor/Delivery/Recovery 103 on 06/20/24 at 16:06. Plans for labor, pain management and were discussed with patient. Patient/family oriented to hospital policies and general routines including ID bracelet, bed and alarms, visiting hours, pain management, procedures, bathroom and other care routines, personal items, smoking policy, room service/diet and guest tray routines, infant security routines, and visiting hours. Patient/Family are encouraged to report perceived risks to care and to ask questions if they do not understand what they are told or what they should do. See OBIX for further documentation.
[2024-06-20 19:19] LABS: Basophils Percent Auto 0.1 % (0.2-1.2); Eosinophils Absolute Auto 0.1 K/mm3 (0-0.3); Eosinophils Percent Auto 0.7 % (0-4.4); Hematocrit 32.2 % (37.0-47.0); Hemoglobin 10.3 g/dL (12.0-15.0); Immature Granulocyte Absolute 0.02 K/mm3 (0.00-0.031); Immature Granulocyte Percent A 0.2 % (0-0.5); Immature Platelet Fraction Pct 5.8 % (0.9-11.2); Lymphocytes Absolute Auto 1.69 K/mm3 (0.9-3.2); Lymphocytes Percent Auto 17.7 % (18.3-44.2); Mean Corpuscular Hemoglobin 27.5 pg (26-34); Mean Corpuscular Volume 86.1 fl (80-100); Monocytes Absolute Auto 0.6 K/mm3 (0.1-0.6); Monocytes Percent Auto 6.1 % (2.6-8.5); Neutrophils Absolute Auto 7.2 K/mm3 (1.3-6.7); Neutrophils Percent Auto 75.2 % (45.5-73.1); Platelet Count Result 260 k/mm3 (150-375); Red Blood Count 3.74 M/mm3 (4.2-5.4); Red Cell Distribution Width 13.8 % (11.5-14.5); White Blood Count 9.6 K/mm3 (4.5-10.0)
[2024-06-20] MEDS: DINOPROSTONE 10 MG VAG INSERT VAGINAL (19:22)
[2024-06-20] MEDS: LACTATED RINGERS 1,000 ML 125 ML IV CONT (19:24)
[2024-06-20] MEDS: AMPICILLIN 2 GM/NS 100 ML 2 GM/100 ML BAG IVPB (19:25)
[2024-06-20 19:49] LABS: Syphilis IgG/IgM Antibody Negative (Negative)
[2024-06-20 20:02] LABS: HIV 1/2 Ab P24 Ag Result Negative (Negative)
[2024-06-20] MEDS: AMPICILLIN 1 GM/NS 50 ML 1 GM/50 ML BAG IVPB (23:25)
[2024-06-21] VITALS (149 sets, daily range): BP systolic 102–151; BP diastolic 50–121; PULSE 59–129; RESP 18; TEMP 36.1–36.8; O2SAT 85–100
[2024-06-21] MEDS: AMPICILLIN 1 GM/NS 50 ML 1 GM/50 ML BAG IVPB ×5 (03:28→19:35)
[2024-06-21] MEDS: FAMOTIDINE 20 MG/2 ML VIAL IV PUSH (06:50)
[2024-06-21] MEDS: OXYTOCIN 30 UNITS/NS 500 ML 30 UNITS/500 ML BAG IV CONT (06:55)
[2024-06-21] MEDS: LACTATED RINGERS 1,000 ML 125 ML IV CONT ×2 (10:54→16:32)
[2024-06-21] MEDS: fentaNYL CITRATE INJ (*CRX) 100 MCG/2 ML VIAL IV PUSH ×2 (13:50→15:14)
--- NOTE | 2024-06-21 15:55 | P.PNAN_ITS ---
Anes - Initial Pre Proc Eval Procedure: labor epidural Date/Time: 06/21/24 15:55 Surgeon: Jun Delgado MD Pre Op Diagnosis: labor pain Pre Op Diagnosis: IOL Patient Data Age: 33 Gender: F Height: 1.7 m Weight: 125 kg Last Vital Signs Temp 36.4 C L 06/21/24 14:01 Pulse 96 06/21/24 15:51 Resp 20 06/20/24 19:00 BP 150/80 H 06/21/24 15:51 Pulse Ox 96 06/21/24 15:51 O2 Del Method Room Air 06/21/24 09:07 Allergies Allergy/AdvReac Type Severity Reaction Status Date / Time No Known Allergies Allergy Mild Verified 06/20/24 18:06 Home Medications ?Medication ?Instructions ?Recorded ?Confirmed ?Type vitamins-iron fumarate 65 1 tablet PO DAILY 05/22/24 06/19/24 History mg iron-folic acid 1 mg tablet Laboratory Tests 06/20/24 18:33 WBC 9.6 K/mm3 (4.5-10.0) RBC 3.74 L M/mm3 (4.2-5.4) Hgb 10.3 L g/dL (12.0-15.0) Hct 32.2 L % (37.0-47.0) MCV 86.1 fl (80-100) MCH 27.5 pg (26-34) MCHC 32.0 g/dl (32-36) RDW 13.8 % (11.5-14.5) Plt Count 260 k/mm3 (150-375) MPV 11.0 H fl (7.4-10.4) Immature Gran % (Auto) 0.2 % (0-0.5) Neut % (Auto) 75.2 H % (45.5-73.1) Lymph % (Auto) 17.7 L % (18.3-44.2) [place] % (Auto) 6.1 % (2.6-8.5) Eos % (Auto) 0.7 % (0-4.4) Baso % (Auto) 0.1 L % (0.2-1.2) Lymph # (Auto) 1.69 K/mm3 (0.9-3.2) [place] # (Auto) 0.6 K/mm3 (0.1-0.6) Eos # (Auto) 0.1 K/mm3 (0-0.3) Baso # (Auto) 0.0 K/mm3 (0.0-0.1) Abs Immat Gran (auto) 0.02 K/mm3 (0.00-0.031) Absolute Neuts (auto) 7.2 H K/mm3 (1.3-6.7) Absolute Nucleated RBC 0.000 K/mm3 (0.0-0.012) Nucleated RBC % 0.0 % (0.0-0.2) % Immature Plt Fraction 5.8 % (0.9-11.2) Syphilis IgG/IgM Ab Negative (Negative) HIV 1&2 Ab/P24 Ag 4thGn Negative (Negative) Blood Type B Positive Antibody Screen Negative Patient hx anesthesia problems: none Family hx anesthesia problems: none Results Review: All pre-operative results and documents have been reviewed as part of the pre- operative evaluation. FOR[facility]LY [facility], [facility] Past Medical History Medical History Dysuria Itching of both hands Encounter for removal of intrauterine contraceptive device Family History Family History (Updated 06/19/24 @ 15:33 by Jaleesa Rockwell RN) Other No pertinent family history Social History Social History Smoking status: Former smoker Tobacco type: cigarettes Smoking end date: 05/23/24 Alcohol intake: never Substance use: never Do You Feel Safe in your Home?: Yes Lack of Transportation: No Lack of Food: Never True Current Housing: I Have Housing Concerned About Future Housing: No Difficulty Paying Gas/Electric Bills: No Difficulty Paying for Meds: No Currently Unemployed: No Education: Associate Degree Difficulty w/ Childcare or Family Care: No Living arrangements: with family Occupation/Education: occupation Gender identity (if verbalized by the patient): Female Sexual Orientation (if Verbalized by the Patient): Straight or Heterosexual Spiritual care concerns: No Anes - Eval Final PreProcedure Day of Procedure 06/21/24 15:55 Patient weight: morbidly obese ASA classification: III Anesthetic plan: proceed Anesthesia type and monitoring: regional epidural and standard monitoring Results Review: All pre-operative results and documents have been reviewed as part of the pre-operative evaluation. Informed Consent: The patient's anesthetic plan and its attendant risks and benefits were discussed with the patient/family/POA. Questions were solicited and answers provided to the satisfaction of the patient/family/POA.
--- NOTE | 2024-06-21 20:02 | WPDHPUPDATE1 ---
History and Physical Update Update Date/Time: 06/21/24 20:02 History and Physical has been reviewed, including an updated exam of the patient. There are NO changes in the patient's condition. Risks, benefits, and alternatives have been discussed and questions answered. Patient agrees to proceed with procedure.
--- NOTE | 2024-06-21 20:02 | WPDOBADMIT ---
Obstetrics - Admit Note Admission Note: record reviewed. No pertinent additions to the history and/or any subsequent changes in the physical findings that are not consistent with the expected course of the were found. Additions to the history and/or subsequent changes in the physical findings follow. None.
--- NOTE | 2024-06-21 20:02 | PM.OBPRVD ---
OB - Vaginal Delivery Note Procedure Delivery date: 06/21/24 Induction method: Per Cervidil Protocol Delivery augmentation: Rupture of Membranes and Pitocin Delivery monitor: External FHT and Internal Uterine Route of delivery: Episiotomy description: None Laceration Description: Vaginal Delivery repair: chromic Specimen: Yes Quantitative Blood Loss (ml): 300 Anesthesia type: Epidural Disposition: Floor Complications: No immediate complications Narrative: Patient prepped draped usual manner for this procedure. Maternal expulsive efforts delivered vertex over intact perineum. Nuchal cord was noted and reduced. Rest of baby was delivered without difficulty. Cord clamped cut and placenta delivered spontaneously. Uterus was well contracted with minimal bleeding. Small vaginal laceration was noted and repaired with a [id number] 2-0 chromic suture. This point the procedure was considered terminated with immediate postop condition mother baby both excellent. Baby Gestational Age by Date: 40 gender: Female presentation: vertex position: Left Occiput Anterior Placenta delivery description: Spontaneous Cord Vessel Description: 3 Vessels, Nuchal Cord and Reduced
[2024-06-21] MEDS: OXYTOCIN 30 UNITS/NS 500 ML 30 UNITS/500 ML BAG 125 UNITS IV CONT (20:22)
[2024-06-22 04:02] VITALS: PULSE 116; O2SAT 100
[2024-06-22 04:03] VITALS: BP 143/86; PULSE 105; PULSE 116; RESP 18; TEMP 37; O2SAT 100
[2024-06-22] MEDS: IBUPROFEN 600 MG TABLET PO ×3 (04:17→19:43)
[2024-06-22] MEDS: ACETAMINOPHEN 325 MG TABLET 650 MG PO ×3 (05:24→21:55)
--- NOTE | 2024-06-22 06:15 | PC.NURSE ---
Report given to Felecia Ramos RN.
--- NOTE | 2024-06-22 06:25 | OBPPTRN ---
Patient transferred to post room #289, patient ambulated to room. Support person present. Oriented to unit, room, information board, rooming in, admission packet and security measures. Patient verbalizes understanding.
[2024-06-22 06:30] VITALS: BP 130/83; PULSE 90; RESP 16; TEMP 36.4; O2SAT 98
[2024-06-22] MEDS: DOCUSATE SODIUM 100 MG CAPSULE PO ×2 (08:07→16:25)
[2024-06-22] MEDS: MULTIVIT/MIN/PREN/FOL AC/IRON TABLET 1 TAB PO (08:07)
--- NOTE | 2024-06-22 08:30 | PC.NURSE ---
0830: Patient request for a consult related to pumping and infant blood sugar concerns. Mom is planning to exclusively breastfeed but baby is having some low glucose issues and has needed glucose gel and formula supplementation. We reviewed need for continued attempts so baby continues to practice and learn the breast as well as the bottle. Mom does not have an insurance pump yet and has requested a Zomee pump for personal use. She was contemplating getting a wearable pump and she is encouraged to contact her insurance provider if that is her preference. She states that she would rather have a pump now, even if it isn't the wearable. Advised patient that it is normal to get small amounts or just drops when pumping. anticipatory guidance that the agent spa desk may want baby to continue with supplementation until the glucose issues have resolved. If any amount of colostrum is pumped that can be given in addition to formula. 0900: Mother set up with the Zomee pump. She was shown the basic parts and usage and how to use the manual and QR codes for in depth instruction. Nipple measured (20mm) and 24mm flange recommended per the Zomee guide. We tried each of the phases and patient is advised to use the highest comfortable setting. Patient states 'I have to hold these on the whole time?' Discussed ways to make a pumping bra from an old sports bra or purchasing a pumping bra. Patient removed the pump and placed it back in the box. Encouraged pumping for 15 minutes after every feeding that baby does not breastfeed robustly. Patient verbalized understanding. RN updated.
[2024-06-22 08:48] LABS: Hematocrit 30.8 % (37.0-47.0); Hemoglobin 9.8 g/dL (12.0-15.0)
--- NOTE | 2024-06-22 09:25 | WPDANLDPN2 ---
Anes-Prog Note L&D Date/Time: 06/22/24 09:25 Comfortable throughout: labor and delivery Neuraxial method: epidural Epidural/Spinal procedure site: tender Neuro status: Neuro function grossly intact. Cardiovascular status: normal Respiratory status: normal Airway patency: baseline Mental status: baseline Post-Op hydration status: normal Vital Signs: Last Vital Signs Temp 36.4 C 06/22/24 06:30 Pulse 90 06/22/24 06:30 Resp 16 06/22/24 06:30 BP 130/83 06/22/24 06:30 Pulse Ox 98 06/22/24 06:30 O2 Del Method Room Air 06/21/24 09:07 Pain score (VAS): 0/10 I/O: Intake & Output 06/21/24 06/22/24 06/22/24 23:59 07:59 15:59 Intake Total 1400 500 Output Total 300 Balance 1100 500 Post-procedural complaints: none Patient feedback: Patient satisfied with anesthetic care.
[2024-06-22] MEDS: POLYSACCHARIDE IRON COMPLEX 150 MG CAPSULE PO ×2 (09:58→16:25)
--- NOTE | 2024-06-22 11:15 | PC.NURSE ---
1115: Mother requested feeding assistance. Baby is very fussy and acts hungry but will not latch to the breast. She was able to suck on a gloved finger but didn't sustain a long sucking burst. Mom does a great job holding her in football and bringing her close to latch when baby opens wide. Baby turns her head side to side but will not make a seal around the breast. We attempted to calm baby and start attempting again on the right breast, but baby reacted in the same way. Mom is feeling discouraged and states that giving a bottle seems like a good option at this time. We discussed that she has options and we can support her however she chooses. Mom is encouraged to place baby skin to skin and try again in about 15 minutes. Updated RN. 1140: Mother called out for assistance with swaddling baby. Baby is still very fussy and mom was able to get her to latch for about five minutes on the left breast. Mom requests to supplement after this feeding due to the previous glucose issues and the fact that baby seems hungry but won't sustain a feeding at breast. Slow flow nipple given and mom instructed to call out if baby doesn't take at least 10-15ml. Father of baby left and mom states that she is very tired. Encouraged her to try to nap today when baby is sleeping. Updated RN.
[2024-06-22 12:43] VITALS: BP 137/73; PULSE 97; RESP 18; TEMP 36.4; O2SAT 98
[2024-06-22 16:01] VITALS: PULSE 97; RESP 18; O2SAT 98
[2024-06-22] MEDS: HYDROcodone/acetaminophen (*CRX) 5-325 MG TABLET 1 TAB PO ×2 (17:39→23:38)
[2024-06-22 19:46] VITALS: BP 123/84; PULSE 94; RESP 16; TEMP 37; O2SAT 100
[2024-06-23] MEDS: IBUPROFEN 600 MG TABLET PO ×2 (04:06→11:45)
[2024-06-23 07:45] VITALS: BP 146/86; PULSE 82; RESP 16; TEMP 36; O2SAT 100
[2024-06-23] MEDS: HYDROcodone/acetaminophen (*CRX) 5-325 MG TABLET 1 TAB PO ×2 (07:50→14:46)
[2024-06-23] MEDS: MULTIVIT/MIN/PREN/FOL AC/IRON TABLET 1 TAB PO (07:50)
[2024-06-23] MEDS: POLYSACCHARIDE IRON COMPLEX 150 MG CAPSULE PO (07:50)
--- NOTE | 2024-06-23 12:10 | PC.NURSE ---
Consulted with mother concerning needs and she shared her ability to independently latch infant but that she is mostly pumping and bottle feeding at this time. Baby is very fussy at breast and mom gets overwhelmed easily. Mother is feeding appropriately for growth of and understands stimulating to eat if needed. has had appropriate feedings in the last 24 hours meets the outcomes for weight, output, blood sugar and jaundice at this time. Reinforced understanding of milk production, transition of milk, signs of adequate intake, transition of stool, prevention/relief of engorgement, plugged ducts, mastitis, responsive watching for feeding cues, the different methods of stimulating to breastfeed 1-3 hours after the start of the last feeding, community resources ([facility] referral to [place]), and when to call a provider using the resource of the feeding sheet along with the mom and baby guide. She was given a Zomee pump through insurance and is comfortable with it's use. Encouraged her to be consistent with pumping and to give baby any drops of colostrum on a clean finger. We reviewed benefits of feeding directly at the breast. She won a [employer] gift basket from the [employer] and is very excited about the items she received. We reviewed that the team is available to assist her throughout her journey. Mother voiced understanding of the information shared, is confident to continue effectively feeding her infant at home, when to call for assistance, denies any additional assistance or education at this time. Reported to the Primary RN.
--- NOTE | 2024-06-23 12:16 | PM.OBDSVD ---
DS: Admitting Diagnosis Discharge Date 06/23/2024 Admitting Diagnosis DS: Discharge Diagnosis Discharge Diagnosis (1) , delivered: Code(s): O80 - Encounter for full-term uncomplicated delivery Status: Acute OB - DS: Summary OB Procedures : None OB Procedures Intrapartum: Spontaneous Vag Delivery OB Procedures: : None Peripartum Data Laceration Description: Vaginal Episiotomy description: None Time Spent with Patient Time attestation: Total time spent providing and/or coordinating discharge services: DS: Data Data Completed and Pending Pending studies at discharge: Pending at discharge 06/22/24 10:59 Surgical [PTH] Routine Discharge Plan Discharge Discharging Clinician: Jun Delgado Patient Disposition: Home Activity: no straining, follow weight bearing status and pelvic rest Diet: as tolerated Patient Instructions: Antibiotic Form Patient Language: Amharic Stand Alone Forms: General Discharge Information Follow-up/Referrals: Jun Delgado MD [Physician] - 4 Weeks Discharge Medications: New hydrocodone-acetaminophen 5-325 mg Tablet 1 tablet PO Q6H Qty: 12 0RF ibuprofen 600 mg Tablet 600 mg PO Q6H PRN (Reason: Cramping) Qty: 30 0RF Continued vit-iron fum-folic ac 65 mg iron- 1 mg tablet 1 tablet PO DAILY Date of admission: 06/20/24 16:06 Primary Care Provider: UNKNOWN,DOCTOR Admitting Provider: Jun Delgado Attending physician on admission: Jun Delgado Condition: Stable
[2024-06-25 14:45] VITALS: BP 136/75; PULSE 100; RESP 16; TEMP 36.4; O2SAT 100
== END 2024-06-23 15:50 | disposition home or self-care (01) | DRG 560 ==
LOC: ANHLDR 16:10 → ANHOB2 06-22 06:48
PROVIDERS: Admitting Provider Obstetrics & Gynecology; Visit Provider Obstetrics & Gynecology
DX: O99.824 Streptococcus B carrier state complicating childbirth (principal); Z37.0 Single live birth; Z3A.40 40 weeks gestation of pregnancy; O69.81X0 Labor and delivery complicated by cord around neck, without compression, not applicable or unspecified; O71.4 Obstetric high vaginal laceration alone
CPT/HCPCS: 36415; 85014; 85018; 85025; 85055; 86593; 86703; 86850; 86900; 86901; 88307; A9270; G0432; J0290; J2590; J2795; J3010; J7120

== ENCOUNTER 2024-07-10 13:56 | Outpatient (RCR) | payer MEDICAID, SELFPAY ==
--- NOTE | 2024-07-10 15:46 | PC.NURSE ---
In- 1400 Out- 1510 Reason for visit: concerns for low milk supply and difficulties History: Mom had a normal vaginal delivery. She has a 6 year old but did not breastfeed that child. She did have mild HTN in but no pre-E. Mom confirms she did have breast changes during her and feels fullness and a let down when she starts to feed. Mom reports she does hear swallowing with feedings, but she is unsure how much is getting with each feed. Mom reports she pumps on occasion and on average will pump about 1-1.5 oz of milk after a breastfeed. Infant History: Damon Kaba is a healthy 3 week old . Mom reports that Sendy was on blood sugar checks for a short time after delivery but did not have to get an IV for D10 fluids.Mom started supplementing damon Kaba in the hospital for low blood sugars and has continued to supplement since then after each feeding. Mom reports that she feeds Sendy around the clock every 2-3 hours. She says on average Sendy eats for 20min at the breast, and then she supplements with another 1.5-3 oz of formula after. She reports that at some feedings Sendy will spit up 0.25-0.5 oz of milk after the feeding. She reports that Sendy has 8-10 wet diapers in a day and on average 1 stool a day. Observations: Damon Kaba latched optimally in football position without difficulty. Sendy latched and fed for about 25 minutes during the feeding session, with many frequent swallows heard. Damon Kaba was weighed before and after the feeding. She transferred a total of 52ml or 1.8oz of breastmillk. Mom also uses a [place] on the opposite breast while she is . She was able to collect a total of 1 oz during the feeding. She fed the 1 oz to Kaba after the post weight was taken. So intotal, for our observed feeding session mom fed Sendy a total of 2.8oz of breastmilk. During the feeding Sendy fed without difficulty. After the feeding, Sendy seemed more relaxed and content. She burped and seemed sleepy. After the feeding mom expressed her concerns of Sendy's fussiness, we discussed at times infant could be sleepy or gassy and not always hungry. Mom was encouraged to burp Sendy and snuggle her. Sendy immediately was soothed and began to fall asleep. We reviewed that if she doesnt stay asleep and shows hunger cues than it is appropriate to try and feed her more milk at the breast or with a bottle. weight: 9 lbs 6 oz Lowest weight: 9 lb 3 oz Pre-feed weight: 10 lb 4.9 oz Post-feed weight: 10 lb 5.8 oz Plan of Care: Mom expressed her desire to just breastfeed and stop supplementing with formula. Mom was encouraged to know that Sendy received 2.8 oz of milk during our feeding session. She was encouraged to call Dr Land to discuss potentially stopping the formula supplementation, and just on demand. Adrienne was also given instruction for boosting her milk supply with power pumping and nursing Sendy every 1-3 hours on demand. All of moms questions and concerns answered at this time. Follow up plans: Mom was encouraged to call Dr. Land to discuss attempting to stop supplementing with formula after each breastfeed if that is her desire. She has a block paver appt scheduled for early July and plans to make an earlier appt for a weight check if need be per her discussion with Dr Land. team at [facility] will call Adrienne to follow up in 1-2 days, and she can always come back for a follow up appt if needed.
== END 2024-10-08 23:59 | disposition home or self-care (01) ==
LOC: ANHOBOP 13:56
PROVIDERS: Visit Provider Pediatrics Adolescent Medicine
DX: Z39.1 Encounter for care and examination of lactating mother (principal)
CPT/HCPCS: 99212; G0463